=== PATIENT | male | born 1965 | race Caucasian/White ===

== ENCOUNTER 2018-07-27 09:39 | Inpatient (IN) | payer OTHER ==
[2018-07-27 10:40] VITALS: BMI 22.2
--- NOTE | 2018-07-27 12:48 | HP ---
CIWA Score Nausea/Vomitin-No Nausea/No Vomiting Muscle Tremors: 4-Moderate,w/Arms Extend Anxiety: 4-Mod. Anxious/Guarded Agitation: 4-Moderately Restless Paroxysmal Sweats: 3 Orientation: 0-Oriented Tacttile Disturbances: 0-None Auditory Disturbances: 0-None Visual Disturbances: 0-None Headache: 1-Very Mild CIWA-Ar Total Score: 16 - Admission Criteria OASAS Guidelines: Admission for Medically Managed Detox: Requires at least one of the followin. CIWA greater than 12 2. Seizures within the past 24 hours 3. Delirium tremens within the past 24 hours 4. Hallucinations within the past 24 hours 5. Acute intervention needed for co occurring medical disorder 6. Acute intervention needed for co occurring psychiatric disorder 7. Severe withdrawal that cannot be handled at a lower level of care (continued vomiting, continued diarrhea, abnormal vital signs) requiring intravenous medication and/or fluids 8. Admission ROS [facility] - [facility] Chief Complaint: I recently relapsed and need to start anew. I was clean/sober close to 12years. Allergies/Adverse Reactions: Allergies Allergy/AdvReac Type Severity Reaction Status Date / Time shellfish derived Allergy Severe Hives Verified 07/27/18 11:48 No Known Drug Allergies Allergy Verified 07/27/18 11:48 History of Present Illness: pt is a 53yr old male with a long sobriety (12years) who recently relapsed with a dependence of alcohol. Pt is on a MMTP program last dosed yesterday with 80mg pending verification. Exam Limitations: No Limitations - Ebola screening Have you traveled outside of the country in the last 21 days: No Have you had contact with anyone from an Ebola affected area: No Have you been sick,other than usual withdrawal symptoms: No - Review of Systems Constitutional: Chills, Diaphoresis, Loss of Appetite, Night Sweats, Changes in sleep EENT: reports: Tearing, Nose Congestion Respiratory: reports: No Symptoms reported Cardiac: reports: No Symptoms Reported GI: reports: Poor Appetite, Poor Fluid Intake : reports: No Symptoms Reported Musculoskeletal: reports: Back Pain Integumentary: reports: Flushing, Sweating, Other (open chronic ulcer to left inner ankle) Neuro: reports: Headache, Tingling, Tremors Endocrine: reports: Excessive Sweating, Flushing, Intolerance to Cold, Intolerance to Heat Hematology: reports: No Symptoms Reported Psychiatric: reports: Judgement Intact, Mood/Affect Appropiate, Orientated x3, Agitated, Anxious Other Systems: Reviewed and Negative Patient History - Patient Medical History Hx Anemia: No Hx Asthma: No Hx Chronic Obstructive Pulmonary Disease (COPD): No Hx Cancer: No Hx Cardiac Disorders: No Hx Congestive Heart Failure: No Hx Hypertension: No Hx Hypercholesterolemia: No Hx Pacemaker: No HX Cerebrovascular Accident: No Hx Seizures: No Hx Dementia: No Hx Diabetes: No Hx Gastrointestinal Disorders: No Hx Liver Disease: No Hx Genitourinary Disorders: No Hx Sexually Transmitted Disorders: No Hx Renal Disease (ESRD): No Hx Thyroid Disease: No Hx Human Immunodeficiency Virus (HIV): Yes (since 1982) Hx Hepatitis C: Yes Hx Depression: Yes Hx Suicide Attempt: Yes (hanged self with a rope at age 24) Hx Schizophrenia: No - Patient Surgical History Past Surgical History: No Hx Neurologic Surgery: No Hx Cataract Extraction: No Hx Cardiac Surgery: No Hx Lung Surgery: No Hx Breast Surgery: No Hx Breast Biopsy: No Hx Abdominal Surgery: No Hx Appendectomy: No Hx Cholecystectomy: No Hx Genitourinary Surgery: No Hx Section: No Hx Orthopedic Surgery: No Anesthesia Reaction: No - PPD History Previous Implant?: Yes Documented Results: Negative w/proof Implanted On Prior [facility] Admission?: Yes Date: 02/20/13 Results: 0 mm PPD to be Administered?: Yes - Reproductive History Patient is a Female of Child Bearing Age (11 -55 yrs old): No - Smoking Cessation Smoking history: Current every day smoker Have you smoked in the past 12 months: Yes Aproximately how many cigarettes per day: 10 Hx Chewing Tobacco Use: No Initiated information on smoking cessation: Yes 'Breaking Loose' booklet given: 07/27/18 - Substance & Tx. History Hx Alcohol Use: Yes Hx Substance Use: Yes Substance Use Type: Alcohol, Heroin Hx Substance Use Treatment: Yes (last detox 2012 [facility]) - Substances Abused Heroin Route: Injection Frequency: Daily Amount used: 4-5 bags Age of first use: 10 Date of Last Use: 07/27/18 Alcohol-beer Route: Oral Frequency: Daily Amount used: 2-6 pks. Age of first use: 48 Date of Last Use: 07/26/18 Family Disease History - Family Disease History Family History: Denies Admission Physical Exam BHS - Vital Signs Vital Signs: Vital Signs - 24 hr 07/27/18 10:37 Temperature 98.0 F Pulse Rate 59 L Respiratory 18 Rate Blood Pressure 130/89 - Physical General Appearance: Yes: Appropriately Dressed, Mild Distress, Thin, Tremorous, Irritable, Sweating, Anxious HEENTM: Yes: Hearing grossly Normal, Normal Voice, Nasal Congestion, Rhinorrhea Respiratory: Yes: Lungs Clear, Normal Breath Sounds, No Respiratory Distress Neck: Yes: No masses,lesions,Nodules Breast: Yes: Within Normal Limits Cardiology: Yes: Regular Rhythm, Regular Rate, S1, S2 Abdominal: Yes: Normal Bowel Sounds, Non Tender, Soft Genitourinary: Yes: Within Normal Limits Back: Yes: Normal Inspection Musculoskeletal: Yes: full range of Motion Extremities: Yes: Normal Capillary Refill, Non-Tender, Tremors Neurological: Yes: Fully Oriented, Alert, Normal Response Integumentary: Yes: Normal Color, Track Staples Lymphatic: Yes: Within Normal Limits - Diagnostic (1) Alcohol dependence with uncomplicated withdrawal Current Visit: Yes Status: Chronic (2) Nicotine dependence Current Visit: Yes Status: Chronic Qualifiers: Nicotine product type: cigarettes Substance use status: uncomplicated Qualified Code(s): F17.210 - Nicotine dependence, cigarettes, uncomplicated (3) Bipolar disorder Current Visit: No Status: Active (4) Hepatitis C carrier Current Visit: No Status: Active (5) Human immunodeficiency virus infection Current Visit: Yes Status: Chronic (6) Weight decreased Current Visit: Yes Status: Chronic (7) Chronic ulcer of ankle Current Visit: Yes Status: Acute Qualifiers: Laterality: left Non-pressure ulcer stage: limited to breakdown of skin Qualified Code(s): L97.321 - Non-pressure chronic ulcer of left ankle limited to breakdown of skin Cleared for Admission [facility] - Detox or Rehab [facility] Level of Care: Medically Managed Detox Regimen/Protocol: Librium [facility] Breath Alcohol Content Breath Alcohol Content: 0 Urine Drug Screen - Results Drug Screen Negative: No Urine Drug Screen Results: DELL-Cocaine, OPI-Opiates, OXY-Oxycodone, FEN-Fentanyl
[2018-07-27] MEDS ORDERED: MENTHOL/PHENOL 1 EACH UD MM PRN (12:54)
[2018-07-27] MEDS ORDERED: chlordiazePOXIDE HCL 25 MG CAPSULE PO PRN (12:54)
[2018-07-27] MEDS ORDERED: hydrOXYzine PAMOATE 50 MG CAPSULE (FP) PO PRN (12:54)
[2018-07-27] MEDS ORDERED: MAGNESIUM CITRATE 300 ML BOTTLE PO PRN (12:54)
[2018-07-27] MEDS ORDERED: NICOTINE POLACRILEX 4 MG GUM BC PRN (12:54)
[2018-07-27] MEDS ORDERED: MAGNESIUM HYDROX 2400MG/30ML ORAL SUSPENSION 30 ML CUP PO PRN (12:54)
[2018-07-27] MEDS ORDERED: LOPERAMIDE HCL 2 MG CAPSULE PO PRN (12:54)
[2018-07-27] MEDS ORDERED: IBUPROFEN 400 MG TABLET (FP) PO PRN (12:54)
[2018-07-27] MEDS ORDERED: P-EPHED 60MG/TRIPROLIDI 2.5MG TABLET PO PRN (12:54)
[2018-07-27] MEDS ORDERED: guaiFENesin/D-METHORPHAN HB 10 ML UNIT-DOSE CUPS PO PRN (12:54)
[2018-07-27] MEDS ORDERED: chlordiazePOXIDE HCL 25 MG CAPSULE PO ONE (14:00)
[2018-07-27] MEDS: chlordiazePOXIDE HCL 25 MG CAPSULE PO SCH ×2 (17:18→22:27)
[2018-07-27] MEDS ORDERED: MELATONIN 5 MG TABLETS PO PRN (22:00)
[2018-07-27] MEDS: THIAMINE HCL 100 MG TABLET (FP) PO SCH (22:26)
[2018-07-27] MEDS: SILVER SULFADIAZINE 1% TOP CREAM 50 GM JAR TP SCH (22:28)
[2018-07-27 23:20] LABS: URINE APPEARANCE TURBID; URINE BILIRUBIN NEGATIVE (<2.0 mg/dL); URINE COLOR AMBER; URINE GLUCOSE (UA) NEGATIVE (NEGATIVE); URINE KETONE TRACE (NEGATIVE); URINE LEUK ESTERASE NEGATIVE (NEGATIVE); URINE NITRITE NEGATIVE (NEGATIVE); URINE PROTEIN 1+ (NEGATIVE)
[2018-07-27 23:32] LABS: EPI CELLS RARE /HPF (FEW); URINE BACTERIA RARE /hpf (NONE SEEN); URINE HYALINE CAST 1 /lpf; URINE MUCUS MANY
[2018-07-28] MEDS: chlordiazePOXIDE HCL 25 MG CAPSULE PO SCH ×4 (05:39→22:28)
[2018-07-28] MEDS: DOLUTEGRAVIR SODIUM 50 MG TABLET (NON-FORMULARY) PO SCH (05:39)
[2018-07-28] MEDS: EMTRICITABINE/TENOFOV ALAFENAM (DESCOVY) TABLET PO SCH (05:39)
[2018-07-28] MEDS: SILVER SULFADIAZINE 1% TOP CREAM 50 GM JAR TP SCH ×2 (10:32→22:29)
[2018-07-28] MEDS: PRENATAL VITAMINS W/ FOLIC ACID TABLET (FP) PO SCH (10:32)
[2018-07-28] MEDS: NICOTINE 21 MG/24 HOURS TOPICAL PATCH TD SCH (10:32)
[2018-07-28 10:49] LABS: HEMOGLOBIN 10.9 GM/dL (11.7-16.9); MCH 30.1 pg (25.7-33.7); MCHC 32.9 g/dl (32.0-35.9); MEAN CELL VOLUME 91.3 fl (80-96); MEAN PLT VOLUME 9.1 fl (7.5-11.1); PLATELET COUNT 180 K/MM3 (134-434); RBC 3.62 M/mm3 (4.00-5.60); RDW 12.9 % (11.9-15.9); WHITE BLOOD COUNT 3.9 K/mm3 (4.0-10.0)
[2018-07-28 11:12] LABS: ALBUMIN 3.7 g/dl (3.4-5.0); ALK PHOS 82 U/L (45-117); ANION GAP 6 MMOL/L (8-16); BILIRUBIN,TOTAL 0.3 mg/dL (0.2-1); BLOOD UREA NITROGEN 17 mg/dL (7-18); CALCIUM 8.2 mg/dL (8.5-10.1); CHLORIDE 105 mmol/L (98-107); CO2 29 mmol/L (21-32); CREATININE 1.4 mg/dL (0.55-1.3); GLUCOSE,RANDOM 98 mg/dL (74-106); POTASSIUM 4.2 mmol/L (3.5-5.1); SGOT/AST 21 U/L (15-37); SGPT/ALT 25 U/L (13-61); SODIUM 140 mmol/L (136-145); TOT PROT 8.3 g/dl (6.4-8.2)
[2018-07-28] MEDS ORDERED: METHADONE HCL 40 MG DISPERSABLE TABLET PO ONE (11:15)
--- NOTE | 2018-07-28 12:02 | PN ---
S CIWA - CIWA Score Nausea/Vomitin-No Nausea/No Vomiting Muscle Tremors: 4-Moderate,w/Arms Extend Anxiety: 4-Mod. Anxious/Guarded Agitation: 2 Paroxysmal Sweats: 1-Minimal Palms Moist Orientation: 0-Oriented Tacttile Disturbances: 0-None Auditory Disturbances: 0-None Visual Disturbances: 0-None Headache: 0-None Present CIWA-Ar Total Score: 11 [facility] Progress Note (SOAP) Subjective: ANXIETY, SWEATS,INTERMITTENT SLEEP. Objective: 07/28/18 12:01 Vital Signs 07/28/18 07/28/18 06:28 09:43 Temperature 96.9 F L 97.2 F L Pulse Rate 51 L 67 Respiratory 18 18 Rate Blood Pressure 145/82 119/86 Laboratory Tests 07/27/18 07/28/18 07/28/18 23:00 05:30 05:30 WBC 3.9 L RBC 3.62 L Hgb 10.9 L Hct 33.0 L MCV 91.3 MCH 30.1 MCHC 32.9 RDW 12.9 Plt Count 180 D MPV 9.1 Sodium 140 Potassium 4.2 Chloride 105 Carbon Dioxide 29 Anion Gap 6 L BUN 17 Creatinine 1.4 H Creat Clearance w eGFR 52.62 Random Glucose 98 Calcium 8.2 L Total Bilirubin 0.3 AST 21 ALT 25 Alkaline Phosphatase 82 Total Protein 8.3 H Albumin 3.7 Urine Color Radha Urine Appearance Turbid Urine pH 5.0 Ur Specific [place] 1.027 Urine Protein 1+ H Urine Glucose (UA) Negative Urine Ketones Trace H Urine Blood Negative Urine Nitrite Negative Urine Bilirubin Negative Urine Urobilinogen 2.0 Ur Leukocyte Esterase Negative Urine WBC (Auto) 1 Urine RBC (Auto) <1 Ur Epithelial Cells Rare Urine Bacteria Rare Hyaline Casts 1 Urine Mucus Many BORDERLINE LOW H/H PT HAS A HX OF BORDERLINE H/H IN PREVIOUS ADMISSIONS Assessment: 07/28/18 12:01 WITHDRAWAL SX BORDERLINE ANEMIA Plan: CONTINUE DETOX FEOSOL 325 MG PO DAILY
--- NOTE | 2018-07-28 12:02 | CONSULT ---
[facility] Psychiatric Consult - Data Date of interview: 07/28/18 Admission source: [facility] Identifying data: Readmission to [facility] for this 53 y/o male seeking detoxification treatment on for cocaine, opioid and alcohol dependence. Patient is single, a father of one, domiciled, unemployed and supported via [employer] benefits. Substance Abuse History: Confirmed by the patient in my interview. Detail in this segment of current [facility] report : Smoking history: Current every day smoker. Have you smoked in the past 12 months: Yes. Aproximately how many cigarettes per day: 10. Hx Chewing Tobacco Use: No. Initiated information on smoking cessation: Yes. 'Breaking Loose' booklet given: 07/27/18. - Substance & Tx. History. Hx Alcohol Use: Yes. Hx Substance Use: Yes. Substance Use Type: Alcohol, Heroin. Hx Substance Use Treatment: Yes (last detox 2013 [facility]). - Substances Abused. Heroin. Route: Injection. Frequency: Daily. Amount used: 4-5 bags. Age of first use: 10. Date of Last Use: 07/27/18. Alcohol- beer. Route: Oral. Frequency: Daily. Amount used: 2-6 pks. Age of first use : 48. Date of Last Use: 07/26/18 Medical History: Hypertension and HIV infection since 1982 (on ART medications). Psychiatric History: Patient admits to a history of multiple psychiatric hospitalizations ([facility] + [facility]). Last hospitalized in 2011 (self-report). Diagnosed with MDD. Mr Blanco indicates that he used to see a psychiatrist at the [facility] in the [place]. Dropped out of psychiatric aftercare four years ago (has not taken psychotropic medications for same period of time). Names of medications ( prescribed in the past) : not recalled by the patient. Admits to four suicide attempts via various means (hanging, jumping onto traffic path, overdosing with pills). Most recent suicide attempt occurred in 2017 (overdose). Patient is currently on methadone maintenance (80 mg/day) at the [facility]. Physical/Sexual Abuse/Trauma History: Not discussed. Patient declines. Additional Comment: Urine Drug Screen Results: DELL-Cocaine, OPI-Opiates, OXY- Oxycodone, FEN-Fentanyl. Noted. Mental Status Exam - Mental Status Exam Alert and Oriented to: Time, Place, Person Cognitive Function: Good Patient Appearance: Well Groomed Mood: Nervous, Withdrawn, Anxious Affect: Mood Congruent Patient Behavior: Fatigued, Appropriate, Cooperative Speech Pattern: Clear, Appropriate Voice Loudness: Normal Thought Process: Intact, Goal Oriented Thought Disorder: Not Present Hallucinations: Denies Suicidal Ideation: Denies Homicidal Ideation: Denies Insight/Judgement: Poor Sleep: Well Appetite: Good Muscle strength/Tone: Normal Gait/Station: Normal Psychiatric Findings - Problem List ([place] 1, 2,3) (1) Opioid dependence on agonist therapy Current Visit: Yes Status: Acute (2) Alcohol dependence with uncomplicated withdrawal Current Visit: Yes Status: Acute (3) Nicotine dependence Current Visit: Yes Status: Chronic Qualifiers: Nicotine product type: cigarettes Substance use status: uncomplicated Qualified Code(s): F17.210 - Nicotine dependence, cigarettes, uncomplicated (4) Substance induced mood disorder Current Visit: Yes Status: Acute (5) Non-compliant patient Current Visit: Yes Status: Chronic - Initial Treatment Plan Initial Treatment Plan: Psychoeducation. Sleep hygiene. Detoxification. Patient is encouraged to re-enlist in OPD follow-up (recreate a therapeutic alliance with a therapist/psychiatrist + engage in psychotherapy + discuss need for psychotropic medications with OPD providers + commit to relapse prevention protocols). In the meantime, AA/NA meetings. Group/supportive therapy sessions. Observation.
[2018-07-28] MEDS: FERROUS SO4 325 MG TABLET (FP) PO SCH (13:16)
[2018-07-28] MEDS: THIAMINE HCL 100 MG TABLET (FP) PO SCH (22:28)
[2018-07-29] MEDS: METHADONE HCL 40 MG DISPERSABLE TABLET PO SCH (05:29)
[2018-07-29] MEDS: chlordiazePOXIDE HCL 25 MG CAPSULE PO SCH ×2 (05:29→10:13)
[2018-07-29] MEDS: DOLUTEGRAVIR SODIUM 50 MG TABLET (NON-FORMULARY) PO SCH (05:29)
[2018-07-29] MEDS: EMTRICITABINE/TENOFOV ALAFENAM (DESCOVY) TABLET PO SCH (05:30)
[2018-07-29] MEDS: FERROUS SO4 325 MG TABLET (FP) PO SCH (10:13)
[2018-07-29] MEDS: PRENATAL VITAMINS W/ FOLIC ACID TABLET (FP) PO SCH (10:13)
[2018-07-29] MEDS: NICOTINE 21 MG/24 HOURS TOPICAL PATCH TD SCH (10:14)
[2018-07-29] MEDS: SILVER SULFADIAZINE 1% TOP CREAM 50 GM JAR TP SCH ×2 (10:14→22:06)
--- NOTE | 2018-07-29 15:04 | PN ---
[facility] CIWA - CIWA Score Nausea/Vomitin-No Nausea/No Vomiting Muscle Tremors: 2 Anxiety: 3 Agitation: 2 Paroxysmal Sweats: 2 Orientation: 0-Oriented Tacttile Disturbances: 0-None Auditory Disturbances: 0-None Visual Disturbances: 0-None Headache: 0-None Present CIWA-Ar Total Score: 9 [facility] Progress Note (SOAP) Subjective: Anxious, interrupted sleep Objective: 07/29/18 15:00 Last Vital Signs Temp Pulse Resp BP Pulse Ox 97.3 F L 58 L 18 119/75 07/29/18 13:21 07/29/18 13:21 07/29/18 13:21 07/29/18 13:21 Laboratory Tests 07/27/18 07/28/18 07/28/18 23:00 05:30 05:30 WBC 3.9 L RBC 3.62 L Hgb 10.9 L Hct 33.0 L MCV 91.3 MCH 30.1 MCHC 32.9 RDW 12.9 Plt Count 180 D MPV 9.1 Sodium 140 Potassium 4.2 Chloride 105 Carbon Dioxide 29 Anion Gap 6 L BUN 17 Creatinine 1.4 H Creat Clearance w eGFR 52.62 Random Glucose 98 Calcium 8.2 L Total Bilirubin 0.3 AST 21 ALT 25 Alkaline Phosphatase 82 Total Protein 8.3 H Albumin 3.7 Urine Color Radha Urine Appearance Turbid Urine pH 5.0 Ur Specific [place] 1.027 Urine Protein 1+ H Urine Glucose (UA) Negative Urine Ketones Trace H Urine Blood Negative Urine Nitrite Negative Urine Bilirubin Negative Urine Urobilinogen 2.0 Ur Leukocyte Esterase Negative Urine WBC (Auto) 1 Urine RBC (Auto) <1 Ur Epithelial Cells Rare Urine Bacteria Rare Hyaline Casts 1 Urine Mucus Many RPR Titer 07/28/18 05:30 WBC RBC Hgb Hct MCV MCH MCHC RDW Plt Count MPV Sodium Potassium Chloride Carbon Dioxide Anion Gap BUN Creatinine Creat Clearance w eGFR Random Glucose Calcium Total Bilirubin AST ALT Alkaline Phosphatase Total Protein Albumin Urine Color Urine Appearance Urine pH Ur Specific [place] Urine Protein Urine Glucose (UA) Urine Ketones Urine Blood Urine Nitrite Urine Bilirubin Urine Urobilinogen Ur Leukocyte Esterase Urine WBC (Auto) Urine RBC (Auto) Ur Epithelial Cells Urine Bacteria Hyaline Casts Urine Mucus RPR Titer Nonreactive Labs reviewed: serum creatinine 1.4, h/h 10.9/33, abnormal UA Assessment: 07/29/18 15:02 Withdrawal symptoms Noted with NICHOLE, anemia and abnormal UA Plan: Continue detox NICHOLE: encouraged PO water intake, repeat BMP Anemia: has h/o anemia; continue ferrous sulfate Abnormal UA: repeat UA
[2018-07-29] MEDS: chlordiazePOXIDE 5 MG CAPSULE PO SCH ×2 (17:10→22:05)
[2018-07-29] MEDS: THIAMINE HCL 100 MG TABLET (FP) PO SCH (22:06)
[2018-07-30] MEDS: MAG HYDROX/AL HYDROX/SIMETH 30 ML UNIT-DOSE CUP PO PRN (00:20)
[2018-07-30] MEDS: ACETAMINOPHEN 325 MG TABLET (FP) PO PRN (04:21)
[2018-07-30] MEDS: chlordiazePOXIDE 5 MG CAPSULE PO SCH ×2 (05:33→10:39)
[2018-07-30] MEDS: DOLUTEGRAVIR SODIUM 50 MG TABLET (NON-FORMULARY) PO SCH (05:33)
[2018-07-30] MEDS: EMTRICITABINE/TENOFOV ALAFENAM (DESCOVY) TABLET PO SCH (05:33)
[2018-07-30] MEDS: METHADONE HCL 40 MG DISPERSABLE TABLET PO SCH (05:33)
[2018-07-30 10:33] LABS: ANION GAP 5 MMOL/L (8-16); BLOOD UREA NITROGEN 20 mg/dL (7-18); CALCIUM 8.8 mg/dL (8.5-10.1); CHLORIDE 103 mmol/L (98-107); CO2 30 mmol/L (21-32); CREATININE 1.1 mg/dL (0.55-1.3); GLUCOSE,RANDOM 119 mg/dL (74-106); POTASSIUM 4.2 mmol/L (3.5-5.1); SODIUM 138 mmol/L (136-145)
[2018-07-30] MEDS: NICOTINE 21 MG/24 HOURS TOPICAL PATCH TD SCH (10:37)
[2018-07-30] MEDS: FERROUS SO4 325 MG TABLET (FP) PO SCH (10:37)
[2018-07-30] MEDS: PRENATAL VITAMINS W/ FOLIC ACID TABLET (FP) PO SCH (10:37)
[2018-07-30] MEDS: SILVER SULFADIAZINE 1% TOP CREAM 50 GM JAR TP SCH ×2 (10:38→22:21)
--- NOTE | 2018-07-30 11:15 | PN ---
S Progress Note (SOAP) Subjective: feeling better no tremor no gi distress less sweat left foot chronic ulcer x 2 years dressing change after showered daily scant drainage serosanquino color no offensive odor Objective: 07/30/18 11:14 Vital Signs Temperature 98.6 F 07/30/18 09:23 Pulse Rate 66 07/30/18 09:23 Respiratory Rate 18 07/30/18 09:23 Blood Pressure 115/71 07/30/18 09:23 O2 Sat by Pulse Oximetry (%) Laboratory Last Values WBC 3.9 K/mm3 (4.0-10.0) L 07/28/18 05:30 RBC 3.62 M/mm3 (4.00-5.60) L 07/28/18 05:30 Hgb 10.9 GM/dL (11.7-16.9) L 07/28/18 05:30 Hct 33.0 % (35.4-49) L 07/28/18 05:30 MCV 91.3 fl (80-96) 07/28/18 05:30 MCH 30.1 pg (25.7-33.7) 07/28/18 05:30 MCHC 32.9 g/dl (32.0-35.9) 07/28/18 05:30 RDW 12.9 % (11.9-15.9) 07/28/18 05:30 Plt Count 180 K/MM3 (134-434) D 07/28/18 05:30 MPV 9.1 fl (7.5-11.1) 07/28/18 05:30 Sodium 138 mmol/L (136-145) 07/30/18 06:30 Potassium 4.2 mmol/L (3.5-5.1) 07/30/18 06:30 Chloride 103 mmol/L (98-107) 07/30/18 06:30 Carbon Dioxide 30 mmol/L (21-32) 07/30/18 06:30 Anion Gap 5 MMOL/L (8-16) L 07/30/18 06:30 BUN 20 mg/dL (7-18) H 07/30/18 06:30 Creatinine 1.1 mg/dL (0.55-1.3) 07/30/18 06:30 Creat Clearance w eGFR > 60 (>60) 07/30/18 06:30 Random Glucose 119 mg/dL (74-106) H 07/30/18 06:30 Calcium 8.8 mg/dL (8.5-10.1) 07/30/18 06:30 Total Bilirubin 0.3 mg/dL (0.2-1) 07/28/18 05:30 AST 21 U/L (15-37) 07/28/18 05:30 ALT 25 U/L (13-61) 07/28/18 05:30 Alkaline Phosphatase 82 U/L (45-117) 07/28/18 05:30 Total Protein 8.3 g/dl (6.4-8.2) H 07/28/18 05:30 Albumin 3.7 g/dl (3.4-5.0) 07/28/18 05:30 Urine Color Radha 07/27/18 23:00 Urine Appearance Turbid 07/27/18 23:00 Urine pH 5.0 (5.0-8.0) 07/27/18 23:00 Ur Specific [place] 1.027 (1.010-1.035) 07/27/18 23:00 Urine Protein 1+ (NEGATIVE) H 07/27/18 23:00 Urine Glucose (UA) Negative (NEGATIVE) 07/27/18 23:00 Urine Ketones Trace (NEGATIVE) H 07/27/18 23:00 Urine Blood Negative (NEGATIVE) 07/27/18 23:00 Urine Nitrite Negative (NEGATIVE) 07/27/18 23:00 Urine Bilirubin Negative (<2.0 mg/dL) 07/27/18 23:00 Urine Urobilinogen 2.0 mg/dL (0.2-1.0) 07/27/18 23:00 Ur Leukocyte Esterase Negative (NEGATIVE) 07/27/18 23:00 Urine WBC (Auto) 1 /hpf (3-5) 07/27/18 23:00 Urine RBC (Auto) <1 /hpf (0-3) 07/27/18 23:00 Ur Epithelial Cells Rare /HPF (FEW) 07/27/18 23:00 Urine Bacteria Rare /hpf (NONE SEEN) 07/27/18 23:00 Hyaline Casts 1 /lpf 07/27/18 23:00 Urine Mucus Many 07/27/18 23:00 RPR Titer Nonreactive (NONREACTIVE) 07/28/18 05:30 lab noted Assessment: 07/30/18 11:15 mild withdrawal sx Plan: medically supervised detox
[2018-07-30] MEDS: chlordiazePOXIDE HCL 10 MG CAPSULE PO SCH ×2 (17:23→22:21)
[2018-07-30] MEDS: THIAMINE HCL 100 MG TABLET (FP) PO SCH (22:21)
[2018-07-31] MEDS: ACETAMINOPHEN 325 MG TABLET (FP) PO PRN (00:37)
[2018-07-31] MEDS: MAG HYDROX/AL HYDROX/SIMETH 30 ML UNIT-DOSE CUP PO PRN (03:29)
[2018-07-31] MEDS: METHADONE HCL 40 MG DISPERSABLE TABLET PO SCH (05:16)
[2018-07-31] MEDS: chlordiazePOXIDE HCL 10 MG CAPSULE PO SCH ×2 (05:17→10:04)
[2018-07-31] MEDS: DOLUTEGRAVIR SODIUM 50 MG TABLET (NON-FORMULARY) PO SCH (05:17)
[2018-07-31] MEDS: EMTRICITABINE/TENOFOV ALAFENAM (DESCOVY) TABLET PO SCH (05:17)
[2018-07-31] MEDS: SILVER SULFADIAZINE 1% TOP CREAM 50 GM JAR TP SCH (10:00)
[2018-07-31] MEDS: FERROUS SO4 325 MG TABLET (FP) PO SCH (10:00)
[2018-07-31] MEDS: PRENATAL VITAMINS W/ FOLIC ACID TABLET (FP) PO SCH (10:00)
[2018-07-31] MEDS: NICOTINE 21 MG/24 HOURS TOPICAL PATCH TD SCH (10:01)
--- NOTE | 2018-07-31 10:26 | DS ---
[facility] Detox Discharge Summary Admission Date: 07/27/18 Discharge Date: 07/31/18 - History Present History: Alcohol Dependence, Cocaine Dependence, MMTP - Physical Exam Results Vital Signs: Vital Signs Temperature 97 F L 07/31/18 06:16 Pulse Rate 57 L 07/31/18 06:16 Respiratory Rate 16 07/31/18 06:16 Blood Pressure 143/83 07/31/18 06:16 O2 Sat by Pulse Oximetry (%) Pertinent Admission Physical Exam Findings: Pt was admitted for alcohol withdrawal detox, continued on methadone 80mg/day. Has an L leg ulcer that is healing. Pt completed detox protocol successfully. Was discharged to [facility]. Pt has HIV- and has medications with him which he will use at [facility] - Treatment Hospital Course: Detox Protocol Followed, Detoxed Safely, Responded well, Discharged Condition Good, Rehab Referral Accepted Patient has Accepted a Rehab Referral to: [facility] - Medication Discharge Medications: Ambulatory Orders Dolutegravir Sodium [Tivicay] 50 mg PO DAILY 07/27/18 Emtricitabine/Tenofov Alafenam [Descovy 200-25 mg Tablet (Nf)] 1 each PO DAILY 07/27/18 - Diagnosis (1) Alcohol dependence with uncomplicated withdrawal Current Visit: Yes Status: Acute (2) Chronic ulcer of ankle Current Visit: Yes Status: Acute Qualifiers: Laterality: left Non-pressure ulcer stage: limited to breakdown of skin Qualified Code(s): L97.321 - Non-pressure chronic ulcer of left ankle limited to breakdown of skin (3) Human immunodeficiency virus infection Current Visit: Yes Status: Chronic (4) Nicotine dependence Current Visit: Yes Status: Chronic Qualifiers: Nicotine product type: cigarettes Substance use status: uncomplicated Qualified Code(s): F17.210 - Nicotine dependence, cigarettes, uncomplicated (5) Opioid dependence on agonist therapy Current Visit: Yes Status: Chronic
--- NOTE | 2018-07-31 10:32 | PN ---
S Progress Note Note: Nursing staff witnessed pt spilling morning coffee on his leg- pt denies any injury related to this spill- says coffee was not hot PE- shows no injury to where he spilt coffee. Pt has a chronic leg ulcer which is bandaged and is healing per pt
[2018-07-31 10:50] VITALS: BP 117/71; PULSE 60; TEMP 98.2
[2018-07-31 14:44] LABS: URINE APPEARANCE SLCLOUDY; URINE BILIRUBIN NEGATIVE (<2.0 mg/dL); URINE COLOR YELLOW; URINE GLUCOSE (UA) NEGATIVE (NEGATIVE); URINE KETONE NEGATIVE (NEGATIVE); URINE LEUK ESTERASE NEGATIVE (NEGATIVE); URINE NITRITE NEGATIVE (NEGATIVE); URINE PROTEIN NEGATIVE (NEGATIVE); URINE UROBILINOGEN NEGATIVE mg/dL (0.2-1.0)
== END 2018-07-31 12:58 | disposition home or self-care (01) | DRG 773 ==
LOC: YASAS 09:39 → Y3N 13:15
PROC: HZ2ZZZZ Detoxification Services for Substance Abuse Treatment (ICD-10-PCS; principal; 2018-07-27)
DX: F10.230 Alcohol dependence with withdrawal, uncomplicated (principal); F11.20 Opioid dependence, uncomplicated; F17.210 Nicotine dependence, cigarettes, uncomplicated; F31.9 Bipolar disorder, unspecified; F19.24 Other psychoactive substance dependence with psychoactive substance-induced mood disorder; Z21 Asymptomatic human immunodeficiency virus [HIV] infection status; D64.9 Anemia, unspecified; B18.2 Chronic viral hepatitis C; N17.9 Acute kidney failure, unspecified; L97.321 Non-pressure chronic ulcer of left ankle limited to breakdown of skin; R82.90 Unspecified abnormal findings in urine; Z91.5 Personal history of self-harm; Z91.19 Patient's noncompliance with other medical treatment and regimen
CPT/HCPCS: 36415; 80048; 80053; 81003; 81015; 85027; 86593

== ENCOUNTER 2018-11-19 18:14 | Inpatient (IN) | payer OTHER ==
[2018-11-19 20:17] VITALS: BMI 23.0
--- NOTE | 2018-11-20 02:33 | HP ---
CIWA Score Nausea/Vomitin (VOMITING X 3) Muscle Tremors: 4-Moderate,w/Arms Extend Anxiety: 4-Mod. Anxious/Guarded Agitation: 4-Moderately Restless Paroxysmal Sweats: 3 Orientation: 0-Oriented Tacttile Disturbances: 0-None Auditory Disturbances: 0-None Visual Disturbances: 0-None Headache: 0-None Present CIWA-Ar Total Score: 18 - Admission Criteria OASAS Guidelines: Admission for Medically Managed Detox: Requires at least one of the followin. CIWA greater than 12 2. Seizures within the past 24 hours 3. Delirium tremens within the past 24 hours 4. Hallucinations within the past 24 hours 5. Acute intervention needed for co occurring medical disorder 6. Acute intervention needed for co occurring psychiatric disorder 7. Severe withdrawal that cannot be handled at a lower level of care (continued vomiting, continued diarrhea, abnormal vital signs) requiring intravenous medication and/or fluids 8. Admission ROS [facility] Chief Complaint: ALCOHOL WITHDRAWAL SYMPTOMS Allergies/Adverse Reactions: Allergies Allergy/AdvReac Type Severity Reaction Status Date / Time shellfish derived Allergy Severe Hives Verified 07/27/18 11:48 No Known Drug Allergies Allergy Verified 07/27/18 11:48 History of Present Illness: 53 Years old male with 11 years of alcohol dependence is seeking admission to detox. Patient has been in previous detox and reports 10 years of sobriety. He has medical history of HIV +, Hep. C, Hep. B, depression, anemia and anxiety. He reports suicide attempt in 1992 and denies suicidal ideation at this time He is on Methadone 80mg tablet oral daily at [facility] at [place], [place]. Dose is yet to be confirmed by the nurse Exam Limitations: No Limitations - Ebola screening Have you traveled outside of the country in the last 21 days: No (N) Have you had contact with anyone from an Ebola affected area: No Have you been sick,other than usual withdrawal symptoms: No Do you have a fever: No - Review of Systems Constitutional: Chills, Loss of Appetite, Night Sweats, Changes in sleep EENT: reports: Sinus Pressure Respiratory: reports: No Symptoms reported Cardiac: reports: No Symptoms Reported GI: reports: Nausea, Poor Appetite, Poor Fluid Intake, Abdominal cramping : reports: No Symptoms Reported Musculoskeletal: reports: Back Pain Integumentary: reports: Dryness, Flushing Neuro: reports: Headache, Tremors Endocrine: reports: No Symptoms Reported Hematology: reports: No Symptoms Reported Psychiatric: reports: Anxious, Depressed Other Systems: Reviewed and Negative Patient History - Patient Medical History Hx Anemia: No Hx Asthma: No Hx Chronic Obstructive Pulmonary Disease (COPD): No Hx Cancer: No Hx Cardiac Disorders: No Hx Congestive Heart Failure: No Hx Hypertension: Yes Hx Hypercholesterolemia: No Hx Pacemaker: No HX Cerebrovascular Accident: No Hx Seizures: No Hx Dementia: No Hx Diabetes: No Hx Gastrointestinal Disorders: No Hx Liver Disease: No Hx Genitourinary Disorders: No Hx Sexually Transmitted Disorders: No Hx Renal Disease (ESRD): No Hx Thyroid Disease: No Hx Human Immunodeficiency Virus (HIV): Yes (since 1982) Hx Hepatitis C: Yes (Not on medication) Hx Depression: Yes (Not on mjedication) Hx Suicide Attempt: Yes (hanged self with a rope at age 24) Hx Schizophrenia: No Other Medical History: Anxiety - Not on medication - Patient Surgical History Past Surgical History: No - PPD History Previous Implant?: Yes Documented Results: Negative w/proof Date: 07/29/18 Results: 0 mm PPD to be Administered?: No - Reproductive History Patient is a Female of Child Bearing Age (11 -55 yrs old): No (male) - Smoking Cessation Smoking history: Current every day smoker Have you smoked in the past 12 months: Yes Aproximately how many cigarettes per day: 10 Hx Chewing Tobacco Use: No Initiated information on smoking cessation: Yes 'Breaking Loose' booklet given: 11/20/18 - Substance & Tx. History Hx Alcohol Use: Yes Hx Substance Use: Yes Substance Use Type: Alcohol, Cocaine, Heroin, Opiates Hx Substance Use Treatment: Yes ([facility]) - Substances Abused Alcohol Route: Oral Frequency: Daily Amount used: [place]- 2 pints Age of first use: 40 Date of Last Use: 11/19/18 Family Disease History - Family Disease History Family History: Denies Admission Physical Exam S - Vital Signs Vital Signs: Vital Signs - 24 hr 11/19/18 20:15 Temperature 98.6 F Pulse Rate 60 Respiratory 18 Rate Blood Pressure 121/70 - Physical General Appearance: Yes: Moderate Distress, Alcohol on Breath, Tremorous, Sweating, Anxious HEENTM: Yes: Normal ENT Inspection, JOSE ROBERTO Respiratory: Yes: Lungs Clear, Normal Breath Sounds, No Respiratory Distress Neck: Yes: Supple Breast: Yes: Breast Exam Deferred Cardiology: Yes: Regular Rhythm, Regular Rate Abdominal: Yes: Normal Bowel Sounds, Soft Genitourinary: Yes: Within Normal Limits Back: Yes: Normal Inspection Musculoskeletal: Yes: Within Normal Limits Extremities: Yes: Tremors Neurological: Yes: carbon brusher assembler II-XII NML intact, Alert Integumentary: Yes: Normal Color Lymphatic: Yes: Within Normal Limits - Diagnostic (1) Alcohol dependence with uncomplicated withdrawal Current Visit: Yes Status: Chronic (2) Anemia Current Visit: Yes Status: Chronic Qualifiers: Anemia type: iron deficiency (3) Hepatitis C carrier Current Visit: Yes Status: Chronic (4) Human immunodeficiency virus infection Current Visit: Yes Status: Chronic (5) Nicotine dependence Current Visit: Yes Status: Chronic Qualifiers: Nicotine product type: cigarettes Substance use status: uncomplicated Qualified Code(s): F17.210 - Nicotine dependence, cigarettes, uncomplicated (6) Hep B w/o coma Current Visit: Yes Status: Chronic (7) Anxiety Current Visit: Yes Status: Chronic (8) Depression Current Visit: Yes Status: Chronic Qualifiers: Depression Type: unspecified Qualified Code(s): F32.9 - Major depressive disorder, single episode, unspecified Cleared for Admission [facility] - Detox or Rehab [facility] Level of Care: Medically Managed Detox Regimen/Protocol: Librium [facility] Breath Alcohol Content Breath Alcohol Content: 0 Urine Drug Screen - Results Drug Screen Negative: No Urine Drug Screen Results: DELL-Cocaine, OPI-Opiates, MTD-Methadone, FEN-Fentanyl Inpatient Rehab Admission - Rehab Decision to Admit Inpatient rehab admission?: No
[2018-11-20] MEDS ORDERED: chlordiazePOXIDE HCL 25 MG CAPSULE PO PRN (02:58)
[2018-11-20] MEDS ORDERED: MAG HYDROX/AL HYDROX/SIMETH 30 ML UNIT-DOSE CUP PO PRN (02:58)
[2018-11-20] MEDS ORDERED: hydrOXYzine PAMOATE 25 MG CAPSULE (FP) PO PRN (02:58)
[2018-11-20] MEDS ORDERED: MELATONIN 5 MG TABLETS PO PRN (02:58)
[2018-11-20] MEDS ORDERED: ACETAMINOPHEN 325 MG TABLET (FP) PO PRN ×2 (02:58)
[2018-11-20] MEDS ORDERED: METHOCARBAMOL 500 MG TABLET PO PRN (02:58)
[2018-11-20] MEDS ORDERED: MAGNESIUM CITRATE 300 ML BOTTLE PO PRN (02:58)
[2018-11-20] MEDS ORDERED: MAGNESIUM HYDROX 2400MG/30ML ORAL SUSPENSION 30 ML CUP PO PRN (02:58)
[2018-11-20] MEDS ORDERED: IBUPROFEN 400 MG TABLET (FP) PO PRN (02:58)
[2018-11-20] MEDS ORDERED: MENTHOL/PHENOL 1 EACH UD MM PRN (02:58)
[2018-11-20] MEDS: chlordiazePOXIDE HCL 25 MG CAPSULE PO SCH ×4 (05:08→22:12)
[2018-11-20] MEDS ORDERED: METHADONE HCL 40 MG DISPERSABLE TABLET PO ONE (10:00)
[2018-11-20] MEDS: PRENATAL VITAMINS W/ FOLIC ACID TABLET (FP) PO SCH (10:06)
[2018-11-20] MEDS: NICOTINE 14 MG/24 HOURS TOPICAL PATCH TD SCH (10:07)
[2018-11-20] MEDS: NICOTINE POLACRILEX 2 MG GUM BUC PRN (10:09)
--- NOTE | 2018-11-20 14:48 | PN ---
S CIWA - CIWA Score Nausea/Vomitin-Mild Nausea/No Vomiting Muscle Tremors: 3 Anxiety: 3 Agitation: 3 Paroxysmal Sweats: 1-Minimal Palms Moist Orientation: 1-Uncertain about Date Tacttile Disturbances: 0-None Auditory Disturbances: 0-None Visual Disturbances: 0-None Headache: 0-None Present CIWA-Ar Total Score: 12 BHS Progress Note (SOAP) Subjective: left inner ankle ulcerative would no exudates x 2-3 years hyperpigmentation noted mild swell around edge patient pain but sore when ambulating Objective: 11/20/18 14:48 Vital Signs Temperature 98.5 F 11/20/18 13:20 Pulse Rate 59 L 11/20/18 13:20 Respiratory Rate 18 11/20/18 13:20 Blood Pressure 123/66 11/20/18 13:20 O2 Sat by Pulse Oximetry (%) lab pending Assessment: 11/20/18 14:48 withdrawal sx Plan: continue detox
[2018-11-20] MEDS: BISMUTH SUBSALICYLATE 524 MG/30 ML UD PO PRN (15:42)
[2018-11-20] MEDS: THIAMINE HCL 100 MG TABLET (FP) PO SCH (22:12)
[2018-11-21] MEDS: METHADONE HCL 40 MG DISPERSABLE TABLET PO SCH (05:09)
[2018-11-21] MEDS: chlordiazePOXIDE HCL 25 MG CAPSULE PO SCH ×4 (05:09→22:56)
[2018-11-21] MEDS: PRENATAL VITAMINS W/ FOLIC ACID TABLET (FP) PO SCH (10:01)
[2018-11-21] MEDS: NICOTINE 14 MG/24 HOURS TOPICAL PATCH TD SCH (10:02)
[2018-11-21] MEDS: NICOTINE POLACRILEX 2 MG GUM BUC PRN (10:02)
[2018-11-21 12:41] LABS: HEMATOCRIT 35.4 % (35.4-49); HEMOGLOBIN 11.7 GM/dL (11.7-16.9); MCH 29.9 pg (25.7-33.7); MEAN CELL VOLUME 90.6 fl (80-96); MEAN PLT VOLUME 9.3 fl (7.5-11.1); PLATELET COUNT 137 K/MM3 (134-434); RBC 3.91 M/mm3 (4.00-5.60); RDW 13.8 % (11.9-15.9); WHITE BLOOD COUNT 2.8 K/mm3 (4.0-10.0)
[2018-11-21 13:15] LABS: ALBUMIN 3.6 g/dl (3.4-5.0); ALK PHOS 68 U/L (45-117); ANION GAP 5 MMOL/L (8-16); BILIRUBIN,TOTAL 0.4 mg/dL (0.2-1); BLOOD UREA NITROGEN 19 mg/dL (7-18); CALCIUM 8.5 mg/dL (8.5-10.1); CHLORIDE 108 mmol/L (98-107); CO2 26 mmol/L (21-32); GLUCOSE,RANDOM 87 mg/dL (74-106); POTASSIUM 4.1 mmol/L (3.5-5.1); SGOT/AST 23 U/L (15-37); SGPT/ALT 27 U/L (13-61); SODIUM 139 mmol/L (136-145); TOT PROT 8.2 g/dl (6.4-8.2)
--- NOTE | 2018-11-21 15:26 | PN ---
[facility] CIWA - CIWA Score Nausea/Vomitin-No Nausea/No Vomiting Muscle Tremors: 1-None Visible, but [place] Anxiety: 2 Agitation: 1-Slight > Activity Paroxysmal Sweats: 1-Minimal Palms Moist Orientation: 1-Uncertain about Date Tacttile Disturbances: 0-None Auditory Disturbances: 0-None Visual Disturbances: 0-None Headache: 1-Very Mild CIWA-Ar Total Score: 7 S Progress Note (SOAP) Subjective: left ankle dressing change daily scan light yellow secretion noted temp 97.6 observed patient changing dressing with good hand washing Objective: 11/21/18 15:27 Vital Signs Temperature 97.3 F L 11/21/18 13:48 Pulse Rate 52 L 11/21/18 13:48 Respiratory Rate 18 11/21/18 13:48 Blood Pressure 119/73 11/21/18 13:48 O2 Sat by Pulse Oximetry (%) Laboratory Last Values WBC 2.8 K/mm3 (4.0-10.0) L 11/21/18 07:30 RBC 3.91 M/mm3 (4.00-5.60) L 11/21/18 07:30 Hgb 11.7 GM/dL (11.7-16.9) 11/21/18 07:30 Hct 35.4 % (35.4-49) 11/21/18 07:30 MCV 90.6 fl (80-96) 11/21/18 07:30 MCH 29.9 pg (25.7-33.7) 11/21/18 07:30 MCHC 33.0 g/dl (32.0-35.9) 11/21/18 07:30 RDW 13.8 % (11.9-15.9) 11/21/18 07:30 Plt Count 137 K/MM3 (134-434) D 11/21/18 07:30 MPV 9.3 fl (7.5-11.1) 11/21/18 07:30 Sodium 139 mmol/L (136-145) 11/21/18 07:30 Potassium 4.1 mmol/L (3.5-5.1) 11/21/18 07:30 Chloride 108 mmol/L (98-107) H 11/21/18 07:30 Carbon Dioxide 26 mmol/L (21-32) 11/21/18 07:30 Anion Gap 5 MMOL/L (8-16) L 11/21/18 07:30 BUN 19 mg/dL (7-18) H 11/21/18 07:30 Creatinine 1.0 mg/dL (0.55-1.3) 11/21/18 07:30 Creat Clearance w eGFR 77.58 (>60) 11/21/18 07:30 Random Glucose 87 mg/dL (74-106) 11/21/18 07:30 Calcium 8.5 mg/dL (8.5-10.1) 11/21/18 07:30 Total Bilirubin 0.4 mg/dL (0.2-1) 11/21/18 07:30 AST 23 U/L (15-37) 11/21/18 07:30 ALT 27 U/L (13-61) 11/21/18 07:30 Alkaline Phosphatase 68 U/L (45-117) 11/21/18 07:30 Total Protein 8.2 g/dl (6.4-8.2) 11/21/18 07:30 Albumin 3.6 g/dl (3.4-5.0) 11/21/18 07:30 repeat cbc lab noted 11/21/18 15:32 Assessment: 11/21/18 15:32 withdrawal sx Plan: continue detox
[2018-11-21] MEDS: THIAMINE HCL 100 MG TABLET (FP) PO SCH (22:56)
[2018-11-22] MEDS ORDERED: chlordiazePOXIDE HCL 10 MG CAPSULE PO PRN (05:00)
[2018-11-22] MEDS: METHADONE HCL 40 MG DISPERSABLE TABLET PO SCH (05:21)
[2018-11-22] MEDS: chlordiazePOXIDE HCL 10 MG CAPSULE PO SCH ×4 (05:21→22:52)
[2018-11-22] MEDS: NICOTINE 14 MG/24 HOURS TOPICAL PATCH TD SCH (10:14)
[2018-11-22] MEDS: PRENATAL VITAMINS W/ FOLIC ACID TABLET (FP) PO SCH (10:14)
[2018-11-22] MEDS: NICOTINE POLACRILEX 2 MG GUM BUC PRN (10:16)
--- NOTE | 2018-11-22 11:32 | PN ---
S CIWA - CIWA Score Nausea/Vomitin-No Nausea/No Vomiting Muscle Tremors: 1-None Visible, but [place] Anxiety: 1-Mildly Anxious Agitation: 1-Slight > Activity Paroxysmal Sweats: No Perspiration Orientation: 0-Oriented Tacttile Disturbances: 0-None Auditory Disturbances: 0-None Visual Disturbances: 0-None Headache: 0-None Present CIWA-Ar Total Score: 3 BHS Progress Note (SOAP) Subjective: feeling better wants to return to infectious disease specialist for follow up Objective: 11/22/18 11:37 Vital Signs Temperature 97.7 F 11/22/18 09:09 Pulse Rate 90 11/22/18 09:09 Respiratory Rate 18 11/22/18 09:09 Blood Pressure 112/80 11/22/18 09:09 O2 Sat by Pulse Oximetry (%) Laboratory Last Values WBC 2.8 K/mm3 (4.0-10.0) L 11/21/18 07:30 RBC 3.91 M/mm3 (4.00-5.60) L 11/21/18 07:30 Hgb 11.7 GM/dL (11.7-16.9) 11/21/18 07:30 Hct 35.4 % (35.4-49) 11/21/18 07:30 MCV 90.6 fl (80-96) 11/21/18 07:30 MCH 29.9 pg (25.7-33.7) 11/21/18 07:30 MCHC 33.0 g/dl (32.0-35.9) 11/21/18 07:30 RDW 13.8 % (11.9-15.9) 11/21/18 07:30 Plt Count 137 K/MM3 (134-434) D 11/21/18 07:30 MPV 9.3 fl (7.5-11.1) 11/21/18 07:30 Sodium 139 mmol/L (136-145) 11/21/18 07:30 Potassium 4.1 mmol/L (3.5-5.1) 11/21/18 07:30 Chloride 108 mmol/L (98-107) H 11/21/18 07:30 Carbon Dioxide 26 mmol/L (21-32) 11/21/18 07:30 Anion Gap 5 MMOL/L (8-16) L 11/21/18 07:30 BUN 19 mg/dL (7-18) H 11/21/18 07:30 Creatinine 1.0 mg/dL (0.55-1.3) 11/21/18 07:30 Creat Clearance w eGFR 77.58 (>60) 11/21/18 07:30 Random Glucose 87 mg/dL (74-106) 11/21/18 07:30 Calcium 8.5 mg/dL (8.5-10.1) 11/21/18 07:30 Total Bilirubin 0.4 mg/dL (0.2-1) 11/21/18 07:30 AST 23 U/L (15-37) 11/21/18 07:30 ALT 27 U/L (13-61) 11/21/18 07:30 Alkaline Phosphatase 68 U/L (45-117) 11/21/18 07:30 Total Protein 8.2 g/dl (6.4-8.2) 11/21/18 07:30 Albumin 3.6 g/dl (3.4-5.0) 11/21/18 07:30 RPR Titer Nonreactive (NONREACTIVE) 11/21/18 07:30 lab noted Assessment: 11/22/18 11:37 mild withdrawal sx Plan: continue detox
[2018-11-22 11:57] LABS: BASO % 0.7 % (0-2.0); EOS % 3.4 % (0-4.5); HEMATOCRIT 35.5 % (35.4-49); HEMOGLOBIN 11.3 GM/dL (11.7-16.9); LYMPH % 42.1 % (8-40); MCH 28.5 pg (25.7-33.7); MCHC 31.9 g/dl (32.0-35.9); MEAN CELL VOLUME 89.5 fl (80-96); MEAN PLT VOLUME 9.7 fl (7.5-11.1); MONO % 15.1 % (3.8-10.2); NEUT % 38.7 % (42.8-82.8); PLATELET COUNT 130 K/MM3 (134-434); RBC 3.97 M/mm3 (4.00-5.60); RDW 13.6 % (11.9-15.9); WHITE BLOOD COUNT 2.8 K/mm3 (4.0-10.0)
[2018-11-22] MEDS: BISMUTH SUBSALICYLATE 524 MG/30 ML UD PO PRN (20:42)
[2018-11-22] MEDS: THIAMINE HCL 100 MG TABLET (FP) PO SCH (22:50)
[2018-11-23] MEDS: BISMUTH SUBSALICYLATE 524 MG/30 ML UD PO PRN ×2 (02:26→04:30)
[2018-11-23] MEDS: METHADONE HCL 40 MG DISPERSABLE TABLET PO SCH (05:27)
[2018-11-23] MEDS: chlordiazePOXIDE HCL 10 MG CAPSULE PO SCH ×2 (05:27→17:52)
[2018-11-23] MEDS: NICOTINE 14 MG/24 HOURS TOPICAL PATCH TD SCH (10:23)
[2018-11-23] MEDS: PRENATAL VITAMINS W/ FOLIC ACID TABLET (FP) PO SCH (10:23)
[2018-11-23] MEDS: NICOTINE POLACRILEX 2 MG GUM BUC PRN (10:24)
[2018-11-23] MEDS: CEPHALEXIN MONOHYDRATE 500 MG CAPSULE (UD) PO SCH ×3 (12:06→23:11)
[2018-11-23] MEDS: SILVER SULFADIAZINE 1% TOP CREAM 50 GM JAR TP SCH ×2 (12:57→22:16)
--- NOTE | 2018-11-23 17:24 | PN ---
S Progress Note (SOAP) Subjective: Anxious. Objective: PATIENT A & O X 3, OBSERVED AMBULATING ON UNIT. IN NO ACUTE DISTRESS. PATIENT REPORTS THAT HE HAD NOT TAKEN HIS PRESCRIBED MEDICATION FOR TREATMENT OF HIV FOR SEVERAL DAYS PRIOR TO ADMISSION TO DETOX UNIT. 11/23/18 17:19 Vital Signs Temperature 97.6 F 11/23/18 13:00 Pulse Rate 65 11/23/18 13:00 Respiratory Rate 20 11/23/18 13:00 Blood Pressure 119/69 11/23/18 13:00 O2 Sat by Pulse Oximetry (%) Laboratory Tests 11/21/18 11/21/18 11/21/18 07:30 07:30 07:30 WBC 2.8 L RBC 3.91 L Hgb 11.7 Hct 35.4 MCV 90.6 MCH 29.9 MCHC 33.0 RDW 13.8 Plt Count 137 D MPV 9.3 Absolute Neuts (auto) Neutrophils % Lymphocytes % Monocytes % Eosinophils % Basophils % Nucleated RBC % Sodium 139 Potassium 4.1 Chloride 108 H Carbon Dioxide 26 Anion Gap 5 L BUN 19 H Creatinine 1.0 Creat Clearance w eGFR 77.58 Random Glucose 87 Calcium 8.5 Total Bilirubin 0.4 AST 23 ALT 27 Alkaline Phosphatase 68 Total Protein 8.2 Albumin 3.6 RPR Titer Nonreactive 11/22/18 09:50 WBC 2.8 L RBC 3.97 L Hgb 11.3 L Hct 35.5 MCV 89.5 MCH 28.5 MCHC 31.9 L RDW 13.6 Plt Count 130 L MPV 9.7 Absolute Neuts (auto) 1.1 L Neutrophils % 38.7 L Lymphocytes % 42.1 H Monocytes % 15.1 H Eosinophils % 3.4 Basophils % 0.7 Nucleated RBC % 0 Sodium Potassium Chloride Carbon Dioxide Anion Gap BUN Creatinine Creat Clearance w eGFR Random Glucose Calcium Total Bilirubin AST ALT Alkaline Phosphatase Total Protein Albumin RPR Titer LABS NOTED. ULCER NOTED ON LOWER PART OF LEFT LEG (MEDIAL ASPECT). ULCER IS APPROX. 1 INCH IN DIAMETER. NO DISCHARGE NOTED AT WOUND SITE. SWELLING AND ERYTHEMA NOTED IN LOWER PORTION OF LEFT LEG AND IN LEFT FOOT. PATIENT REPORTS THAT HE HAS HAD THIS WOUND FOR SEVERAL MONTHS AND THAT HE BELIEVES THAT IT STARTED OUT A "BUG BITE" OF SOME KIND. PATIENT REPORTS THAT HE HAS HAD WOUND TREATED IN PAST. 11/23/18 17:20 11/23/18 17:24 Assessment: 11/23/18 17:19 WITHDRAWAL SYMPTOMS. ULCER OF LEFT LEG. CELLULITIS OF LEFT LOWER LEG. 11/23/18 17:19 Plan: CONTINUE DETOX. KEFLEX, 500 MG PO QID FOR CELLULITIS OF LEFT LOWER LEG AND FOOT. ULCER ON LEFT LOWER LEG TO BE CLEANED BID WITH NORMAL SALINE AND THEN APPLY SILVADENE CREAM AND COVER WITH GAUZE. PATIENT ADVISED TO FOLLOW-UP WITH DOUBLE END TENONER SETTER WHEN POSSIBLE AFTER DISCHARGE FROM DETOX UNIT FOR FURTHER EVALUATION OF ULCER ON LEFT LEG. PATIENT VERBALIZED UNDERSTANDING OF RECOMMENDATION. PATIENT SCHEDULED FOR D/C TOMORROW. PATIENT LIKELY TO GO TO [facility] FOR AFTERCARE. FOLLOW-UP PRESCRIPTIONS FOR KELFLEX AND FOR SILVADENE CREAM (AND RELATED WOUND CARE SUPPLIES) FOR FOLLOW-UP CARE OF WOUND ON LEFT LOWER LEG AND CELLULITIS OF LEFT LOWER LEG AND FOOT SENT TO [facility] ([place], [place]) FOR PATIENT TO RAILROAD TRACK REPAIR SUPERVISOR FOR FOLLOW-UP AFTERCARE. PATIENT ADVISED TO RAILROAD TRACK REPAIR SUPERVISOR MEDICATIONS PRIOR TO LEAVING BUILDING AND TO COMPLETE FULL COURSE OF KEFLEX AFTER DISCHARGE FROM DETOX. PATIENT VERBALIZED UNDERSTANDING OF ALL RECOMMENDATIONS.
[2018-11-23] MEDS: THIAMINE HCL 100 MG TABLET (FP) PO SCH (22:15)
[2018-11-24] MEDS: BISMUTH SUBSALICYLATE 524 MG/30 ML UD PO PRN (03:08)
[2018-11-24] MEDS: METHADONE HCL 40 MG DISPERSABLE TABLET PO SCH (05:32)
[2018-11-24] MEDS: chlordiazePOXIDE HCL 10 MG CAPSULE PO SCH (05:32)
[2018-11-24] MEDS: CEPHALEXIN MONOHYDRATE 500 MG CAPSULE (UD) PO SCH (05:32)
[2018-11-24 06:07] VITALS: BP 144/94; PULSE 74; TEMP 96.7
--- NOTE | 2018-11-24 14:49 | DS ---
[facility] Detox Discharge Summary Admission Date: 11/20/18 Discharge Date: 11/24/18 - History Additional Comments: Pt A & O X3, d/c due to completed detox. In stable condition and verbalized no complaints. Gait steady, no acute distress noted. Vital Signs Temperature 96.7 F L 11/24/18 06:07 Pulse Rate 74 11/24/18 06:07 Respiratory Rate 18 11/24/18 06:07 Blood Pressure 144/94 11/24/18 06:07 O2 Sat by Pulse Oximetry (%) Pt states he will be going to [facility] for rehab. He verbalized knowing that his precription antibiotics has been sent to [place] pharmacy and that he will pick it up prior to leaving for home?[facility]. Pt also verbalized that he will f/u with PCP regarding his HIV status. Pt was stable. - Physical Exam Results Vital Signs: Vital Signs Temperature 96.7 F L 11/24/18 06:07 Pulse Rate 74 11/24/18 06:07 Respiratory Rate 18 11/24/18 06:07 Blood Pressure 144/94 11/24/18 06:07 O2 Sat by Pulse Oximetry (%) - Treatment Hospital Course: Detox Protocol Followed, Detoxed Safely, Responded well, Discharged Condition Good, Rehab Referral Accepted Patient has Accepted a Rehab Referral to: [facility] - Medication Discharge Medications: Ambulatory Orders Dolutegravir Sodium [Tivicay] 50 mg PO DAILY 07/27/18 Emtricitabine/Tenofov Alafenam [Descovy 200-25 mg Tablet (Nf)] 1 each PO DAILY 07/27/18 Cephalexin [Keflex] 500 mg PO QID 7 Days #28 capsule 11/23/18 Gauze Bandage [Bandage Roll] 1 each TP BID #10 bandage 11/23/18 Gauze Bandage [Gauze Pads] 1 each TP BID #1 box 11/23/18 Silver Sulfadiazine [Silvadene] 20 gm TP BID #1 cream..g. 11/23/18 - AMA Did Patient Leave Against Medical Advice: No
== END 2018-11-24 08:55 | disposition home or self-care (01) | DRG 775 ==
LOC: YASAS 18:14 → Y3N 11-20 01:07
PROVIDERS: ADMIT Surgery; ATTEND Surgery
PROC: HZ2ZZZZ Detoxification Services for Substance Abuse Treatment (ICD-10-PCS; principal; 2018-11-20)
DX: F10.230 Alcohol dependence with withdrawal, uncomplicated (principal); F17.210 Nicotine dependence, cigarettes, uncomplicated; F41.8 Other specified anxiety disorders; F32.9 Major depressive disorder, single episode, unspecified; Z21 Asymptomatic human immunodeficiency virus [HIV] infection status; D50.9 Iron deficiency anemia, unspecified; B19.10 Unspecified viral hepatitis B without hepatic coma; B19.20 Unspecified viral hepatitis C without hepatic coma; I10 Essential (primary) hypertension; L03.116 Cellulitis of left lower limb; L97.821 Non-pressure chronic ulcer of other part of left lower leg limited to breakdown of skin
CPT/HCPCS: 36415; 80053; 85025; 85027; 86593

== ENCOUNTER 2019-10-09 10:04 | Inpatient (IN) | payer OTHER ==
--- NOTE | 2019-10-09 10:14 | BHS.RME ---
Substance Use & Tx History - Substance Use History Alcohol Substance amount: 1 pack beers per day and 1 pint of [place] Frequency of use: Daily Substance route: Oral Date of Last Use: 10/09/19 Opiates (Heroin) Substance amount: 3 bags Frequency of use: Daily Substance route: Injection (ex: intravenous or skin popping) Date of Last Use: 10/08/19 - Last Treatment Date of last treatment: 11/20/18-11/24/2018 Treatment type: Substance Use Disorder (NGOC) Where was last treatment: Detox Physical/Psych/Mental Status - Behavior General Behavior: Increased activity (restlessness, agitation) Eye Contact: Normal - Cooperativeness Cooperativeness: Cooperative - Thinking Thought Processes: Tight, Logical, Goal Directed Thought content: Future oriented - Physical Health Problems Is patient presently having any pain?: No Does patient presently have any injuries (include location): No Does patient currently have a fever: No Is patient : No COWS - Scale Goose Flesh Skin: 0=Smooth Skin CIWA Nausea/Vomitin Muscle Tremors: 2 Anxiety: 2 Agitation: 3 Paroxysmal Sweats: 1-Minimal Palms Moist Orientation: 0-Oriented Tacttile Disturbances: 0-None Auditory Disturbances: 0-None Visual Disturbances: 0-None Headache: 2-Mild CIWA-Ar Total Score: 12
--- NOTE | 2019-10-09 10:56 | HP ---
COWS - Scale Sweatin= Chills/Flushing Restless Observation: 1= Difficult to Sit Still Pupil Size: 1= Pupils >than Normal Bone or Joint Aches: 1= Mild Discomfort Goose Flesh Skin: 0=Smooth Skin CIWA Score Nausea/Vomitin Muscle Tremors: 2 Anxiety: 2 Agitation: 3 Paroxysmal Sweats: 1-Minimal Palms Moist Orientation: 0-Oriented Tacttile Disturbances: 0-None Auditory Disturbances: 0-None Visual Disturbances: 0-None Headache: 2-Mild CIWA-Ar Total Score: 12 - Admission Criteria OASAS Guidelines: Admission for Medically Managed Detox: Requires at least one of the followin. CIWA greater than 12 2. Seizures within the past 24 hours 3. Delirium tremens within the past 24 hours 4. Hallucinations within the past 24 hours 5. Acute intervention needed for co occurring medical disorder 6. Acute intervention needed for co occurring psychiatric disorder 7. Severe withdrawal that cannot be handled at a lower level of care (continued vomiting, continued diarrhea, abnormal vital signs) requiring intravenous medication and/or fluids 8. Admitting History and Physical - Admission Chief Complaint: I. " I want to stop drinking." History of Present Illness: 54 year old male with history ofHIV, HCV, HepB, Depression, Anemia and Anxiety disorder He is seeking admission for detox from alcohol. He is drinking 1 pint of vodka daily last drank this morning 7AM. History Source: Patient Limitations to Obtaining History: No Limitations - Past Medical History Cardiovascular: Yes: HTN Infectious Disease: Yes: HIV - Past Surgical History Past Surgical History: Yes: None - Smoking History Smoking history: Current every day smoker Have you smoked in the past 12 months: Yes Aproximately how many cigarettes per day: 10 - Alcohol/Substance Use Hx Alcohol Use: Yes Admission ROS [facility] Allergies/Adverse Reactions: Allergies Allergy/AdvReac Type Severity Reaction Status Date / Time shellfish derived Allergy Severe Hives Verified 11/20/18 04:03 No Known Drug Allergies Allergy Verified 11/20/18 04:03 Exam Limitations: No Limitations - Ebola screening Have you traveled outside of the country in the last 21 days: No Have you had contact with anyone from an Ebola affected area: No Have you been sick,other than usual withdrawal symptoms: No Do you have a fever: No Patient History - Patient Medical History Hx Anemia: No Hx Asthma: No Hx Chronic Obstructive Pulmonary Disease (COPD): No Hx Cancer: No Hx Cardiac Disorders: No Hx Congestive Heart Failure: No Hx Hypertension: Yes Hx Hypercholesterolemia: No Hx Pacemaker: No HX Cerebrovascular Accident: No Hx Seizures: No Hx Dementia: No Hx Diabetes: No Hx Gastrointestinal Disorders: No Hx Liver Disease: No Hx Genitourinary Disorders: No Hx Sexually Transmitted Disorders: No Hx Renal Disease (ESRD): No Hx Thyroid Disease: No Hx Human Immunodeficiency Virus (HIV): Yes (since 1982) Hx Hepatitis C: Yes (Not on medication) Hx Depression: Yes (Not on mjedication) Hx Suicide Attempt: Yes (hanged self with a rope at age 24) Hx Schizophrenia: No - Patient Surgical History Past Surgical History: No Hx Neurologic Surgery: No Hx Cataract Extraction: No Hx Cardiac Surgery: No Hx Lung Surgery: No Hx Breast Surgery: No Hx Breast Biopsy: No Hx Abdominal Surgery: No Hx Appendectomy: No Hx Cholecystectomy: No Hx Genitourinary Surgery: No Hx Section: No Hx Orthopedic Surgery: No Anesthesia Reaction: No - PPD History Date: 11/19/18 Results: 0 mm PPD to be Administered?: No - Smoking Cessation Smoking history: Current every day smoker Have you smoked in the past 12 months: Yes Aproximately how many cigarettes per day: 10 Hx Chewing Tobacco Use: No Initiated information on smoking cessation: Yes 'Breaking Loose' booklet given: 10/09/19 - Substances abused Alcohol Substance route: Oral Frequency: Daily Amount used: 1 pint vodka Age of first use: 15 Date of last use: 10/09/19 Admission Physical Exam [facility] - Physical General Appearance: Yes: No Apparent Distress, Nourished, Appropriately Dressed HEENTM: Yes: EOMI, Hearing grossly Normal, Normal ENT Inspection, Normocephalic , Normal Voice, JOSE ROBERTO, Pharynx Normal, Tm's normal Respiratory: Yes: Chest Non-Tender, Lungs Clear, Normal Breath Sounds, No Respiratory Distress, No Accessory Muscle Use Neck: Yes: No masses,lesions,Nodules, Supple, Trachea in good position Breast: Yes: Within Normal Limits Cardiology: Yes: Regular Rhythm, Regular Rate, S1, S2 Abdominal: Yes: Normal Bowel Sounds, Non Tender, Flat, Soft Genitourinary: Yes: Within Normal Limits Back: Yes: Normal Inspection Musculoskeletal: Yes: full range of Motion, Gait Steady, Pelvis Stable Extremities: Yes: Normal Capillary Refill, Normal Inspection, Normal Range of Motion, Non-Tender, Other (ulcer left leg) Neurological: Yes: leather scrubber II-XII NML intact, Fully Oriented, Alert, Motor Strength 5/5, Normal Mood/Affect, Normal Response Integumentary: Yes: Normal Color, Warm Lymphatic: Yes: Within Normal Limits - Diagnostic (1) Cellulitis of left lower leg Current Visit: Yes Status: Acute (2) Chronic ulcer of ankle Current Visit: Yes Status: Acute Qualifiers: Laterality: left Non-pressure ulcer stage: limited to breakdown of skin Qualified Code(s): L97.321 - Non-pressure chronic ulcer of left ankle limited to breakdown of skin (3) Alcohol dependence with uncomplicated withdrawal Current Visit: Yes Status: Chronic (4) Anemia Current Visit: Yes Status: Chronic Qualifiers: Anemia type: iron deficiency (5) Anxiety Current Visit: Yes Status: Chronic (6) Bipolar disorder Current Visit: Yes Status: Chronic (7) Depression Current Visit: Yes Status: Chronic Qualifiers: Depression Type: unspecified Qualified Code(s): F32.9 - Major depressive disorder, single episode, unspecified (8) Hep B w/o coma Current Visit: Yes Status: Chronic (9) Hepatitis C carrier Current Visit: Yes Status: Chronic (10) Human immunodeficiency virus infection Current Visit: Yes Status: Chronic (11) Nicotine dependence Current Visit: Yes Status: Chronic Qualifiers: Nicotine product type: cigarettes Substance use status: uncomplicated Qualified Code(s): F17.210 - Nicotine dependence, cigarettes, uncomplicated (12) Non-compliant patient Current Visit: Yes Status: Chronic (13) Opioid dependence on agonist therapy Current Visit: Yes Status: Chronic Screened but not Admitted - Documentation of Visit Screened but not Admitted: No Urine Drug Screen - Control Is test valid?: Yes Inpatient Rehab Admission - Rehab Decision to Admit Inpatient rehab admission?: No
[2019-10-09] MEDS ORDERED: METHOCARBAMOL 500 MG TABLET PO PRN (11:37)
[2019-10-09] MEDS ORDERED: BISMUTH SUBSALICYLATE 262 MG/15 ML BTL PO PRN (11:37)
[2019-10-09] MEDS ORDERED: LORazepam 1 MG TABLET PO PRN (11:37)
[2019-10-09] MEDS ORDERED: ACETAMINOPHEN 325 MG TABLET (FP) PO PRN ×2 (11:37)
[2019-10-09] MEDS ORDERED: MAGNESIUM HYDROX 2400MG/30ML ORAL SUSPENSION 30 ML CUP PO PRN (11:37)
[2019-10-09] MEDS ORDERED: MENTHOL/PHENOL 1 EACH UD MM PRN (11:37)
[2019-10-09] MEDS ORDERED: MAG HYDROX/AL HYDROX/SIMETH 30 ML UNIT-DOSE CUP PO PRN (11:37)
[2019-10-09] MEDS ORDERED: MELATONIN 5 MG TABLETS PO PRN (11:37)
[2019-10-09] MEDS ORDERED: MAGNESIUM CITRATE 300 ML BOTTLE PO PRN (11:37)
[2019-10-09] MEDS ORDERED: IBUPROFEN 400 MG TABLET (FP) PO PRN (11:37)
[2019-10-09] MEDS ORDERED: hydrOXYzine PAMOATE 25 MG CAPSULE (FP) PO PRN (11:37)
[2019-10-09 12:01] VITALS: BMI 21.9
[2019-10-09] MEDS: SULFAMETHOXAZOLE/TRIMETHOPRIM 800MG/160MG D.S. TABLET PO SCH ×2 (13:49→22:08)
[2019-10-09] MEDS: LORazepam 2 MG TABLET PO SCH ×3 (13:49→22:08)
[2019-10-09] MEDS: NICOTINE 14 MG/24 HOURS TOPICAL PATCH TD SCH (13:50)
--- NOTE | 2019-10-09 13:51 | PN ---
[facility] Progress Note Note: 54 years old male reports traumatized left index finger "few days ago" left index finger limited range of motion swelling pain and poor capillary refill left index finger x ray ordered
[2019-10-09] MEDS: SILVER SULFADIAZINE 1% TOP CREAM 50 GM JAR TP SCH ×2 (15:41→22:08)
[2019-10-09] MEDS: EMTRICITABINE/TENOFOV ALAFENAM (DESCOVY) TABLET PO SCH (15:42)
[2019-10-09] MEDS: DOLUTEGRAVIR SODIUM 50 MG TABLET (NON-FORMULARY) PO SCH (15:43)
[2019-10-09 16:05] LABS: HEMOGLOBIN 10.5 GM/dL (11.7-16.9); MCH 27.5 pg (25.7-33.7); MCHC 33.9 g/dl (32.0-35.9); MEAN CELL VOLUME 81.1 fl (80-96); MEAN PLT VOLUME 8.8 fl (7.5-11.1); PLATELET COUNT 158 K/MM3 (134-434); RBC 3.82 M/mm3 (4.00-5.60); RDW 14.7 % (11.9-15.9); WHITE BLOOD COUNT 6.6 K/mm3 (4.0-10.0)
[2019-10-09 16:08] LABS: ALBUMIN 3.2 g/dl (3.4-5.0); BILIRUBIN,TOTAL 0.4 mg/dL (0.2-1); BLOOD UREA NITROGEN 39.1 mg/dL (7-18); CALCIUM 8.5 mg/dL (8.5-10.1); CREATININE 1.8 mg/dL (0.55-1.3); POTASSIUM 4.3 mmol/L (3.5-5.1)
[2019-10-09] MEDS ORDERED: THIAMINE HCL 100 MG TABLET (FP) PO SCH (22:00)
[2019-10-10] MEDS ORDERED: METHADONE HCL 10 MG TABLET ONE (04:57)
[2019-10-10] MEDS ORDERED: METHADONE HCL 40 MG DISPERSABLE TABLET ONE (04:57)
[2019-10-10] MEDS: LORazepam 2 MG TABLET PO SCH ×3 (05:10→18:00)
[2019-10-10] MEDS ORDERED: METHADONE HCL 10 MG TABLET PO SCH (06:00)
[2019-10-10] MEDS ORDERED: METHADONE 120 MG, METHADONE 20 MG PO SCH (06:00)
--- NOTE | 2019-10-10 07:22 | PN ---
[facility] Progress Note Note: seen for fever over night. PATIENT REPORTS COUGH X5 DAYS. DENIES HOMELESSNESS, LONGTERM, SICK CONTACTYS, N/V/D, SOB, C.P. Vital Signs - 24 hr 10/09/19 10/09/19 10/09/19 11:53 13:23 17:18 Temperature 100.4 F H 98.6 F 102.4 F H Pulse Rate 91 H 91 H 91 H Respiratory 18 18 18 Rate Blood Pressure 144/77 127/71 137/77 10/09/19 10/10/19 20:17 06:24 Temperature 97.9 F 99.4 F Pulse Rate 84 85 Respiratory 18 18 Rate Blood Pressure 104/64 130/79 Laboratory Tests 10/09/19 10/09/19 12:00 12:00 WBC 6.6 RBC 3.82 L Hgb 10.5 L Hct 31.0 L MCV 81.1 MCH 27.5 MCHC 33.9 RDW 14.7 Plt Count 158 D MPV 8.8 Sodium 132 L Potassium 4.3 Chloride 97 L Carbon Dioxide 29 Anion Gap 6 L BUN 39.1 H Creatinine 1.8 H Est GFR (CKD-EPI)AfAm 47.70 Est GFR (CKD-EPI)NonAf 41.16 Random Glucose 86 Calcium 8.5 Total Bilirubin 0.4 AST 22 ALT 17 Alkaline Phosphatase 104 Total Protein 9.0 H Albumin 3.2 L CLIENT SEEN LYING IN BED NAD, A/O X3. C/O CHILLS AND FEVER HEENT- NCAT PERRLA CV- RRR LUNGS- DECREASED BREATH SOUNDS, + WET COUGH NOTED/ 02 SAT96 RA SKIN- WARM/ MOIST. LLE NOT WITH VASCULAR CHANGES WITH HYPOPIGMENTATION AND ULCER ABOVE THE INNER ANKLE. CYANOTIC LIKE TISSUE NOTED. NO DRAINAGE, ODUR OR S/ SX OF INFECTION. GOOD PEDAL PULSE NOTED. A-54 Y.O. MALE WITH HX/O HIV HCV, LLE ULCER, HepB, Depression, Anemia and Anxiety disorder ON MMTP/ATIVAN TAPER,ADMITTED FOR ALCOHOL DETOX NOW WITH FEVER AND PRODUCTIVE COUGH . P- TYLENOL TRANSFER TO [facility] FOR CXR CONTINUE TO MONITOR CLINICALLY
[2019-10-10 08:04] VITALS: BP 112/67; PULSE 75; TEMP 100.7
[2019-10-10] MEDS ORDERED: PRENATAL VITAMINS W/ FOLIC ACID TABLET (FP) PO SCH (10:00)
--- NOTE | 2019-10-10 10:31 | PN ---
[facility] Progress Note Note: 54 years old male admitted on 10/09/19 for alcohol withdrawal sx management treating with ativan detox regiment ER chest x ray due to HIV with low grade fever, coughing, disorientation received ativan 2 mg and methadone 140mg today prior to ER x ray
[2019-10-10] MEDS: SULFAMETHOXAZOLE/TRIMETHOPRIM 800MG/160MG D.S. TABLET PO SCH (11:07)
[2019-10-10] MEDS: NICOTINE 14 MG/24 HOURS TOPICAL PATCH TD SCH (11:07)
[2019-10-10] MEDS: EMTRICITABINE/TENOFOV ALAFENAM (DESCOVY) TABLET PO SCH (11:07)
[2019-10-10] MEDS: DOLUTEGRAVIR SODIUM 50 MG TABLET (NON-FORMULARY) PO SCH (11:08)
[2019-10-10] MEDS: SILVER SULFADIAZINE 1% TOP CREAM 50 GM JAR TP SCH (11:08)
--- NOTE | 2019-10-10 15:29 | CONSULT ---
[facility] Psychiatric Consult - Data Date of interview: 10/10/19 Admission source: [facility] Identifying data: Ham Sawyer has attempted to speak to patient several times but he remains at [facility] ER receiving treatment. As per staff he was transferred to [facility] to obtain a chest X-ray. Please re order psychiatric consultation if requested by patient.
[2019-10-11] MEDS ORDERED: LORazepam 1 MG TABLET PO SCH (05:00)
--- NOTE | 2019-10-11 08:02 | CONSULT ---
Consult Detox [facility] Reason for Current Admission/Consult: for alcoholand substance abused evaluation Referred by:: shelby Vázquez - History History of Present Illness: this 54 years old male with alcohol dependence,horacio abused,mmtp,hiv,hepatitis c was admitted at [facility] from 10/09/2019 to 10/10/2019,patient was transferred to [facility] er for evaluation of fever,coughing,r/o sepsis, was admitted patient also found to be drowsy with alter metal status patient has multiple admissions in detox,last [facility] 11/20/18 to 11/24/18 no seizure denied psychiatric problem patient was seen at bedside has been placed on ativan regimen detox and on iv antibiotics unable to give history at this presence time history from SIMON MORRISSEY record patient drink daily 1 pint of vodka stated at age of 10 years last drink 2019 on methadone 140 mgs/day,verified by SIMON Martinez last medicated 10/09/2019 - History Source History Provided By: Medical Record Limitations to Obtaining History: Other (alter mental status) - Alcohol/Substance Use Hx Alcohol Use: Yes - Past Medical History Cardio/Vascular: Yes: HTN Infectious Disease: Yes: HIV - Past Surgical History Past Surgical History: Yes: None CIWA Score - CIWA Score Nausea/Vomitin Muscle Tremors: 2 Anxiety: 2 Agitation: 3 Paroxysmal Sweats: 1-Minimal Palms Moist Orientation: 0-Oriented Tacttile Disturbances: 0-None Auditory Disturbances: 0-None Visual Disturbances: 0-None Headache: 2-Mild CIWA-Ar Total Score: 12 COWS - Scale Sweatin= Chills/Flushing Restless Observation: 1= Difficult to Sit Still Pupil Size: 1= Pupils >than Normal Bone or Joint Aches: 1= Mild Discomfort Goose Flesh Skin: 0=Smooth Skin Assessment Plan - Diagnosis (1) Hepatitis C Status: Acute (2) Alcohol dependence with uncomplicated withdrawal Status: Chronic (3) Human immunodeficiency virus infection Status: Chronic (4) Weight decreased Status: Chronic (5) Opioid dependence on agonist therapy Status: Chronic (6) Altered mental status Status: Acute (7) Febrile Status: Acute - Plan Plan: patient has been place on ativan regimen,should continue that with alter mental status should reduce methadone to 70 mgs/day with close monitoring on mental status and vital signs thanks you for your consultation
[2019-10-11] MEDS ORDERED: METHADONE HCL 10 MG TABLET PO ONE (08:36)
[2019-10-12] MEDS ORDERED: LORazepam 0.5 MG TABLET PO PRN
[2019-10-12] MEDS ORDERED: LORazepam 0.5 MG TABLET PO SCH (05:00)
[2019-10-12] MEDS ORDERED: METHADONE HCL 10 MG TABLET PO SCH (06:00)
[2019-10-13] MEDS ORDERED: LORazepam 0.5 MG TABLET PO ONE (05:00)
== END 2019-10-10 20:02 | disposition short-term general hospital (02) | DRG 773 ==
LOC: YASAS 10:04 → Y3N 12:24
PROVIDERS: ADMIT Allergy & Immunology; ATTEND Allergy & Immunology
PROC: HZ2ZZZZ Detoxification Services for Substance Abuse Treatment (ICD-10-PCS; principal; 2019-10-09)
DX: F10.230 Alcohol dependence with withdrawal, uncomplicated (principal); F11.20 Opioid dependence, uncomplicated; F17.210 Nicotine dependence, cigarettes, uncomplicated; F31.9 Bipolar disorder, unspecified; F41.9 Anxiety disorder, unspecified; Z21 Asymptomatic human immunodeficiency virus [HIV] infection status; D50.9 Iron deficiency anemia, unspecified; I10 Essential (primary) hypertension; B18.2 Chronic viral hepatitis C; B19.10 Unspecified viral hepatitis B without hepatic coma; L03.116 Cellulitis of left lower limb; L97.321 Non-pressure chronic ulcer of left ankle limited to breakdown of skin; R63.4 Abnormal weight loss; Z68.21 Body mass index [BMI] 21.0-21.9, adult; R50.9 Fever, unspecified; R41.82 Altered mental status, unspecified; Z91.013 Allergy to seafood
CPT/HCPCS: 36415; 73140-TC-LT-FY; 80053; 85027; 86593

== ENCOUNTER 2019-10-10 08:53 | Inpatient (IN) | payer OTHER ==
--- NOTE | 2019-10-10 09:08 | PDOC ---
History of Present Illness - General Chief Complaint: Respiratory Stated Complaint: COUGHING Time Seen by Provider: 10/10/19 09:05 History Source: Patient Exam Limitations: No Limitations Past History - Travel Traveled outside of the country in the last 30 days: No Close contact w/someone who was outside of country & ill: No - Past Medical History Allergies/Adverse Reactions: Allergies Allergy/AdvReac Type Severity Reaction Status Date / Time shellfish derived Allergy Severe Hives Verified 10/09/19 11:51 No Known Drug Allergies Allergy Verified 10/09/19 11:51 Home Medications: Ambulatory Orders Dolutegravir Sodium [Tivicay] 50 mg PO DAILY 07/27/18 Emtricitabine/Tenofov Alafenam [Descovy 200-25 mg Tablet (Nf)] 1 each PO DAILY 07/27/18 Silver Sulfadiazine [Silvadene] 20 gm TP BID #1 cream..g. 11/23/18 Anemia: No Asthma: No Cancer: No Cardiac Disorders: No CVA: No COPD: No CHF: No Dementia: No Diabetes: No GI Disorders: No Disorders: No HTN: No Hypercholesterolemia: No Kidney Stones: No Liver Disease: No Seizures: No Thyroid Disease: No - Surgical History Abdominal Surgery: No Appendectomy: No Cardiac Surgery: No Cholecystectomy: No Lung Surgery: No Neurologic Surgery: No Orthopedic Surgery: No - Reproductive History Testicular Surgery: No - Psycho Social/Smoking Cessation Hx Smoking History: Current every day smoker Have you smoked in the past 12 months: Yes Number of Cigarettes Smoked Daily: 10 Information on smoking cessation initiated: No 'Breaking Loose' booklet given: 10/09/19 Hx Alcohol Use: Yes Drug/Substance Use Hx: Yes Substance Use Type: Alcohol, Cocaine, Heroin, Opiates Hx Substance Use Treatment: Yes Review of Systems - Review of Systems Able to Perform ROS?: No (Somnolent) Is the patient limited [place] Island[place] proficient: No *Physical Exam - Vital Signs Last Vital Signs Temp Pulse Resp BP Pulse Ox 99.1 F 80 15 98/57 L 99 10/10/19 08:54 10/10/19 08:54 10/10/19 08:54 10/10/19 08:54 10/10/19 08:57 - Physical Exam 10/10/19 09:06 GENERAL: Well developed, well nourished. Somnolent. HEENT: Normocephalic, atraumatic. (+) pinpoint pupils. EOMI. No conjunctival pallor. Sclera are non-icteric. Moist mucous membranes. CARDIOVASCULAR: Regular rate and rhythm. No murmurs, rubs, or gallops. Distal pulses are 2+ and symmetric. PULMONARY: Lungs clear to auscultation bilaterally. No wheezing, rales or rhonchi. SKIN: Warm and dry. Normal capillary refill. No rashes. No jaundice. NEUROLOGICAL: Solmnolent, unable to assess. ED Treatment Course - LABORATORY CBC & Chemistry Diagram: 10/10/19 09:25 10/10/19 09:25 Medical Decision Making - Medical Decision Making 10/10/19 09:21 The patient is a 54-year-old male past medical history HIV, hep C, alcohol dependence currently in detox, heroin use presents to the ER today for fever and cough. He is unsure why is he is here. He is very somnolent in the exam room and cannot answer questions. He states they gave him Ativan this morning. A/P: Hypoxia Vital signs from triage show an O2 sat of 92, this is confirmed within the [facility] room. Patient is somnolent. Need to keep orienting him and waking him up to answer questions. Overdose? Lungs sound relatively clear, patient reportedly here for fever with cough. We will transfer patient to the main ED for work-up and observation. Case discussed with Dr. Winkler and Neli Discharge - Discharge Information Problems reviewed: Yes Clinical Impression/Diagnosis: Acute respiratory failure Qualifiers: Respiratory failure complication: hypoxia Qualified Code(s): J96.01 - Acute respiratory failure with hypoxia Opioid overdose Qualifiers: Encounter type: initial encounter Injury intent: undetermined intent Qualified Code(s): T40.2X4A - Poisoning by other opioids, undetermined, initial encounter Condition: Improved - Follow up/Referral - Patient Discharge Instructions - Post Discharge Activity
[2019-10-10] MEDS ORDERED: SODIUM CHLORIDE IV ONE (09:46)
--- NOTE | 2019-10-10 09:50 | PDOC ---
History of Present Illness - General Chief Complaint: Respiratory Stated Complaint: COUGHING Time Seen by Provider: 10/10/19 09:05 History Source: Patient Exam Limitations: No Limitations - History of Present Illness Initial Comments: 10/10/19 09:52 54yM w PMHx HIV (non compliant), HepB HepC, Bipolar, Depression, substance abuse (heroin, alcohol) presenting from [facility] w non productive cough x6d, lethargy, fever (101). Was given ativan this morning. Denies chest pain, SOB, nausea/vomiting, ABD pain, urinary/bowel mvmt changes. Admitted to [facility] detox yesterday for alcohol and heroin use. Has chronic L ankle ulcer Past History - Past Medical History Allergies/Adverse Reactions: Allergies Allergy/AdvReac Type Severity Reaction Status Date / Time shellfish derived Allergy Severe Hives Verified 10/09/19 11:51 No Known Drug Allergies Allergy Verified 10/09/19 11:51 Home Medications: Ambulatory Orders Dolutegravir Sodium [Tivicay] 50 mg PO DAILY 07/27/18 Emtricitabine/Tenofov Alafenam [Descovy 200-25 mg Tablet (Nf)] 1 each PO DAILY 07/27/18 Silver Sulfadiazine [Silvadene] 20 gm TP BID #1 cream..g. 11/23/18 Anemia: No Asthma: No Cancer: No Cardiac Disorders: No CVA: No COPD: No CHF: No Dementia: No Diabetes: No GI Disorders: No Disorders: No HTN: No Hypercholesterolemia: No Kidney Stones: No Liver Disease: No Seizures: No Thyroid Disease: No - Surgical History Abdominal Surgery: No Appendectomy: No Cardiac Surgery: No Cholecystectomy: No Lung Surgery: No Neurologic Surgery: No Orthopedic Surgery: No - Reproductive History Testicular Surgery: No - Psycho Social/Smoking Cessation Hx Smoking History: Current every day smoker Have you smoked in the past 12 months: Yes Number of Cigarettes Smoked Daily: 10 Information on smoking cessation initiated: No 'Breaking Loose' booklet given: 10/09/19 Hx Alcohol Use: Yes Drug/Substance Use Hx: Yes Substance Use Type: Alcohol, Cocaine, Heroin, Opiates Hx Substance Use Treatment: Yes Review of Systems - Review of Systems Is the patient limited [place] proficient: No Constitutional: No: Chills, Fever HEENTM: No: Eye Pain, Nose Pain Respiratory: Yes: Cough. No: Shortness of Breath Cardiac (ROS): No: Chest Pain, Palpitations ABD/GI: No: Abdominal Distended, Constipated, Diarrhea, Nausea, Vomiting : No: Burning, Dysuria Musculoskeletal: No: Back Pain, Joint Pain Integumentary: No: Bruising, Flushing Neurological: No: Headache, Numbness Psychiatric: No: Anxiety, Depression Endocrine: No: Intolerance to Cold, Intolerance to Heat Hematologic/Lymphatic: No: Anemia, Blood Clots *Physical Exam - Vital Signs Last Vital Signs Temp Pulse Resp BP Pulse Ox 99.1 F 80 15 98/57 L 92 L 10/10/19 08:54 10/10/19 08:54 10/10/19 08:54 10/10/19 08:54 10/10/19 08:54 - Physical Exam General Appearance: Yes: Nourished, Appropriately Dressed. No: Apparent Distress HEENT: positive: EOMI, JOSE ROBERTO (constricted 2mm klarissa), Normal Voice, Hearing Grossly Normal. negative: Scleral Icterus (R), Scleral Icterus (L) Respiratory/Chest: positive: Lungs Clear, Normal Breath Sounds. negative: Chest Tender, Respiratory Distress, Crackles, Rales, Rhonchi, Stridor, Wheezing Cardiovascular: positive: Regular Rhythm, Regular Rate, S1, S2. negative: Edema , Murmur Gastrointestinal/Abdominal: positive: Normal Bowel Sounds, Flat, Soft. negative : Tender, Organomegaly Extremity: positive: Delayed Capillary Refill, Other (5cm non purulent ulcer L medial ankle) Integumentary: positive: Normal Color, Dry Neurologic: positive: supervisor communications and signals II-XII NML intact, Fully Oriented, Alert, Normal Response, Respond to painful stimul, Responsive. negative: Normal Mood/Affect ( sleepy), Facial Droop, Numbness, Sensory Deficit, Confused, Disoriented ED Treatment Course - LABORATORY CBC & Chemistry Diagram: 10/10/19 09:25 10/10/19 09:25 Medical Decision Making - Medical Decision Making 10/10/19 09:49 EKG NSR, HR 71, QTc 462, no ST changes CXR - no acute pathology Hgb 11.2 (baseline), neg trop O2 54, CO2 >49, 7.34, pH lactic 0.9 --- 54yM w PMHx HIV (non compliant), HepB HepC, Bipolar, Depression, substance abuse (heroin, alcohol) presenting from [facility] w non productive cough x6d, lethargy, fever. Opioid overdose (pinpoint pupils) and URI. Low concern for ACS (neg trop, no ST changes) vs PNA (clear lungs). VBG shows mild respiratory acidosis BP 98/57, hypoxic to 88% on admission. Repeat 116/76 after fluids Given 30mL/kg NS, vanc, zosyn. Placed on 3L NC Admitted m/s Dr Willingham for opioid overdose, acute respiratory failure requiring supplemental O2 - pending UA, drug screen Discharge - Discharge Information Problems reviewed: Yes Clinical Impression/Diagnosis: Acute respiratory failure Qualifiers: Respiratory failure complication: hypoxia Qualified Code(s): J96.01 - Acute respiratory failure with hypoxia Opioid overdose Qualifiers: Encounter type: initial encounter Injury intent: undetermined intent Qualified Code(s): T40.2X4A - Poisoning by other opioids, undetermined, initial encounter Condition: Improved - Follow up/Referral - Patient Discharge Instructions - Post Discharge Activity
[2019-10-10] MEDS ORDERED: PIPERACILLIN/TAZOB 4.5 GM 4.5 GM in DEXTROSE 5%-WATER 100 ML IVPB ONE (09:55)
[2019-10-10] MEDS ORDERED: VANCOMYCIN 1 GM in D5W (PRE-DOCKED) 1,000 MG/250 ML IVPB ONE (09:55)
--- NOTE | 2019-10-10 10:40 | PDOC ---
Attending Attestation - Resident Resident Name: AmyFabian - ED Attending Attestation I have performed the following: I have examined & evaluated the patient, The case was reviewed & discussed with the resident, I agree w/resident's findings & plan, Exceptions are as noted - HPI HPI: 10/10/19 10:38 54yoM from [facility], hx of HIV (well controlled) HCV, active IVDU w/ heroin, active etoh abuse presents for evaluation of fever. Found to have hypoxia and hypotension. pt is very somnolent, ? medication effect from rehab facility. C/o cough, otherwise no complaints. - Physicial Exam PE: 10/10/19 10:39 NAD rrr, no m/r/g ctabl, no w/r/r soft ntnd + shallow based ulcer l medial maleolus area clean and non-purulent moving all 4 A&O x 3 - Medical Decision Making 10/10/19 10:39 54yoM transfer for [facility] for evaluation of cough, fever, hypoxia. Concern for pna/bronchitis. - labs - cxr - ivf - abx prn - reeval and dispo per results.
[2019-10-10] MEDS ORDERED: VANCOMYCIN 1 GRAM (PRE-DOCKED) 1,000 MG/250 ML BAG IVPB ONE (10:48)
[2019-10-10] MEDS ORDERED: PIPERACILLIN/TAZOB 4.5 GM 4.5 GM/100 ML BAG IVPB ONE (10:48)
[2019-10-10 11:04] LABS: BASO % 0.8 % (0-2.0); EOS % 0.1 % (0-4.5); HEMATOCRIT 33.8 % (35.4-49); HEMOGLOBIN 11.2 GM/dL (11.7-16.9); LYMPH % 11.5 % (8-40); MCH 27.4 pg (25.7-33.7); MONO % 27.9 % (3.8-10.2); NEUT % 59.7 % (42.8-82.8); PLATELET COUNT 146 K/MM3 (134-434); RBC 4.07 M/mm3 (4.00-5.60); RDW 14.5 % (11.9-15.9); WHITE BLOOD COUNT 6.5 K/mm3 (4.0-10.0)
[2019-10-10 11:32] LABS: ALK PHOS 103 U/L (45-117); ANION GAP 4 MMOL/L (8-16); BILIRUBIN,TOTAL 0.3 mg/dL (0.2-1); BLOOD UREA NITROGEN 31.8 mg/dL (7-18); CALCIUM 8.6 mg/dL (8.5-10.1); CHLORIDE 100 mmol/L (98-107); CO2 30 mmol/L (21-32); CREATININE 1.3 mg/dL (0.55-1.3); GLUCOSE,RANDOM 96 mg/dL (74-106); POTASSIUM 4.3 mmol/L (3.5-5.1); SGOT/AST 36 U/L (15-37); SGPT/ALT 18 U/L (13-61); SODIUM 134 mmol/L (136-145); TOT PROT 8.8 g/dl (6.4-8.2)
[2019-10-10 11:41] LABS: VENOUS PC02 54.4 mmHg (38-52); VENOUS PH 7.34 (7.31-7.41); VENOUS PO2 < 49 mmHg (28-48)
[2019-10-10 11:52] LABS: INR 1.28 (0.83-1.09); PROTHROMBIN TIME (PATIENT) 15.1 SEC (9.7-13.0)
[2019-10-10 11:54] LABS: ACTIVATED PTT 30.8 SECONDS (25.2-36.5)
[2019-10-10 13:58] LABS: ANISOCYTOSIS 0; MACROCYTOSIS 0; PLATELET ESTIMATE DECREASED
[2019-10-10] MEDS ORDERED: HEPARIN NA (PORCINE) 5,000 UNITS/ML 1ML VIAL SQ SCH (14:15)
[2019-10-10 14:53] LABS: HYALINE CASTS 3 /lpf (0-8); PH,URINE 5.5 (5.0-8.0); URINE APPEARANCE CLEAR; URINE BILIRUBIN NEGATIVE (NEGATIVE); URINE COLOR YELLOW; URINE GLUCOSE (UA) NEGATIVE (NEGATIVE); URINE KETONE NEGATIVE (NEGATIVE); URINE LEUK ESTERASE NEGATIVE (NEGATIVE); URINE NITRITE NEGATIVE (NEGATIVE); URINE PROTEIN 1+ (NEGATIVE); URINE RBC 6 /hpf (0-4); URINE UROBILINOGEN 0.2 mg/dL (0.2-1.0); URINE WBC 1 /hpf (0-5)
[2019-10-10] MEDS ORDERED: LORazepam 1 MG TABLET PO PRN (14:54)
--- NOTE | 2019-10-10 14:54 | HP ---
CHIEF COMPLAINT: fever, cough PCP:none HISTORY OF PRESENT ILLNESS: Patient is a 54 year old male with past medical history of HIV (on HAART), HBV/ HCV, Bipolar disorder, was brought in from [facility] due fever with Tmax 102.4 and nonproductive cough for 6 days. Patient is somnolent, arousable to voice, admitted to [facility] yesterday and started on Ativan protocol for EtOH detox. It was reported that patient received Ativan this morning and was lethargic, but was brought in to the ED for fevers. Patient unsure why he's brought to [facility] but denies any fevers, chills, headache, dizziness, chest pain, sOB, abdominal pain, diarrhea, urinary symptoms. At the ED, patient was found to be hypoxic to the high 80s and was subsequently placed on nasal cannula. Sepsis protocol initiated and patient was given IV VAnc /zosyn. At time of interview, patient still somnolent but arousable, saturating in the 90s at room air. ER course was notable for: (1)CXR - no acute pathology (2) (3) Recent Travel: denies PAST MEDICAL HISTORY: HIV (on HAART) HBV/HCV Bipolar disorder PAST SURGICAL HISTORY: none Social History: Smokin/2 ppd x >30years Alcohol:6 beers per day x >10 years Drugs: injects cocaine/heroin Allergies shellfish derived Allergy (Severe, Verified 10/09/19 11:51) Hives No Known Drug Allergies Allergy (Verified 10/09/19 11:51) HOME MEDICATIONS: Home Medications Medication Instructions Recorded Dolutegravir Sodium [Tivicay] 50 mg PO DAILY 07/27/18 Emtricitabine/Tenofov Alafenam 1 each PO DAILY 07/27/18 [Descovy 200-25 mg Tablet (Nf)] Silver Sulfadiazine [Silvadene] 20 gm TP BID #1 cream..g. 11/23/18 REVIEW OF SYSTEMS CONSTITUTIONAL: Absent: fever, chills, diaphoresis, generalized weakness, malaise, loss of appetite, weight change HEENT: Absent: rhinorrhea, nasal congestion, throat pain, throat swelling, difficulty swallowing, mouth swelling, ear pain, eye pain, visual changes CARDIOVASCULAR: Absent: chest pain, syncope, palpitations, irregular heart rate, lightheadedness , peripheral edema RESPIRATORY: Absent: cough, shortness of breath, dyspnea with exertion, orthopnea, wheezing, stridor, hemoptysis GASTROINTESTINAL: Absent: abdominal pain, abdominal distension, nausea, vomiting, diarrhea, constipation, melena, hematochezia GENITOURINARY: Absent: dysuria, frequency, urgency, hesitancy, hematuria, flank pain, genital pain MUSCULOSKELETAL: Absent: myalgia, arthralgia, joint swelling, back pain, neck pain SKIN: Absent: rash, itching, pallor HEMATOLOGIC/IMMUNOLOGIC: Absent: easy bleeding, easy bruising, lymphadenopathy, frequent infections ENDOCRINE: Absent: unexplained weight gain, unexplained weight loss, heat intolerance, cold intolerance NEUROLOGIC: Absent: headache, focal weakness or paresthesias, dizziness, unsteady gait, seizure, mental status changes, bladder or bowel incontinence PSYCHIATRIC: Absent: anxiety, depression, suicidal or homicidal ideation, hallucinations. PHYSICAL EXAMINATION Vital Signs - 24 hr 10/10/19 10/10/19 10/10/19 08:54 10:00 12:00 Temperature 99.1 F 98.5 F 98.9 F Pulse Rate 80 Pulse Rate [ 80 82 Apical] Respiratory 15 18 18 Rate Blood Pressure 98/57 L Blood Pressure 118/68 120/70 [Left Arm] O2 Sat by Pulse 92 L 99 99 Oximetry (%) 10/10/19 14:00 Temperature 98.5 F Pulse Rate Pulse Rate [ 80 Apical] Respiratory 20 Rate Blood Pressure Blood Pressure 135/84 [Left Arm] O2 Sat by Pulse 99 Oximetry (%) GENERAL: Awake, somnolent, arousable to voice, fully oriented, in no acute distress. HEAD: Normal with no signs of trauma. NECK: Normal range of motion, supple. LUNGS: Breath sounds equal, clear to auscultation bilaterally. HEART: Regular rate and rhythm, normal S1 and S2 without murmur, rub or gallop. ABDOMEN: Soft, nontender, not distended, normoactive bowel sounds. UPPER EXTREMITIES: +track velasquez b/l hands LOWER EXTREMITIES: 2+ pulses, warm, well-perfused. +LLE wound with tenderness, no erythema or warmth NEUROLOGICAL: Cranial nerves II-XII intact. Normal speech. PSYCHIATRIC: Cooperative. Good eye contact. Appropriate mood and affect. SKIN: Warm, dry, normal turgor. Laboratory Results - last 24 hr 10/10/19 10/10/1910/10/20 09:25 09:25 10:50 WBC 6.5 RBC 4.07 Hgb 11.2 L Hct 33.8 L MCV 83.0 MCH 27.4 MCHC 33.0 RDW 14.5 Plt Count 146 MPV 9.0 Absolute Neuts (auto) 3.9 Neutrophils % 59.7 D Neutrophils % (Manual) 56.4 Band Neutrophils % 12.9 Lymphocytes % 11.5 D Lymphocytes % (Manual) 13.9 Monocytes % 27.9 H D Monocytes % (Manual) 17 H Eosinophils % 0.1 D Eosinophils % (Manual) 0.0 Basophils % 0.8 Basophils % (Manual) 0.0 Myelocytes % (Man) 0 Promyelocytes % (Man) 0 Blast Cells % (Manual) 0 Nucleated RBC % 0 Metamyelocytes 0 Hypochromia 0 Platelet Estimate Decreased Polychromasia 0 Poikilocytosis 0 Anisocytosis 0 Microcytosis 0 Macrocytosis 0 PT with INR INR PTT (Actin FS) VBG pH POC VBG pCO2 POC VBG pO2 VBG HCO3 VBG O2 Sat (Radha) VBG Base Excess Sodium 134 L Potassium 4.3 Chloride 100 Carbon Dioxide 30 Anion Gap 4 L BUN 31.8 H Creatinine 1.3 Est GFR (CKD-EPI)AfAm 70.69 Est GFR (CKD-EPI)NonAf 60.99 Random Glucose 96 Lactic Acid 0.9 Calcium 8.6 Total Bilirubin 0.3 AST 36 ALT 18 Alkaline Phosphatase 103 Troponin I < 0.02 Total Protein 8.8 H Albumin 3.0 L 10/10/19 10/10/19 10:50 10:50 WBC RBC Hgb Hct MCV MCH MCHC RDW Plt Count MPV Absolute Neuts (auto) Neutrophils % Neutrophils % (Manual) Band Neutrophils % Lymphocytes % Lymphocytes % (Manual) Monocytes % Monocytes % (Manual) Eosinophils % Eosinophils % (Manual) Basophils % Basophils % (Manual) Myelocytes % (Man) Promyelocytes % (Man) Blast Cells % (Manual) Nucleated RBC % Metamyelocytes Hypochromia Platelet Estimate Polychromasia Poikilocytosis Anisocytosis Microcytosis Macrocytosis PT with INR 15.10 H INR 1.28 H PTT (Actin FS) 30.8 VBG pH 7.34 POC VBG pCO2 54.4 H POC VBG pO2 < 49 H VBG HCO3 28.7 VBG O2 Sat (Radha) 51.2 L VBG Base Excess 2.6 H Sodium Potassium Chloride Carbon Dioxide Anion Gap BUN Creatinine Est GFR (CKD-EPI)AfAm Est GFR (CKD-EPI)NonAf Random Glucose Lactic Acid Calcium Total Bilirubin AST ALT Alkaline Phosphatase Troponin I Total Protein Albumin ASSESSMENT/PLAN: Patient is a 54 year old male with past medical history of HIV (on HAART), HBV/ HCV, Bipolar disorder, was brought in from [facility] due fever with Tmax 102.4 and nonproductive cough for 6 days. #Fever -LLE wound vs possibly bacteremia from IVDU -CXR with no evidence of acute pathology -will repeat blood culture -UA -urine toxicology -echo -IVF boluses and IV Vanc/Zosyn given at the ED -will continue Vancomycin and Zosyn -ID (DR. Mondragon) consulted. -IVF #Acute metabolic encephalopathy likely 2/2 etoh intoxication -mental status improving -head CT -will continue ATivan protocol initiated at [facility] -urine toxicology #HIV -Continue HAART #NICHOLE -likely pre-renal -UA pending -FeNA -renal us #FEN -IV NS @100cc/hr -Routine bmp monitoring -Regular diet #Prophylaxis -Heparin 5000u sq tid #Disposition -full code -admit to med surg Visit type - Emergency Visit Emergency Visit: Yes ED Registration Date: 10/10/19 Care time: The patient presented to the Emergency Department on the above date and was hospitalized for further evaluation of their emergent condition. - New Patient This patient is new to me today: Yes Date on this admission: 10/10/19 - Critical Care Critical Care patient: No ATTENDING PHYSICIAN STATEMENT I saw and evaluated the patient. I reviewed the resident's note and discussed the case with the resident. I agree with the resident's findings and plan as documented. SUBJECTIVE: OBJECTIVE: ASSESSMENT AND PLAN:
[2019-10-10] MEDS ORDERED: LORazepam 2 MG TABLET PO SCH (17:00)
[2019-10-10] MEDS ORDERED: ACETAMINOPHEN 325 MG TABLET (FP) PO PRN (17:51)
[2019-10-10] MEDS ORDERED: PIPERACILLIN/TAZOBACTAM 4.5 GM VIAL IVPB ONE (18:26)
[2019-10-10] MEDS ORDERED: DEXTROSE 5%-WATER 100 ML IVPB ONE (18:26)
[2019-10-10] MEDS: ACETAMINOPHEN 325 MG TABLET (FP) PO PRN (18:31)
[2019-10-10] MEDS: PIPERACILLIN/TAZOB 4.5 GM 4.5 GM in DEXTROSE 5%-WATER 100 ML IVPB SCH (18:32)
[2019-10-10] MEDS: SODIUM CHLORIDE 1,000 ML IV SCH (18:33)
--- NOTE | 2019-10-10 19:38 | PN ---
Teaching Attending Note Name of Resident: Brittaney Marie ATTENDING PHYSICIAN STATEMENT I saw and evaluated the patient. I reviewed the resident's note and discussed the case with the resident. I agree with the resident's findings and plan as documented. SUBJECTIVE: Complains of cough and fever. Yellow sputum. No hemoptysis. No CP/ palpitations. No abdominal pain/nausea/vomiting. OBJECTIVE: Febrile. Hemodynamically Stable. Last Vital Signs Temp Pulse Resp BP Pulse Ox 102.9 F H 85 20 150/97 99 10/10/19 17:17 10/10/19 17:17 10/10/19 17:17 10/10/19 17:17 10/10/19 14:00 HEENT - Atraumatic, Normocephalic. Heart - S1, S2, RRR Lungs - Clear to auscultation Abdomen - soft, non-tender. Bowel Sound normal. Extremities - No edema, no calf tenderness. Neuro - AAO x 3. Tone/Power normal. Laboratory Results - last 24 hr 10/10/19 10/10/19 10/10/19 09:25 09:25 10:50 WBC 6.5 RBC 4.07 Hgb 11.2 L Hct 33.8 L MCV 83.0 MCH 27.4 MCHC 33.0 RDW 14.5 Plt Count 146 MPV 9.0 Absolute Neuts (auto) 3.9 Neutrophils % 59.7 D Neutrophils % (Manual) 56.4 Band Neutrophils % 12.9 Lymphocytes % 11.5 D Lymphocytes % (Manual) 13.9 Monocytes % 27.9 H D Monocytes % (Manual) 17 H Eosinophils % 0.1 D Eosinophils % (Manual) 0.0 Basophils % 0.8 Basophils % (Manual) 0.0 Myelocytes % (Man) 0 Promyelocytes % (Man) 0 Blast Cells % (Manual) 0 Nucleated RBC % 0 Metamyelocytes 0 Hypochromia 0 Platelet Estimate Decreased Polychromasia 0 Poikilocytosis 0 Anisocytosis 0 Microcytosis 0 Macrocytosis 0 PT with INR INR PTT (Actin FS) VBG pH POC VBG pCO2 POC VBG pO2 VBG HCO3 VBG O2 Sat (Radha) VBG Base Excess Sodium 134 L Potassium 4.3 Chloride 100 Carbon Dioxide 30 Anion Gap 4 L BUN 31.8 H Creatinine 1.3 Est GFR (CKD-EPI)AfAm 70.69 Est GFR (CKD-EPI)NonAf 60.99 Random Glucose 96 Lactic Acid 0.9 Calcium 8.6 Total Bilirubin 0.3 AST 36 ALT 18 Alkaline Phosphatase 103 Troponin I < 0.02 Total Protein 8.8 H Albumin 3.0 L Urine Color Urine Appearance Urine pH Ur Specific Bosworth Urine Protein Urine Glucose (UA) Urine Ketones Urine Blood Urine Nitrite Urine Bilirubin Urine Urobilinogen Ur Leukocyte Esterase Urine WBC (Auto) Urine RBC (Auto) Urine Casts (Auto) U Epithel Cells (Auto) Urine Bacteria (Auto) 10/10/19 10/10/19 10/10/19 10:50 10:50 13:30 WBC RBC Hgb Hct MCV MCH MCHC RDW Plt Count MPV Absolute Neuts (auto) Neutrophils % Neutrophils % (Manual) Band Neutrophils % Lymphocytes % Lymphocytes % (Manual) Monocytes % Monocytes % (Manual) Eosinophils % Eosinophils % (Manual) Basophils % Basophils % (Manual) Myelocytes % (Man) Promyelocytes % (Man) Blast Cells % (Manual) Nucleated RBC % Metamyelocytes Hypochromia Platelet Estimate Polychromasia Poikilocytosis Anisocytosis Microcytosis Macrocytosis PT with INR 15.10 H INR 1.28 H PTT (Actin FS) 30.8 VBG pH 7.34 POC VBG pCO2 54.4 H POC VBG pO2 < 49 H VBG HCO3 28.7 VBG O2 Sat (Radha) 51.2 L VBG Base Excess 2.6 H Sodium Potassium Chloride Carbon Dioxide Anion Gap BUN Creatinine Est GFR (CKD-EPI)AfAm Est GFR (CKD-EPI)NonAf Random Glucose Lactic Acid Calcium Total Bilirubin AST ALT Alkaline Phosphatase Troponin I Total Protein Albumin Urine Color Yellow Urine Appearance Clear Urine pH 5.5 Ur Specific Bosworth 1.018 Urine Protein 1+ H Urine Glucose (UA) Negative Urine Ketones Negative Urine Blood Trace Urine Nitrite Negative Urine Bilirubin Negative Urine Urobilinogen 0.2 Ur Leukocyte Esterase Negative Urine WBC (Auto) 1 Urine RBC (Auto) 6 Urine Casts (Auto) 3 U Epithel Cells (Auto) 1.0 Urine Bacteria (Auto) 1.0 Home Medications Medication Instructions Recorded Dolutegravir Sodium [Tivicay] 50 mg PO DAILY 07/27/18 Emtricitabine/Tenofov Alafenam 1 each PO DAILY 07/27/18 [Descovy 200-25 mg Tablet (Nf)] Silver Sulfadiazine [Silvadene] 20 gm TP BID #1 cream..g. 11/23/18 ASSESSMENT AND PLAN: 54 year old male histor of HIV (on HAART), IVDU (injects cocaine), Alcohol excess, HBV/HCV (s/p treatment), Bipolar Disorder, transferred from [facility] ( where he was undergoing alcohol detox with Ativan) due to fever and non- productive cough. 1. Acute Hypoxic Respiratory Failure, Fever, etiology unclear ?sec to Ativan for alcohol withdrawal. CXR - no acute cardiopulmonary findings CTA Chest to exclude Pneumonia/PE Septic Screen ordered. Active IV drug user. Blood/urine Cx pending. Flu swab requested. IV Zosyn/Vanco empirically ID consulted. 2. Acute Toxic Encephalopathy sec to ? alcohol withdrawal vs Ativan given for Alcohol Withdrawal CT Head - no acute findings. Mild to moderate ventricular dilatation and volume loss. Mental status improving, now AAO x 3. 3. Polysubstance Abuse (IV injection of cocaine Alcohol) Addiction Medicine consult. 4. HIV - on HAART ID consulted. DVT Px - will give one dose Lovenox now pending CTA chest to exclude PE.
[2019-10-10] MEDS ORDERED: ENOXAPARIN NA (PORCINE) 40 MG/0.4 ML DISP.SYRIN SQ ONE (19:47)
[2019-10-10 19:49] VITALS: BMI 21.3
[2019-10-10 20:12] LABS: PHENCYCLIDINE,URINE NEGATIVE ng/ml (CUTOFF=25); URINE AMPHETAMINES NEGATIVE ng/ml (CUTOFF=500); URINE BARBITURATES NEGATIVE ng/ml (CUTOFF=200); URINE BENZODIAZEPINES NEGATIVE ng/ml (CUTOFF=200)
[2019-10-10 20:18] LABS: COCAINE, UR POSITIVE ng/ml (CUTOFF=300); METHADONE, UR POSITIVE ng/ml (CUTOFF=300); OPIATES, URI POSITIVE ng/ml (CUTOFF=300)
[2019-10-10 20:54] LABS: MAGNESIUM 2.2 mg/dL (1.8-2.4); PHOSPHOROUS 3.6 mg/dL (2.5-4.9)
[2019-10-10] MEDS ORDERED: ENOXAPARIN NA (PORCINE) 80 MG/0.8 ML DISP.SYRIN SQ ONE (23:00)
[2019-10-10] MEDS: LORazepam 1 MG TABLET PO SCH (23:05)
[2019-10-11] MEDS ORDERED: DEXTROSE 5%-WATER 100 ML IVPB ONE ×2 (01:14→10:33)
[2019-10-11] MEDS ORDERED: PIPERACILLIN/TAZOBACTAM 4.5 GM VIAL IVPB ONE ×2 (01:14→10:33)
[2019-10-11] MEDS: PIPERACILLIN/TAZOB 4.5 GM 4.5 GM in DEXTROSE 5%-WATER 100 ML IVPB SCH ×3 (02:14→11:45)
[2019-10-11] MEDS: LORazepam 1 MG TABLET PO SCH (05:01)
[2019-10-11] MEDS: ACETAMINOPHEN 325 MG TABLET (FP) PO PRN ×2 (05:10→18:10)
[2019-10-11] MEDS: SILVER SULFADIAZINE 1% TOP CREAM 50 GM JAR TP SCH ×2 (07:57→13:17)
[2019-10-11] MEDS ORDERED: VANCOMYCIN HCL 1,250 MG in DEXTROSE 5%-WATER - 250 ML IVPB ONE (08:43)
--- NOTE | 2019-10-11 08:52 | CONSULT ---
Consult Detox [facility] Reason for Current Admission/Consult: for alcohol and substance abused Referred by:: Errol Willingham - History History of Present Illness: this 54 years old male with alcohol dependence and substance abused,mmtp 140 mgs /day hiv,hepatitis c,weight loss,admitted at [facility] from 10/09/2019 to 10/10/2019, patient was transferred to [facility] ER on 10/10/2019 for febrile,coughing patient has multiple admissions in detox,last [facility] 11/20/18 to 11/24/18 patient seen at beside alert,but keep falling to sleep when asking for information the record by Dr Becker and Nurse Jaylin Martinez patient is drinking daily 1 pint of vodka,stated at age of 10,last drink 2019 - History Source History Provided By: Medical Record Limitations to Obtaining History: Other (alter mental status) - Alcohol/Substance Use Hx Alcohol Use: Yes - Past Medical History Cardio/Vascular: Yes: HTN Hepatobiliary: Yes: Hepatitis C Infectious Disease: Yes: HIV - Past Surgical History Past Surgical History: Yes: None - Significant Medical Findings: Vital Signs Temperature 98.4 F 10/11/19 02:00 Pulse Rate 77 10/11/19 02:00 Respiratory Rate 18 10/11/19 02:00 Blood Pressure 134/77 10/11/19 02:00 O2 Sat by Pulse Oximetry (%) 90 L 10/10/19 21:00 Assessment Plan - Plan Plan: patient has been on ativan regimen,will continue ativan regimen has alter mental status,will reduce methadone to 70 mgs/day,with close monitoring of vital signs and respiration,work up for febrile thanks you for your consultation - Medication Detox Regimen/Protocol: Ativan
[2019-10-11] MEDS ORDERED: METHADONE HCL 10 MG TABLET PO ONE (09:06)
[2019-10-11] MEDS ORDERED: METHADONE 40 MG, METHADONE 30 MG PO ONE (09:30)
[2019-10-11] MEDS ORDERED: VANCOMYCIN 1 GRAM (PRE-DOCKED) 1,000 MG/250 ML BAG IVPB ONE (10:00)
[2019-10-11] MEDS ORDERED: ENOXAPARIN NA (PORCINE) 40 MG/0.4 ML DISP.SYRIN SQ SCH (10:00)
[2019-10-11] MEDS ORDERED: VANCOMYCIN 1 GM in D5W (PRE-DOCKED) 1,000 MG/250 ML IVPB SCH (10:00)
[2019-10-11] MEDS ORDERED: METHADONE HCL 10 MG TABLET ONE (10:31)
[2019-10-11] MEDS ORDERED: METHADONE HCL 40 MG DISPERSABLE TABLET ONE (10:31)
[2019-10-11] MEDS ORDERED: PT OWN MED DRAWER 7, Y5N ONE ×3 (10:32→20:19)
[2019-10-11] MEDS: MULTIVITAMINS (DAILY MVI) TABLET (FP) PO SCH (10:40)
[2019-10-11] MEDS: FOLIC ACID 1 MG TABLET (FP) PO SCH (10:42)
[2019-10-11] MEDS: THIAMINE HCL 100 MG TABLET (FP) PO SCH (10:42)
[2019-10-11] MEDS: VANCOMYCIN 1,250 MG in DEXTROSE 5%-WATER - 250 ML IVPB SCH ×2 (11:25→21:16)
--- NOTE | 2019-10-11 11:28 | PN ---
Progress Note (short form) - Note Progress Note: ID consult dictated imp/reccd 54 yo man with HIV - on tivicay and descovy, followed at [facility], history of polysubstance use including injection heroine use hepC- reports he was treated in the past admitted from detox with fever of 102 2/ sent to ED yesterday am cultures done and started on vancomycin and zosyn he is somewhat sedated from his ativan and methadone but awakens to answer questions requesting pain meds for chronic LLE leg ulcer fever- gram positive bacteremia- r/o endocarditis vancomycin/zosyn for now, taper antibiotics in am vancomycin trough in am echo ekg repeat blood cultures in am ?pneumonia on chest ct - would repeat cxray after hydration repeat blood cultures in am swollen left index finger- denies trauma, xray no fracture, doesnot look embolic , would follow closely, may need hand surgery if finger does not improve with antibiotics HIV- continue tivicay and descovy, check cd4 count reports tcell in the 400s, folowed by Farrah history of hep C
[2019-10-11] MEDS: DOLUTEGRAVIR SODIUM 50 MG TABLET (NON-FORMULARY) PO SCH (13:16)
[2019-10-11] MEDS: EMTRICITABINE/TENOFOV ALAFENAM (DESCOVY) TABLET PO SCH (13:16)
[2019-10-11] MEDS: SODIUM CHLORIDE 1,000 ML IV SCH (13:19)
--- NOTE | 2019-10-11 15:00 | PN ---
Teaching Attending Note Name of Resident: Rich Jimenes ATTENDING PHYSICIAN STATEMENT I saw and evaluated the patient. I reviewed the resident's note and discussed the case with the resident. I agree with the resident's findings and plan as documented. SUBJECTIVE: Complains of ongoing cough, yellow sputum. No hemoptysis. No CP/ palpitations. No abdominal pain/nausea/vomiting. OBJECTIVE: Febrile tmax 102.9. Hemodynamically Stable. Mild tremor of outstretched extremities. Last Vital Signs Temp Pulse Resp BP Pulse Ox 98.4 F 80 16 136/80 90 L 10/11/19 10:59 10/11/19 10:59 10/11/19 10:59 10/11/19 10:59 10/10/19 21:00 Heart - S1, S2, RRR Lungs - Clear to auscultation Abdomen - soft, non-tender. Bowel Sound normal. Extremities - No edema, no calf tenderness. Mild swelling/tenderness L index finger. No evidence of cellulitis currently. Venous stasis skin changes LEs. Neuro - AAO x 3. Tone/Power normal. Laboratory Results - last 24 hr 10/10/19 10/10/19 10/10/19 10:50 18:30 18:30 Phosphorus 3.6 Magnesium 2.2 Urine Osmolality 572 Ur Random Creatinine Ur Random Sodium 103 Opiates Screen Positive A* Methadone Screen Positive A* Barbiturate Screen Negative Phencyclidine Screen Negative Ur Amphetamines Screen Negative MDMA (Ecstasy) Screen Negative Benzodiazepines Screen Negative Cocaine Screen Positive A* U Marijuana (THC) Screen Negative Influenza A (Rapid) Influenza B (Rapid) 10/10/19 10/10/19 18:30 21:30 Phosphorus Magnesium Urine Osmolality Ur Random Creatinine 81.0 Ur Random Sodium Opiates Screen Methadone Screen Barbiturate Screen Phencyclidine Screen Ur Amphetamines Screen MDMA (Ecstasy) Screen Benzodiazepines Screen Cocaine Screen U Marijuana (THC) Screen Influenza A (Rapid) Negative Influenza B (Rapid) Negative Current Medications Generic Name Dose Route Start Last Admin Trade Name Freq PRN Reason Stop Dose Admin Acetaminophen 650 mg 10/10/19 17:28 10/11/19 05:10 Tylenol - PO 650 mg Q6H PRN Administration Fever Folic Acid 1 mg 10/11/19 10:00 10/11/19 10:42 Folic Acid - PO 1 mg DAILY ELIGIO Administration Sodium Chloride 1,000 mls @ 100 mls/hr 10/10/19 18:00 10/11/19 13:19 Normal Saline - IV 100 mls/hr ASDIR ELIGIO Administration Vancomycin HCl 1,250 mg/ 250 mls @ 166.667 mls/hr 10/11/19 10:00 10/11/19 11: 25 Dextrose IVPB 166.667 mls/hr BID ELIGIO Administration Protocol Piperacillin Sod/Tazobactam 50 mls @ 100 mls/hr 10/11/19 18:00 Sod 3.375 gm/ Dextrose IVPB Q8H-IV ELIGIO Protocol Lorazepam 0.5 mg 10/13/19 05:00 Ativan - PO 10/13/19 23:01 Q6H ELIGIO Lorazepam 0.5 mg 10/13/19 00:00 Ativan - PO 10/14/19 00:00 Q4H PRN Symptoms of Withdrawal Lorazepam 0.5 mg 10/14/19 05:00 Ativan - PO 10/14/19 05:01 ONCE ONE Lorazepam 1 mg 10/12/19 05:00 Ativan - PO 10/12/19 23:01 0500,1100,1700,2300 ELIGIO Lorazepam 1 mg 10/10/19 14:54 Ativan - PO 10/12/19 23:59 Q4H PRN Symptoms of Withdrawal Methadone HCl 70 mg 10/12/19 06:00 Dolophine - PO DAILY@0600 [facility] Multivitamins/Minerals/Vitamin C 1 tab 10/11/19 10:00 10/11/19 10:40 Tab-A-Vit - PO 1 tab DAILY ELIGIO Administration Silver Sulfadiazine 1 applic 10/10/19 22:00 10/11/19 13:17 Silvadene - TP 1 applic BID ELIGIO Administration Thiamine HCl 100 mg 10/11/19 10:00 10/11/19 10:42 Vitamin B1 - PO 100 mg DAILY ELIGIO Administration Home Medications Medication Instructions Recorded Dolutegravir Sodium [Tivicay] 50 mg PO DAILY 07/27/18 Emtricitabine/Tenofov Alafenam 1 each PO DAILY 07/27/18 [Descovy 200-25 mg Tablet (Nf)] Silver Sulfadiazine [Silvadene] 20 gm TP BID #1 cream..g. 11/23/18 Methadone [Dolophine -] 140 mg PO DAILY 10/11/19 ASSESSMENT AND PLAN: 54 year old male histor of HIV (on HAART), IVDU (injects cocaine), Alcohol excess, HBV/HCV (s/p treatment), Bipolar Disorder, transferred from [facility] ( where he was undergoing alcohol detox with Ativan) due to fever and non- productive cough. 1. Acute Hypoxic Respiratory Failure, etiology unclear ?sec to Ativan for alcohol withdrawal - now SpO2 90% on RA CXR - no acute cardiopulmonary findings CTA Chest - emphysematous changes, no PE, bibasal atelectasis Will monitor. 2. Fever secondary to Bacteremia in IV drug user Blood Cx - gram pos cocci in clusters Echo to exclude Endocarditis. Flu negative. IV Zosyn/Vanco empirically ID following. 3. Acute Toxic Encephalopathy sec to ? alcohol withdrawal vs Ativan given for Alcohol Withdrawal CT Head - no acute findings. Mild to moderate ventricular dilatation and volume loss. Mental status improving, now AAO x 3. 3. Polysubstance Abuse (IV injection of cocaine, Alcohol) Addiction Medicine consulted - to continue Ativan detox protocol 4. HIV - resumed on HAART ID following. DVT Px - Lovenox SQ.
--- NOTE | 2019-10-11 15:01 | ECHO ---
Name: ALYSHA CHANG Exam:Adult Echocardiogram Study Date: 10/11/2019 02:03 PM Age: 54 yrs Reason For Study: Fever, IVDU Height: 71 in Weight: 156 lb BSA: 1.9 m2 MMode/2D Measurements & Calculations IVSd: 0.93 cm Ao root diam: 3.6 cm LVIDd: 4.2 cm LA dimension: 3.3 cm LVIDs: 3.1 cm ACS: 2.1 cm LVPWd: 0.86 cm EDV(Teich): 79.7 ml LVOT diam: 1.9 cm ESV(Teich): 37.3 ml RV S Gio: 14.8 cm/sec Doppler Measurements & Calculations MV E max gio: 77.0 cm/sec Ao V2 max: 144.5 cm/sec MV A max gio: 75.5 cm/sec Ao max P.3 mmHg MV E/A: 1.0 Ao V2 mean: 93.5 cm/sec MV dec time: 0.22 sec Ao mean P.1 mmHg Ao V2 VTI: 27.7 cm ANNIE(I,D): 2.6 cm2 ANNIE(V,D): 2.4 cm2 LV V1 max P.0 mmHg MR max gio: 414.9 cm/sec LV V1 mean P.5 mmHg MR max P.5 mmHg LV V1 max: 122.9 cm/sec LV V1 mean: 86.6 cm/sec LV V1 VTI: 25.3 cm SV(LVOT): 71.0 ml TR max gio: 227.7 cm/sec TR max P.8 mmHg PA V2 max: 63.2 cm/sec Med Peak E' Gio: 8.7 cm/sec PA max P.6 mmHg Med E/e': 8.9 Lat Peak E' Gio: 13.7 cm/sec Lat E/e': 5.6 Left Ventricle Left ventricular systolic function is normal. Ejection Fraction = 55-60%. The transmitral spectral Do ppler flow pattern is suggestive of impaired LV relaxation. Right Ventricle The right ventricle is normal in size and function. Atria Normal left and right atrial size and function. Mitral Valve The mitral valve is normal in structure and function. There is no mitral valve stenosis. There is tra ce to mild mitral regurgitation. Tricuspid Valve The tricuspid valve is normal in structure and function. There is Trace to mild tricuspid regurgitati on. Aortic Valve The aortic valve opens well. No hemodynamically significant valvular aortic stenosis. No aortic regur gitation is present. Pulmonic Valve The pulmonic valve is not well visualized. There is no pulmonic valvular stenosis. Great Vessels The aortic root is normal size. Pericardium/Pleura Small pericardial effusion (<1cm). There are no echocardiographic indications of cardiac tamponade. Interpretation Summary There is no evidence of a mass or vegetation. This does not rule out endocarditis. Left ventricular s ystolic function is normal. Ejection Fraction = 55-60%. The transmitral spectral Doppler flow pattern is suggestive of impaired LV relaxation. The right ventricle is normal in size and function. There is trace to mild mitral regurgitation. There is Trace to mild tricuspid regurgitation. The pulmonic valve is not well visualized. Small pericardial effusion (<1cm) There are no echocardiographic indications of cardiac tamponade. MD Savage *Sarah 10/11/2019 03:00 PM
--- NOTE | 2019-10-11 15:03 | EKG ---
Test Reason : Blood Pressure : / mmHG Vent. Rate : 079 BPM Atrial Rate : 079 BPM P-R Int : 128 ms QRS Dur : 102 ms QT Int : 382 ms P-R-T Axes : 051 -22 049 degrees QTc Int : 438 ms NORMAL SINUS RHYTHM INCOMPLETE RIGHT BUNDLE BRANCH BLOCK WHEN COMPARED WITH ECG OF 10-OCT-2019 11:39, NO SIGNIFICANT CHANGE WAS FOUND Confirmed by MONA MALCOLM MD ([id number]) on 10/11/2019 3:02:38 PM Referred By: Confirmed By:MONA MALCOLM MD
--- NOTE | 2019-10-11 15:18 | PN ---
Physical Exam: SUBJECTIVE: Patient seen and examined OBJECTIVE: Vital Signs Period Temp Pulse Resp BP Sys/Dawson Pulse Ox Last 24 Hr 98.4 F-102.9 F 77-85 16-20 114-150/65-97 90-99 GENERAL: The patient is awake, alert, and fully oriented, in no acute distress. HEAD: Normal with no signs of trauma. EYES: PERRL, extraocular movements intact, sclera anicteric, conjunctiva clear. No ptosis. ENT: Ears normal, nares patent, oropharynx clear without exudates, moist mucous membranes. NECK: Trachea midline, full range of motion, supple. LUNGS: Breath sounds equal, clear to auscultation bilaterally, no wheezes, no crackles, no accessory muscle use. HEART: Regular rate and rhythm, S1, S2 without murmur, rub or gallop. ABDOMEN: Soft, nontender, nondistended, normoactive bowel sounds, no guarding, no rebound, no hepatosplenomegaly, no masses. EXTREMITIES: 2+ pulses, warm, well-perfused, no edema. NEUROLOGICAL: Cranial nerves II through XII grossly intact. Normal speech, gait not observed. PSYCH: Normal mood, normal affect. SKIN: Warm, dry, normal turgor, no rashes or lesions noted Laboratory Results - last 24 hr 10/10/19 10/10/19 10/10/19 10:50 18:30 18:30 Phosphorus 3.6 Magnesium 2.2 Urine Osmolality 572 Ur Random Creatinine Ur Random Sodium 103 Opiates Screen Positive A* Methadone Screen Positive A* Barbiturate Screen Negative Phencyclidine Screen Negative Ur Amphetamines Screen Negative MDMA (Ecstasy) Screen Negative Benzodiazepines Screen Negative Cocaine Screen Positive A* U Marijuana (THC) Screen Negative Influenza A (Rapid) Influenza B (Rapid) 10/10/19 10/10/19 18:30 21:30 Phosphorus Magnesium Urine Osmolality Ur Random Creatinine 81.0 Ur Random Sodium Opiates Screen Methadone Screen Barbiturate Screen Phencyclidine Screen Ur Amphetamines Screen MDMA (Ecstasy) Screen Benzodiazepines Screen Cocaine Screen U Marijuana (THC) Screen Influenza A (Rapid) Negative Influenza B (Rapid) Negative CBC,CMP WBC 6.5 K/mm3 (4.0-10.0) 10/10/19 09:25 RBC 4.07 M/mm3 (4.00-5.60) 10/10/19 09:25 Hgb 11.2 GM/dL (11.7-16.9) L 10/10/19 09:25 Hct 33.8 % (35.4-49) L 10/10/19 09:25 MCV 83.0 fl (80-96) 10/10/19 09:25 MCH 27.4 pg (25.7-33.7) 10/10/19 09:25 MCHC 33.0 g/dl (32.0-35.9) 10/10/19 09:25 RDW 14.5 % (11.9-15.9) 10/10/19 09:25 Plt Count 146 K/MM3 (134-434) 10/10/19 09:25 MPV 9.0 fl (7.5-11.1) 10/10/19 09:25 Absolute Neuts (auto) 3.9 K/mm3 (1.5-8.0) 10/10/19 09:25 Neutrophils % 59.7 % (42.8-82.8) D 10/10/19 09:25 Neutrophils % (Manual) 56.4 % (42.8-82.8) 10/10/19 09:25 Band Neutrophils % 12.9 % 10/10/19 09:25 Lymphocytes % 11.5 % (8-40) D 10/10/19 09:25 Lymphocytes % (Manual) 13.9 % (8-40) 10/10/19 09:25 Monocytes % 27.9 % (3.8-10.2) H D 10/10/19 09:25 Monocytes % (Manual) 17 % (3.8-10.2) H 10/10/19 09:25 Eosinophils % 0.1 % (0-4.5) D 10/10/19 09:25 Eosinophils % (Manual) 0.0 % (0-4.5) 10/10/19 09:25 Basophils % 0.8 % (0-2.0) 10/10/19 09:25 Basophils % (Manual) 0.0 % (0-2.0) 10/10/19 09:25 Myelocytes % (Man) 0 % (0-2) 10/10/19 09:25 Promyelocytes % (Man) 0 % (0-2) 10/10/19 09:25 Blast Cells % (Manual) 0 % (0-0) 10/10/19 09:25 Nucleated RBC % 0 % (0-0) 10/10/19 09:25 Metamyelocytes 0 % (0-2) 10/10/19 09:25 Hypochromia 0 10/10/19 09:25 Platelet Estimate Decreased 10/10/19 09:25 Polychromasia 0 10/10/19 09:25 Poikilocytosis 0 10/10/19 09:25 Anisocytosis 0 10/10/19 09:25 Microcytosis 0 10/10/19 09:25 Macrocytosis 0 10/10/19 09:25 Sodium 134 mmol/L (136-145) L 10/10/19 09:25 Potassium 4.3 mmol/L (3.5-5.1) 10/10/19 09:25 Chloride 100 mmol/L (98-107) 10/10/19 09:25 Carbon Dioxide 30 mmol/L (21-32) 10/10/19 09:25 Anion Gap 4 MMOL/L (8-16) L 10/10/19 09:25 BUN 31.8 mg/dL (7-18) H 10/10/19 09:25 Creatinine 1.3 mg/dL (0.55-1.3) 10/10/19 09:25 Est GFR (CKD-EPI)AfAm 70.69 10/10/19 09:25 Est GFR (CKD-EPI)NonAf 60.99 10/10/19 09:25 Random Glucose 96 mg/dL (74-106) 10/10/19 09:25 Lactic Acid 0.9 mmol/L (0.4-2.0) 10/10/19 10:50 Calcium 8.6 mg/dL (8.5-10.1) 10/10/19 09:25 Phosphorus 3.6 mg/dL (2.5-4.9) 10/10/19 10:50 Magnesium 2.2 mg/dL (1.8-2.4) 10/10/19 10:50 Total Bilirubin 0.3 mg/dL (0.2-1) 10/10/19 09:25 AST 36 U/L (15-37) 10/10/19 09:25 ALT 18 U/L (13-61) 10/10/19 09:25 Alkaline Phosphatase 103 U/L (45-117) 10/10/19 09:25 Troponin I < 0.02 ng/ml (0.00-0.05) 10/10/19 09:25 Total Protein 8.8 g/dl (6.4-8.2) H 10/10/19 09:25 Albumin 3.0 g/dl (3.4-5.0) L 10/10/19 09:25 Active Medications Generic Name Dose Route Start Last Admin Trade Name Freq PRN Reason Stop Dose Admin Acetaminophen 650 mg 10/10/19 17:28 10/11/19 05:10 Tylenol - PO 650 mg Q6H PRN Administration Fever Folic Acid 1 mg 10/11/19 10:00 10/11/19 10:42 Folic Acid - PO 1 mg DAILY ELIGIO Administration Sodium Chloride 1,000 mls @ 100 mls/hr 10/10/19 18:00 10/11/19 13:19 Normal Saline - IV 100 mls/hr ASDIR ELIGIO Administration Vancomycin HCl 1,250 mg/ 250 mls @ 166.667 mls/hr 10/11/19 10:00 10/11/19 11: 25 Dextrose IVPB 166.667 mls/hr BID ELIGIO Administration Protocol Piperacillin Sod/Tazobactam 50 mls @ 100 mls/hr 10/11/19 18:00 Sod 3.375 gm/ Dextrose IVPB Q8H-IV ELIGIO Protocol Lorazepam 0.5 mg 10/13/19 05:00 Ativan - PO 10/13/19 23:01 Q6H ELIGIO Lorazepam 0.5 mg 10/13/19 00:00 Ativan - PO 10/14/19 00:00 Q4H PRN Symptoms of Withdrawal Lorazepam 0.5 mg 10/14/19 05:00 Ativan - PO 10/14/19 05:01 ONCE ONE Lorazepam 1 mg 10/12/19 05:00 Ativan - PO 10/12/19 23:01 0500,1100,1700,2300 ELIGIO Lorazepam 1 mg 10/10/19 14:54 Ativan - PO 10/12/19 23:59 Q4H PRN Symptoms of Withdrawal Methadone HCl 70 mg 10/12/19 06:00 Dolophine - PO DAILY@0600 ELIGIO Multivitamins/Minerals/Vitamin C 1 tab 10/11/19 10:00 10/11/19 10:40 Tab-A-Vit - PO 1 tab DAILY ELIGIO Administration Silver Sulfadiazine 1 applic 10/10/19 22:00 10/11/19 13:17 Silvadene - TP 1 applic BID ELIGIO Administration Thiamine HCl 100 mg 10/11/19 10:00 10/11/19 10:42 Vitamin B1 - PO 100 mg DAILY ELIGIO Administration ASSESSMENT/PLAN: 54 y/o M, pmh of HIV (on HAART), HBV/HCV, Bipolar disorder, sent from [facility] due fever with Tmax 102.4 and nonproductive cough x6 days is admitted for Acute hypoxic resp failure #Acute Hypoxic resp failure likely 2/2 to gram positive bacteremia IV drug user Will need to r/o Endocarditis- ECHO pending Vanc and zosyn continue Will need to f/u Vanc trough to taper dose R/p BCx in the am #Left index finger swelling likely 2/2 to cellulitis cont abx monitor Chronic LLE leg ulcer monitor #HIV cont Tivicay + Descovy F/u CD4 count Last Tcells reported to be 400 ID following- Dr. Jeong #Polysubstance Abuse IVDU- cocaine + Alcohol Addiction Medicine consult- Dr. Joel- recom reducing Methadone to 70 Pt on ativan protocol monitor for fever and respiratory symptoms thiamine, folate #DVTppx SCDs for now FEN monitor lytes regular diet IVF NS at 100 Dispo: cont ativan, methadone, vanc/zosyn, f/u ECHO, consider DVT prpx with lovenox Visit type - Emergency Visit Emergency Visit: Yes ED Registration Date: 10/10/19 Care time: The patient presented to the Emergency Department on the above date and was hospitalized for further evaluation of their emergent condition. - New Patient This patient is new to me today: Yes Date on this admission: 10/16/19 - Critical Care Critical Care patient: No - Discharge Referral Referred to [facility] Med P.C.: No ATTENDING PHYSICIAN STATEMENT I saw and evaluated the patient. I reviewed the resident's note and discussed the case with the resident. I agree with the resident's findings and plan as documented. SUBJECTIVE: OBJECTIVE: ASSESSMENT AND PLAN:
[2019-10-11] MEDS ORDERED: DEXTROSE 5%-WATER - 50 ML IVPB ONE (16:14)
[2019-10-11] MEDS ORDERED: PIPERACILLIN/TAZOBACTAM 3.375 GM VIAL IVPB ONE (16:14)
[2019-10-11] MEDS: ASPIRIN COATED 81 MG TABLET.EC PO SCH (16:38)
[2019-10-11] MEDS: ATORVASTATIN CA 20 MG TABLET (FP) PO SCH (16:39)
[2019-10-11] MEDS: PIPERACILLIN/TAZOB 3.375 GM 3.375 GM in DEXTROSE 5%-WATER - 50 ML IVPB SCH (18:10)
[2019-10-12] MEDS ORDERED: DEXTROSE 5%-WATER - 50 ML IVPB ONE ×2 (00:39→10:21)
[2019-10-12] MEDS ORDERED: PIPERACILLIN/TAZOBACTAM 3.375 GM VIAL IVPB ONE ×3 (00:39→17:03)
[2019-10-12] MEDS: SODIUM CHLORIDE 1,000 ML IV SCH ×2 (01:21→22:46)
[2019-10-12] MEDS: PIPERACILLIN/TAZOB 3.375 GM 3.375 GM in DEXTROSE 5%-WATER - 50 ML IVPB SCH ×3 (01:30→18:00)
[2019-10-12] MEDS: ACETAMINOPHEN 325 MG TABLET (FP) PO PRN ×3 (01:31→22:15)
[2019-10-12] MEDS: SILVER SULFADIAZINE 1% TOP CREAM 50 GM JAR TP SCH ×3 (02:32→22:28)
[2019-10-12] MEDS: LORazepam 1 MG TABLET PO SCH ×5 (05:08→22:15)
[2019-10-12] MEDS ORDERED: METHADONE HCL 40 MG DISPERSABLE TABLET ONE (05:37)
[2019-10-12] MEDS ORDERED: METHADONE HCL 10 MG TABLET ONE (05:37)
[2019-10-12] MEDS ORDERED: METHADONE HCL 40 MG DISPERSABLE TABLET PO SCH (06:00)
--- NOTE | 2019-10-12 06:40 | CONS ---
INFECTIOUS DISEASE CONSULTATION DATE OF CONSULTATION: DATE OF DICTATION: 10/11/2019 REQUESTED BY: The hospitalist service. HISTORY: This is a 54-year-old man. He has a past medical history of HIV and substance use. He is an injection heroin user. He also drinks alcohol, and he presented to [facility] on the for alcohol detoxification. While there, he was noted to have a fever of 102, and he was transferred to the emergency room. I am asked to see him today. He had fever again last night of 102. I am asked to see him again for positive blood cultures. He is somewhat sedated from his Ativan and methadone, but he awakens to answers questions. He is on vancomycin and Zosyn at this time. PAST MEDICAL HISTORY: Notable for HIV from 1982. He is followed at [facility]. He is on Tivicay and Descovy. He reports his T cells are over 400. He has a history of polysubstance abuse including injection heroin use. He drinks beer and vodka, and he uses cocaine and smokes cigarettes. He has a history of hepatitis C that he reports was treated in the past. He has bipolar disorder. He reports he has a chronic ulcer on his leg and is requesting pain medications. ALLERGIES: He is allergic to SHELLFISH. MEDICATIONS: As an outpatient include multivitamins, Lipitor, aspirin, Descovy, Tivicay, and methadone. SOCIAL HISTORY: He lives in the [place] with his sister. REVIEW OF SYSTEMS: Not obtainable at this time. He reports he gets his needles from a van that drops them off, so I think he is part of a needle exchange. It is unclear if he shares needles. PHYSICAL EXAMINATION: Vital Signs: His maximum temperature was 102.4 yesterday, his current temperature is 98.4, pulse of 80, blood pressure 136/80, respiratory rate 16. HEENT: He is normocephalic. His eyes are anicteric. He has no conjunctival hemorrhages. Neck: Supple. Lungs: Clear to auscultation. Heart: Regular rate and rhythm. He has no other evidence of endocarditis on exam. Abdomen: Soft, nontender. Extremities: Notable for a swollen, left index finger. It is diffusely swollen. He has no open skin lesions except for the chronic ulcer that is about 3 x 5 cm on his left lower leg. He has plantar calluses on both his feet. DIAGNOSTIC DATA: His white count is 6.5, hemoglobin is 11.2, platelets are 146. BUN 31, creatinine 1.3. Urinalysis is negative. His toxicology screen is notable for opiates, methadone, and cocaine. Influenza screen is negative, and blood cultures 4/4 bottles are growing gram-positive cocci in clusters. He had a head CT done on admission that showed atrophy, [id number] volume loss, and ventricular dilatation. He had a chest CTA notable for no definite evidence of PE, and there were some increased opacities felt to be more consistent with atelectasis. Cannot rule out a superimposed infiltrate. In summary, this is a 54-year-old man with HIV with now fever and gram-positive bacteremia in the setting of substance use, rule out endocarditis. Vancomycin and Zosyn for now. Taper antibiotics as needed. Vancomycin trough in AM. He needs an echocardiogram and EKG and repeat blood cultures. Question of pneumonia on chest CT. Would repeat chest x-ray after hydration and would continue Zosyn for now. He has a swollen left index finger. He denies trauma. X-rays of that fracture do not look embolic. Would follow closely. May need hand surgery if the finger does not improve with antibiotics. Regarding his HIV, continue Arian Moreno. Check his T cells. He is followed by at the [facility]. History of hepatitis C patient reports treated in the past. Further recommendations to follow. PELON HOWELL M.D. [id number]
[2019-10-12] MEDS: METHADONE 40 MG, METHADONE 30 MG PO SCH (08:37)
[2019-10-12 09:15] LABS: HEMATOCRIT 29.2 % (35.4-49); HEMOGLOBIN 9.9 GM/dL (11.7-16.9); MCH 27.5 pg (25.7-33.7); MCHC 33.9 g/dl (32.0-35.9); MEAN CELL VOLUME 81.2 fl (80-96); MEAN PLT VOLUME 7.8 fl (7.5-11.1); PLATELET COUNT 159 K/MM3 (134-434); RBC 3.59 M/mm3 (4.00-5.60); RDW 14.2 % (11.9-15.9); WHITE BLOOD COUNT 4.9 K/mm3 (4.0-10.0)
[2019-10-12] MEDS: PIPERACILLIN/TAZOB 4.5 GM 4.5 GM in DEXTROSE 5%-WATER 100 ML IVPB SCH (09:40)
[2019-10-12 09:50] LABS: ALBUMIN 2.7 g/dl (3.4-5.0); BILIRUBIN,TOTAL 0.5 mg/dL (0.2-1); BLOOD UREA NITROGEN 12.9 mg/dL (7-18); CALCIUM 8.5 mg/dL (8.5-10.1); CREATININE 1.1 mg/dL (0.55-1.3); MAGNESIUM 1.9 mg/dL (1.8-2.4); POTASSIUM 3.8 mmol/L (3.5-5.1); TOT PROT 8.3 g/dl (6.4-8.2)
[2019-10-12] MEDS: MULTIVITAMINS (DAILY MVI) TABLET (FP) PO SCH (10:30)
[2019-10-12] MEDS: THIAMINE HCL 100 MG TABLET (FP) PO SCH (10:30)
[2019-10-12] MEDS: FOLIC ACID 1 MG TABLET (FP) PO SCH (10:30)
[2019-10-12] MEDS: ASPIRIN COATED 81 MG TABLET.EC PO SCH (10:30)
[2019-10-12] MEDS: ENOXAPARIN NA (PORCINE) 40 MG/0.4 ML DISP.SYRIN SQ SCH (10:31)
[2019-10-12] MEDS: DOLUTEGRAVIR SODIUM 50 MG TABLET (NON-FORMULARY) PO SCH (10:31)
[2019-10-12] MEDS: EMTRICITABINE/TENOFOV ALAFENAM (DESCOVY) TABLET PO SCH (10:32)
[2019-10-12] MEDS: VANCOMYCIN 1,250 MG in DEXTROSE 5%-WATER - 250 ML IVPB SCH ×2 (11:24→22:29)
--- NOTE | 2019-10-12 11:59 | CON.CARD ---
Consult Consult Specialty:: Cardiology Referred by:: Medicine Reason for Consultation:: bacteremia - History of Present Illness Chief Complaint: short of breath History of Present Illness: 54M h/o HIV on HAART, HBV/HCV, bipolar disorder, IVDU presents from [facility] with fever, cough x 6 days. History mostly obtained from chart as patient is somnolent during exam, he was admitted to [facility] day prior to admission and started on ativan for EtOH detox, sent here for fevers. Denies chest pain, palps, dizziness, dyspnea. - Past Medical History Cardio/Vascular: Yes: HTN Hepatobiliary: Yes: Hepatitis C Infectious Disease: Yes: HIV - Past Surgical History Past Surgical History: Yes: None - Alcohol/Substance Use Hx Alcohol Use: Yes - Smoking History Smoking history: Current every day smoker Have you smoked in the past 12 months: Yes Aproximately how many cigarettes per day: 10 Home Medications - Allergies Allergies/Adverse Reactions: Allergies Allergy/AdvReac Type Severity Reaction Status Date / Time shellfish derived Allergy Severe Hives Verified 10/09/19 11:51 No Known Drug Allergies Allergy Verified 10/09/19 11:51 - Home Medications Home Medications: Ambulatory Orders Dolutegravir Sodium [Tivicay] 50 mg PO DAILY 07/27/18 Emtricitabine/Tenofov Alafenam [Descovy 200-25 mg Tablet (Nf)] 1 each PO DAILY 07/27/18 Silver Sulfadiazine [Silvadene] 20 gm TP BID #1 cream..g. 11/23/18 Aspirin [Aspirin EC] 1 tab PO DAILY 10/11/19 Atorvastatin Ca [Lipitor] 1 tab PO DAILY 10/11/19 Methadone [Dolophine -] 140 mg PO DAILY 10/11/19 Multivitamin [One-Daily Multi-Vitamin] 1 tab PO DAILY 10/11/19 Family Medical History Family History: Unremarkable Review of Systems - Review of Systems Constitutional: reports: No Symptoms Eyes: reports: No Symptoms HENT: reports: No Symptoms Neck: reports: No Symptoms Cardiovascular: reports: No Symptoms Respiratory: reports: No Symptoms Gastrointestinal: reports: No Symptoms Genitourinary: reports: No Symptoms Musculoskeletal: reports: No Symptoms Integumentary: reports: No Symptoms Neurological: reports: No Symptoms Endocrine: reports: No Symptoms Hematology/Lymphatic: reports: No Symptoms Psychiatric: reports: No Symptoms Vital Signs: Vital Signs Temperature 100.3 F H 02/15/20 10:00 Pulse Rate 83 10/12/19 10:00 Respiratory Rate 18 10/12/19 10:00 Blood Pressure 136/84 10/12/19 10:00 O2 Sat by Pulse Oximetry (%) 95 10/11/19 09:00 Constitutional: Yes: Well Nourished, No Distress, Calm Eyes: Yes: Conjunctiva Clear, EOM Intact HENT: Yes: Atraumatic, Normocephalic Neck: Yes: Supple, Trachea Midline Respiratory: Yes: Regular, CTA Bilaterally Gastrointestinal: Yes: Normal Bowel Sounds, Soft Cardiovascular: Yes: Regular Rate and Rhythm JVD: No Musculoskeletal: No: Back Pain Extremities: No: Cold Edema: No Integumentary: No: Jaundice Neurological: Yes: Alert, Oriented, Lethargy Psychiatric: No: Agitated - Other Data Labs, Other Data: CBC, BMP 10/12/19 08:47 10/12/19 08:47 INR, PTT INR 1.28 (0.83-1.09) H 10/10/19 10:50 Assessment/Plan EKG: sinus, IRBBB, no ischemic changes echo 09/2019 no mass/vegetation, nl LV/RV function, tr to mild TR, tr to mild TR , sm pericardial effusion, no echo indications of tamponade chest CT: no PE, klarissa lowr lobe opacity cannot exclude infiltrate, emphysema, several small LLL cystic foci with mild awll thickening, splenomegaly Bacteremia, fever - in setting of IVDU, ID following - repeat cultures pending - TTE no mass or veg, no significant valvular pathology - ?PNA with infiltrate on chest CT - no need for urgent MALVIN - stable from cardiac perspective, no significant valvular pathology. consider MALVIN if cultures do not clear on abx alt mental status, acute metabolic encephalopathy - likely 2/2 ativan, methadone - manage per detox HIV - on HAART, manage per ID
--- NOTE | 2019-10-12 15:36 | PN ---
Progress Note (short form) - Note Progress Note: SUBJECTIVE: Feels better. No CP/palpitations. No abdominal pain/nausea/ vomiting. OBJECTIVE: Ongoing fever. Tmax 102.5. Hemodynamically Stable. Ongoing mild tremor of outstretched extremities. Last Vital Signs Temp Pulse Resp BP Pulse Ox 100.3 F H 83 18 136/84 100 10/12/19 10:00 10/12/19 10:00 10/12/19 10:00 10/12/19 10:10/12/19 09:00 Heart - S1, S2, RRR Lungs - Clear to auscultation Abdomen - soft, non-tender. Bowel Sound normal. Extremities - No edema, no calf tenderness. Mild swelling/tenderness L index finger. No evidence of cellulitis currently. Venous stasis skin changes LEs. Neuro - AAO x 3. Tone/Power normal. Laboratory Results - last 24 hr 10/10/19 10/12/19 10/12/19 10:50 08:47 08:47 WBC 4.9 RBC 3.59 L Hgb 9.9 L Hct 29.2 L MCV 81.2 MCH 27.5 MCHC 33.9 RDW 14.2 Plt Count 159 MPV 7.8 D Sodium 134 L Potassium 3.8 Chloride 99 Carbon Dioxide 30 Anion Gap 5 L BUN 12.9 Creatinine 1.1 Est GFR (CKD-EPI)AfAm 86.52 Est GFR (CKD-EPI)NonAf 74.65 Random Glucose 78 Calcium 8.5 Phosphorus 3.6 Magnesium 2.2 1.9 Total Bilirubin 0.5 AST 36 ALT 23 Alkaline Phosphatase 104 LD Total 235 Total Protein 8.3 H Albumin 2.7 L Vancomycin Pre-Dose 10/12/19 09:50 WBC RBC Hgb Hct MCV MCH MCHC RDW Plt Count MPV Sodium Potassium Chloride Carbon Dioxide Anion Gap BUN Creatinine Est GFR (CKD-EPI)AfAm Est GFR (CKD-EPI)NonAf Random Glucose Calcium Phosphorus Magnesium Total Bilirubin AST ALT Alkaline Phosphatase LD Total Total Protein Albumin Vancomycin Pre-Dose 12.8 L Current Medications Generic Name Dose Route Start Last Admin Trade Name Freq PRN Reason Stop Dose Admin Acetaminophen 650 mg 10/10/19 17:28 10/12/19 01:31 Tylenol - PO 650 mg Q6H PRN Administration Fever Aspirin 81 mg 10/11/19 15:30 02/15/20 10:30 Ecotrin - PO 81 mg DAILY ELIGIO Administration Atorvastatin Calcium 20 mg 10/11/19 16:30 10/11/19 16:39 Lipitor - PO 20 mg HS ELIGIO Administration Enoxaparin Sodium 40 mg 10/12/19 10:00 10/12/19 10:31 Lovenox - SQ 40 mg DAILY ELIGIO Administration Folic Acid 1 mg 10/11/19 10:00 10/12/19 10:30 Folic Acid - PO 1 mg DAILY ELIGIO Administration Sodium Chloride 1,000 mls @ 100 mls/hr 10/10/19 18:00 10/12/19 01:21 Normal Saline - IV Not Given ASDIR ELIGIO Vancomycin HCl 1,250 mg/ 250 mls @ 166.667 mls/hr 10/11/19 10:00 10/12/19 11: 24 Dextrose IVPB 166.667 mls/hr BID ELIGIO Administration Protocol Piperacillin Sod/Tazobactam 50 mls @ 100 mls/hr 10/11/19 18:00 10/12/19 10:30 Sod 3.375 gm/ Dextrose IVPB 100 mls/hr Q8H-IV ELIGIO Administration Protocol Lorazepam 0.5 mg 10/13/19 05:00 Ativan - PO 10/13/19 23:01 Q6H ELIGIO Lorazepam 0.5 mg 10/13/19 00:00 Ativan - PO 10/14/19 00:00 Q4H PRN Symptoms of Withdrawal Lorazepam 0.5 mg 10/14/19 05:00 Ativan - PO 10/14/19 05:01 ONCE ONE Lorazepam 1 mg 10/12/19 05:00 10/12/19 12:39 Ativan - PO 10/12/19 23:01 1 mg 0500,1100,1700,2300 ELIGIO Administration Lorazepam 1 mg 10/10/19 14:54 Ativan - PO 10/12/19 23:59 Q4H PRN Symptoms of Withdrawal Methadone HCl 40 mg/ Methadone 70 mg 10/12/19 06:00 10/12/19 08:37 HCl 30 mg PO 70 mg DAILY@0600 ELIGIO Administration Multivitamins/Minerals/Vitamin C 1 tab 10/11/19 10:00 10/12/19 10:30 Tab-A-Vit - PO 1 tab DAILY ELIGIO Administration Silver Sulfadiazine 1 applic 10/10/19 22:00 10/12/19 10:32 Silvadene - TP 1 applic BID ELIGIO Administration Thiamine HCl 100 mg 10/11/19 10:00 10/12/19 10:30 Vitamin B1 - PO 100 mg DAILY ELIGIO Administration Home Medications Medication Instructions Recorded Dolutegravir Sodium [Tivicay] 50 mg PO DAILY 07/27/18 Emtricitabine/Tenofov Alafenam 1 each PO DAILY 07/27/18 [Descovy 200-25 mg Tablet (Nf)] Silver Sulfadiazine [Silvadene] 20 gm TP BID #1 cream..g. 11/23/18 Aspirin [Aspirin EC] 1 tab PO DAILY 10/11/19 Atorvastatin Ca [Lipitor] 1 tab PO DAILY 10/11/19 Methadone [Dolophine -] 140 mg PO DAILY 10/11/19 Multivitamin [One-Daily 1 tab PO DAILY 10/11/19 Multi-Vitamin] ASSESSMENT AND PLAN: 54 year old male histor of HIV (on HAART), IVDU (injects cocaine), Alcohol excess, HBV/HCV (s/p treatment), Bipolar Disorder, transferred from [facility] ( where he was undergoing alcohol detox with Ativan) due to fever and non- productive cough. 1. Acute Hypoxic Respiratory Failure, etiology unclear ?sec to Ativan for alcohol withdrawal - resolved, now SpO2 100% on RA CXR - no acute cardiopulmonary findings CTA Chest - emphysematous changes, no PE, bibasal atelectasis Will monitor. 2. Fever secondary to Bacteremia in IV drug user - persisting fever Blood Cx - MRSA x 2, gram pos cocci in 2 others, awaiting final ID and Sens. TTE - no Endocarditis. Flu negative. IV Zosyn/Vanco continued as per ID Cardio evaluated for MALVIN - recommend no need for MALVIN. Will get second opinion. ID following. 3. Acute Toxic Encephalopathy sec to ? alcohol withdrawal vs Ativan given for Alcohol Withdrawal +/- Methadone - resolved. CT Head - no acute findings. Mild to moderate ventricular dilatation and volume loss. Mental status improving, now AAO x 3. 4. Polysubstance Abuse (IV injection of cocaine, Alcohol, prior Heroin) - on Methadone, resumed. Addiction Medicine consulted - to continue Ativan detox protocol MVI, Thiamine, Folic Acid. 4. HIV - resumed on HAART ID following. DVT Px - Lovenox SQ. Visit type - Emergency Visit Emergency Visit: Yes ED Registration Date: 10/10/19 Care time: The patient presented to the Emergency Department on the above date and was hospitalized for further evaluation of their emergent condition. - New Patient This patient is new to me today: No - Critical Care Critical Care patient: No - Discharge Referral Referred to [facility] Med P.C.: No
[2019-10-12] MEDS ORDERED: DEXTROSE 5%-WATER - 100 ML IVPB ONE (17:03)
--- NOTE | 2019-10-12 17:23 | EKG ---
Test Reason : Blood Pressure : / mmHG Vent. Rate : 071 BPM Atrial Rate : 071 BPM P-R Int : 136 ms QRS Dur : 106 ms QT Int : 426 ms P-R-T Axes : 036 -12 018 degrees QTc Int : 462 ms NORMAL SINUS RHYTHM WITH SINUS ARRHYTHMIA RSR' OR QR PATTERN IN V1 SUGGESTS RIGHT VENTRICULAR CONDUCTION DELAY NORMAL ECG NO PREVIOUS ECGS AVAILABLE BASELINE ARTIFACT Confirmed by LESLI KELSEY, NEMESIO ([id number]) on 10/12/2019 5:23:35 PM Referred By: Confirmed By:NEMESIO BALLESTEROS MD
--- NOTE | 2019-10-12 19:10 | PN ---
Progress Note, Physician Chief Complaint: AWAKE BUT LETHARGIC SEATED IN BED REMAINS FEBRILE - Current Medication List Current Medications: Active Medications Acetaminophen (Tylenol -) 650 mg PO Q6H PRN PRN Reason: Fever Last Admin: 10/12/19 14:15 Dose: 650 mg Aspirin (Ecotrin -) 81 mg PO DAILY [facility] Last Admin: 10/12/19 10:30 Dose: 81 mg Atorvastatin Calcium (Lipitor -) 20 mg PO HS [facility] Last Admin: 10/11/19 16:39 Dose: 20 mg Enoxaparin Sodium (Lovenox -) 40 mg SQ DAILY [facility] Last Admin: 10/12/19 10:31 Dose: 40 mg Folic Acid (Folic Acid -) 1 mg PO DAILY [facility] Last Admin: 10/12/19 10:30 Dose: 1 mg Sodium Chloride (Normal Saline -) 1,000 mls @ 100 mls/hr IV ASDIR [facility] Last Admin: 10/12/19 01:21 Dose: Not Given Vancomycin HCl 1,250 mg/ (Dextrose) 250 mls @ 166.667 mls/hr IVPB BID [facility]; Protocol Last Admin: 10/12/19 11:24 Dose: 166.667 mls/hr Piperacillin Sod/Tazobactam (Sod 3.375 gm/ Dextrose) 50 mls @ 100 mls/hr IVPB Q8H-IV [facility]; Protocol Last Admin: 10/12/19 18:00 Dose: 100 mls/hr Lorazepam (Ativan -) 0.5 mg PO Q6H [facility] Stop: 10/13/19 23:01 Lorazepam (Ativan -) 0.5 mg PO Q4H PRN PRN Reason: Symptoms of Withdrawal Stop: 10/14/19 00:00 Lorazepam (Ativan -) 0.5 mg PO ONCE ONE Stop: 10/14/19 05:01 Lorazepam (Ativan -) 1 mg PO 0500,1100,1700,2300 [facility] Stop: 10/12/19 23:01 Last Admin: 10/12/19 12:39 Dose: 1 mg Lorazepam (Ativan -) 1 mg PO Q4H PRN PRN Reason: Symptoms of Withdrawal Stop: 10/12/19 23:59 Methadone HCl 40 mg/ Methadone (HCl 30 mg) 70 mg PO DAILY@0600 [facility] Last Admin: 10/12/19 08:37 Dose: 70 mg Multivitamins/Minerals/Vitamin C (Tab-A-Vit -) 1 tab PO DAILY [facility] Last Admin: 10/12/19 10:30 Dose: 1 tab Silver Sulfadiazine (Silvadene -) 1 applic TP BID [facility] Last Admin: 10/12/19 10:32 Dose: 1 applic Thiamine HCl (Vitamin B1 -) 100 mg PO DAILY [facility] Last Admin: 10/12/19 10:30 Dose: 100 mg - Objective Vital Signs: Vital Signs Temperature 100.8 F H 10/12/19 16:00 Pulse Rate 80 10/12/19 16:00 Respiratory Rate 18 10/12/19 16:00 Blood Pressure 125/73 10/12/19 16:00 O2 Sat by Pulse Oximetry (%) 100 10/12/19 09:00 Constitutional: Yes: No Distress Cardiovascular: Yes: Regular Rate and Rhythm, S1, S2 Respiratory: Yes: CTA Bilaterally Gastrointestinal: Yes: Normal Bowel Sounds, Soft Edema: No Labs: CBC, BMP 10/12/19 08:47 10/12/19 08:47 INR, PTT INR 1.28 (0.83-1.09) H 10/10/19 10:50 Assessment/Plan [facility] BACTEREMIA R/O INFECTIOUS ENDOCARDITIS HIV AWAIT BC CONTINUE VANCOMYCIN/ ZOSYN
[2019-10-12] MEDS: ATORVASTATIN CA 20 MG TABLET (FP) PO SCH (22:15)
[2019-10-12] MEDS ORDERED: PT OWN MED DRAWER 7, Y5N ONE (22:21)
[2019-10-13] MEDS ORDERED: LORazepam 0.5 MG TABLET PO PRN
[2019-10-13] MEDS ORDERED: DEXTROSE 5%-WATER - 50 ML IVPB ONE ×3 (02:33→17:16)
[2019-10-13] MEDS ORDERED: PIPERACILLIN/TAZOBACTAM 3.375 GM VIAL IVPB ONE ×3 (02:33→17:16)
[2019-10-13] MEDS: PIPERACILLIN/TAZOB 3.375 GM 3.375 GM in DEXTROSE 5%-WATER - 50 ML IVPB SCH ×2 (02:43→11:00)
[2019-10-13] MEDS: ACETAMINOPHEN 325 MG TABLET (FP) PO PRN ×3 (05:43→21:45)
[2019-10-13] MEDS ORDERED: METHADONE HCL 40 MG DISPERSABLE TABLET ONE (05:54)
[2019-10-13] MEDS ORDERED: METHADONE HCL 10 MG TABLET ONE (05:54)
[2019-10-13] MEDS: METHADONE 40 MG, METHADONE 30 MG PO SCH (05:56)
[2019-10-13] MEDS: LORazepam 0.5 MG TABLET PO SCH ×4 (05:56→23:06)
[2019-10-13] MEDS ORDERED: PT OWN MED DRAWER 7, Y5N ONE (10:32)
[2019-10-13] MEDS: ASPIRIN COATED 81 MG TABLET.EC PO SCH (11:00)
[2019-10-13] MEDS: VANCOMYCIN 1,250 MG in DEXTROSE 5%-WATER - 250 ML IVPB SCH (11:00)
[2019-10-13] MEDS: FOLIC ACID 1 MG TABLET (FP) PO SCH (11:00)
[2019-10-13] MEDS: THIAMINE HCL 100 MG TABLET (FP) PO SCH (11:00)
[2019-10-13] MEDS: EMTRICITABINE/TENOFOV ALAFENAM (DESCOVY) TABLET PO SCH (11:00)
[2019-10-13] MEDS: DOLUTEGRAVIR SODIUM 50 MG TABLET (NON-FORMULARY) PO SCH (11:00)
[2019-10-13] MEDS: MULTIVITAMINS (DAILY MVI) TABLET (FP) PO SCH (11:00)
[2019-10-13] MEDS: ENOXAPARIN NA (PORCINE) 40 MG/0.4 ML DISP.SYRIN SQ SCH (11:00)
[2019-10-13] MEDS: SILVER SULFADIAZINE 1% TOP CREAM 50 GM JAR TP SCH ×2 (11:00→21:45)
--- NOTE | 2019-10-13 11:38 | PN ---
Progress Note (short form) - Note Progress Note: s: lethargic, not answering questions. febrile overnight. Current Medications Acetaminophen (Tylenol -) 650 mg PO Q6H PRN PRN Reason: Fever Last Admin: 10/13/19 05:43 Dose: 650 mg Aspirin (Ecotrin -) 81 mg PO DAILY [facility] Last Admin: 10/13/19 11:00 Dose: 81 mg Atorvastatin Calcium (Lipitor -) 20 mg PO HS [facility] Last Admin: 10/12/19 22:15 Dose: 20 mg Enoxaparin Sodium (Lovenox -) 40 mg SQ DAILY [facility] Last Admin: 10/13/19 11:00 Dose: 40 mg Folic Acid (Folic Acid -) 1 mg PO DAILY [facility] Last Admin: 10/13/19 11:00 Dose: 1 mg Sodium Chloride (Normal Saline -) 1,000 mls @ 100 mls/hr IV ASDIR [facility] Last Admin: 10/12/19 22:46 Dose: 100 mls/hr Vancomycin HCl 1,250 mg/ (Dextrose) 250 mls @ 166.667 mls/hr IVPB BID [facility]; Protocol Last Admin: 10/13/19 11:00 Dose: 166.667 mls/hr Piperacillin Sod/Tazobactam (Sod 3.375 gm/ Dextrose) 50 mls @ 100 mls/hr IVPB Q8H-IV [facility]; Protocol Last Admin: 10/13/19 11:00 Dose: 100 mls/hr Lorazepam (Ativan -) 0.5 mg PO Q6H [facility] Stop: 10/13/19 23:01 Last Admin: 10/13/19 11:01 Dose: 0.5 mg Lorazepam (Ativan -) 0.5 mg PO Q4H PRN PRN Reason: Symptoms of Withdrawal Stop: 10/14/19 00:00 Lorazepam (Ativan -) 0.5 mg PO ONCE ONE Stop: 10/14/19 05:01 Methadone HCl 40 mg/ Methadone (HCl 30 mg) 70 mg PO DAILY@0600 [facility] Last Admin: 10/13/19 05:56 Dose: 70 mg Multivitamins/Minerals/Vitamin C (Tab-A-Vit -) 1 tab PO DAILY [facility] Last Admin: 10/13/19 11:00 Dose: 1 tab Silver Sulfadiazine (Silvadene -) 1 applic TP BID [facility] Last Admin: 10/13/19 11:00 Dose: 1 applic Thiamine HCl (Vitamin B1 -) 100 mg PO DAILY [facility] Last Admin: 10/13/19 11:00 Dose: 100 mg Vital Signs Period Temp Pulse Resp BP Sys/Dawson Pulse Ox Last 24 Hr 98.9 F-104.7 F 74-86 18-18 122-138/68-84 96 Constitutional: Yes: Well Nourished, No Distress, Calm Eyes: Yes: Conjunctiva Clear, EOM Intact HENT: Yes: Atraumatic, Normocephalic Neck: Yes: Supple, Trachea Midline Respiratory: Yes: Regular, CTA Bilaterally Gastrointestinal: Yes: Normal Bowel Sounds, Soft Cardiovascular: Yes: Regular Rate and Rhythm JVD: No Musculoskeletal: No: Back Pain Extremities: No: Cold Edema: No Integumentary: No: Jaundice Neurological: Yes: Alert, Oriented, Lethargy Psychiatric: No: Agitated Assessment/Plan EKG: sinus, IRBBB, no ischemic changes echo 09/2019 no mass/vegetation, nl LV/RV function, tr to mild TR, tr to mild TR , sm pericardial effusion, no echo indications of tamponade chest CT: no PE, klarissa lowr lobe opacity cannot exclude infiltrate, emphysema, several small LLL cystic foci with mild wall thickening, splenomegaly Bacteremia, fever - in setting of IVDU, ID following - + MRSA, repeat cultures pending - TTE no mass or veg, no significant valvular pathology - ?PNA with infiltrate on chest CT - MALVIN if cultures do not clear on abx or no clear infectious source - remains febrile, d/w hospitalist, considering transfer to tertiary care center for further workup alt mental status, acute metabolic encephalopathy - likely 2/2 ativan, methadone - manage per detox HIV - on HAART, manage per ID
[2019-10-13 13:51] LABS: BASO % 0.8 % (0-2.0); EOS % 0.7 % (0-4.5); HEMATOCRIT 28.8 % (35.4-49); HEMOGLOBIN 9.7 GM/dL (11.7-16.9); MCH 27.5 pg (25.7-33.7); MCHC 33.6 g/dl (32.0-35.9); MEAN PLT VOLUME 7.8 fl (7.5-11.1); MONO % 24.2 % (3.8-10.2); NEUT % 54.3 % (42.8-82.8); PLATELET COUNT 174 K/MM3 (134-434); RBC 3.51 M/mm3 (4.00-5.60); RDW 14.2 % (11.9-15.9); WHITE BLOOD COUNT 4.8 K/mm3 (4.0-10.0)
[2019-10-13 14:17] LABS: ALBUMIN 2.5 g/dl (3.4-5.0); BILIRUBIN,TOTAL 0.4 mg/dL (0.2-1); BLOOD UREA NITROGEN 11.4 mg/dL (7-18); CALCIUM 8.3 mg/dL (8.5-10.1); MAGNESIUM 1.9 mg/dL (1.8-2.4); PHOSPHOROUS 3.9 mg/dL (2.5-4.9); POTASSIUM 3.7 mmol/L (3.5-5.1); TOT PROT 7.9 g/dl (6.4-8.2)
[2019-10-13 14:51] LABS: ANISOCYTOSIS 0; MACROCYTOSIS 0; PLATELET ESTIMATE NORMAL
--- NOTE | 2019-10-13 15:07 | DS ---
Physical Exam: SUBJECTIVE: Fever overnight. No CP/palpitations/lightheadedness. No abdominal pain/nausea/vomiting. OBJECTIVE: Ongoing fever. Tmax 104.7. Hemodynamically Stable. Ongoing mild tremor of outstretched extremities. Last Vital Signs Temp Pulse Resp BP Pulse Ox 98.9 F 74 18 122/84 98 10/13/19 10:48 10/13/19 10:48 10/13/19 10:48 10/13/19 10:48 10/13/19 09:00 Heart - S1, S2, RRR Lungs - Clear to auscultation Abdomen - soft, non-tender. Bowel Sound normal. Extremities - Chronic venous stasis skin changes LEs with swelling and medial malleolus ulcer LLE. Swelling L>R . No evidence of cellulitis currently. Neuro - AAO x 3. Tone/Power normal. Laboratory Results - last 24 hr 10/13/19 10/13/19 12:50 12:50 WBC 4.8 RBC 3.51 L Hgb 9.7 L Hct 28.8 L MCV 82.0 MCH 27.5 MCHC 33.6 RDW 14.2 Plt Count 174 MPV 7.8 Absolute Neuts (auto) 2.6 Neutrophils % 54.3 Neutrophils % (Manual) 69.7 D Band Neutrophils % 1.0 Lymphocytes % 20.0 D Lymphocytes % (Manual) 16.2 Monocytes % 24.2 H Monocytes % (Manual) 8 Eosinophils % 0.7 D Eosinophils % (Manual) 2.0 D Basophils % 0.8 Basophils % (Manual) 0.0 Myelocytes % (Man) 1 D Promyelocytes % (Man) 0 Blast Cells % (Manual) 0 Nucleated RBC % 0 Metamyelocytes 1 D Hypochromia 0 Platelet Estimate Normal Polychromasia 0 Poikilocytosis 0 Anisocytosis 0 Microcytosis 0 Macrocytosis 0 Sodium 136 Potassium 3.7 Chloride 101 Carbon Dioxide 29 Anion Gap 6 L BUN 11.4 Creatinine 1.0 Est GFR (CKD-EPI)AfAm 97.08 Est GFR (CKD-EPI)NonAf 83.76 Random Glucose 117 H Calcium 8.3 L Phosphorus 3.9 Magnesium 1.9 Total Bilirubin 0.4 AST 35 ALT 27 Alkaline Phosphatase 100 Total Protein 7.9 Albumin 2.5 L Discharge Medications Medication Instructions Recorded Dolutegravir Sodium [Tivicay] 50 mg PO DAILY 07/27/18 Emtricitabine/Tenofov Alafenam 1 each PO DAILY 07/27/18 [Descovy 200-25 mg Tablet (Nf)] Silver Sulfadiazine [Silvadene] 20 gm TP BID #1 cream..g. 11/23/18 Aspirin [Aspirin EC] 1 tab PO DAILY 10/11/19 Atorvastatin Ca [Lipitor] 1 tab PO DAILY 10/11/19 Multivitamin [One-Daily 1 tab PO DAILY 10/11/19 Multi-Vitamin] Folic Acid - 1 mg PO DAILY tablet 10/13/19 LORazepam [Ativan] 0.5 mg PO Q4H PRN tablet MDD 2mg 10/13/19 LORazepam [Ativan] 0.5 mg PO Q6H tablet MDD 2mg 10/13/19 Methadone [Dolophine -] 70 mg PO DAILY@0600 tablet MDD 10/13/19 70mg Multivitamins [Multivit ([facility] 1 tab PO DAILY tab 10/13/19 Formulary)] Piperacillin/Tazob 3.375 gm [Zosyn 3.375 gm IVPB Q8H-IV vial 10/13/19 -] Thiamine HCl [Vitamin B1 -] 100 mg PO DAILY tablet 10/13/19 Vancomycin 1,250 mg IVPB BID vial 10/13/19 Date of Admission:10/10/19 Date of Discharge: 10/13/19 Minutes to complete discharge: 45 Discharge Summary Problems reviewed: Yes Reason For Visit: ACUTE RESPIRATORY FAILURE,OPIOID OVERDOSE Current Active Problems Acute respiratory failure (Acute) MRSA bacteremia (Acute) Opioid overdose (Acute) Hospital Course: 54 year old male histor of HIV (on HAART), IVDU (injects cocaine), Alcohol excess, HBV/HCV (s/p treatment), Bipolar Disorder, transferred from [facility] ( where he was undergoing alcohol detox with Ativan) due to fever and non- productive cough. 1. Acute Hypoxic Respiratory Failure, etiology unclear ?sec to Ativan for alcohol withdrawal - resolved, now SpO2 100% on RA CXR - no acute cardiopulmonary findings CTA Chest - emphysematous changes, no PE, bibasal atelectasis Will continue to monitor. 2. Fever secondary to Bacteremia in IV drug user - persisting fever Tmax 104.7 overnight. Hemodynamically Stable. Blood Cx - MRSA x 4 TTE - no Endocarditis. Flu negative. IV Zosyn/Vanco continued as per ID Cardio evaluated for MALVIN - agree with transfer to [facility] for MALVIN. Accepted by Dr. bryan at [facility] medicine transfer for Cardiology evaluation for timely MALVIN. 3. Acute Toxic Encephalopathy sec to ? alcohol withdrawal vs Ativan given for Alcohol Withdrawal +/- Methadone - resolved. CT Head - no acute findings. Mild to moderate ventricular dilatation and volume loss. Mental status improving, now AAO x 3. Day 3 Ativan as per withdrawal protocol. Resumed on half regular dose of Methadone 70mg (normally on 140mg) - doing well from withdrawal perspective. 4. Polysubstance Abuse (IV injection of cocaine, Alcohol, prior Heroin) - on Methadone, resumed. Addiction Medicine consulted - to continue Ativan detox protocol MVI, Thiamine, Folic Acid. 5. HIV - resumed on HAART ID following. Medically optimized for transfer to [facility] for further Cardiology evaluation for MALVIN. Condition: Guarded - Instructions Diet, Activity, Other Instructions: Transferred from [facility] Detox facility where he was undergoing alcohol detox for fever. Blood Cultures positive x 5 for MRSA Bacteremia. Ongoing fevers. For transfer to [facility] under care of Dr. Bryan for Cardiology eval for Transesophageal Echo. Currently on IV Vanco/Zosyn. Hemodynamically stable. he is on Day 3 of alcohol withdrawal detox Ativan per Protocol. Disposition: TRANSFER ACUTE CARE/OTHER HOSP - Home Medications Comprehensive Discharge Medication List: Ambulatory Orders Dolutegravir Sodium [Tivicay] 50 mg PO DAILY 07/27/18 Emtricitabine/Tenofov Alafenam [Descovy 200-25 mg Tablet (Nf)] 1 each PO DAILY 07/27/18 Silver Sulfadiazine [Silvadene] 20 gm TP BID #1 cream..g. 11/23/18 Aspirin [Aspirin EC] 1 tab PO DAILY 10/11/19 Atorvastatin Ca [Lipitor] 1 tab PO DAILY 10/11/19 Multivitamin [One-Daily Multi-Vitamin] 1 tab PO DAILY 10/11/19 Folic Acid - 1 mg PO DAILY tablet 10/13/19 LORazepam [Ativan] 0.5 mg PO Q4H PRN tablet MDD 2mg 10/13/19 LORazepam [Ativan] 0.5 mg PO Q6H tablet MDD 2mg 10/13/19 Methadone [Dolophine -] 70 mg PO DAILY@0600 tablet MDD 70mg 10/13/19 Multivitamins [Multivit ([facility] Formulary)] 1 tab PO DAILY tab 10/13/19 Piperacillin/Tazob 3.375 gm [Zosyn -] 3.375 gm IVPB Q8H-IV vial 10/13/19 Thiamine HCl [Vitamin B1 -] 100 mg PO DAILY tablet 10/13/19 Vancomycin 1,250 mg IVPB BID vial 10/13/19 This patient is new to me today: No Emergency Visit: Yes ED Registration Date: 10/10/19 Care time: The patient presented to the Emergency Department on the above date and was hospitalized for further evaluation of their emergent condition. Critical Care patient: No - Discharge Referral Referred to [facility] No
--- NOTE | 2019-10-13 17:14 | PN ---
Progress Note, Physician Chief Complaint: OOB IN CHAIR REMAINS FEBRILE REPEAT BC + GPCCL - Current Medication List Current Medications: Active Medications Acetaminophen (Tylenol -) 650 mg PO Q6H PRN PRN Reason: Fever Last Admin: 10/13/19 15:18 Dose: 650 mg Aspirin (Ecotrin -) 81 mg PO DAILY [facility] Last Admin: 10/13/19 11:00 Dose: 81 mg Atorvastatin Calcium (Lipitor -) 20 mg PO HS [facility] Last Admin: 10/12/19 22:15 Dose: 20 mg Enoxaparin Sodium (Lovenox -) 40 mg SQ DAILY [facility] Last Admin: 10/13/19 11:00 Dose: 40 mg Folic Acid (Folic Acid -) 1 mg PO DAILY [facility] Last Admin: 10/13/19 11:00 Dose: 1 mg Sodium Chloride (Normal Saline -) 1,000 mls @ 100 mls/hr IV ASDIR [facility] Last Admin: 10/12/19 22:46 Dose: 100 mls/hr Vancomycin HCl 1,250 mg/ (Dextrose) 250 mls @ 166.667 mls/hr IVPB BID [facility]; Protocol Last Admin: 10/13/19 11:00 Dose: 166.667 mls/hr Piperacillin Sod/Tazobactam (Sod 3.375 gm/ Dextrose) 50 mls @ 100 mls/hr IVPB Q8H-IV [facility]; Protocol Last Admin: 10/13/19 11:00 Dose: 100 mls/hr Lorazepam (Ativan -) 0.5 mg PO Q6H [facility] Stop: 10/13/19 23:01 Last Admin: 10/13/19 11:01 Dose: 0.5 mg Lorazepam (Ativan -) 0.5 mg PO Q4H PRN PRN Reason: Symptoms of Withdrawal Stop: 10/14/19 00:00 Lorazepam (Ativan -) 0.5 mg PO ONCE ONE Stop: 10/14/19 05:01 Methadone HCl 40 mg/ Methadone (HCl 30 mg) 70 mg PO DAILY@0600 [facility] Last Admin: 10/13/19 05:56 Dose: 70 mg Multivitamins/Minerals/Vitamin C (Tab-A-Vit -) 1 tab PO DAILY [facility] Last Admin: 10/13/19 11:00 Dose: 1 tab Silver Sulfadiazine (Silvadene -) 1 applic TP BID [facility] Last Admin: 10/13/19 11:00 Dose: 1 applic Thiamine HCl (Vitamin B1 -) 100 mg PO DAILY [facility] Last Admin: 10/13/19 11:00 Dose: 100 mg - Objective Vital Signs: Vital Signs Temperature 98.1 F 10/13/19 14:00 Pulse Rate 75 10/13/19 14:00 Respiratory Rate 18 10/13/19 14:00 Blood Pressure 151/80 10/13/19 14:00 O2 Sat by Pulse Oximetry (%) 98 10/13/19 09:00 Constitutional: Yes: No Distress Cardiovascular: Yes: Regular Rate and Rhythm, S1, S2 Respiratory: Yes: CTA Bilaterally Gastrointestinal: Yes: Normal Bowel Sounds, Soft Labs: CBC, BMP 10/13/19 12:50 10/13/19 12:50 INR, PTT INR 1.28 (0.83-1.09) H 10/10/19 10:50 Assessment/Plan [facility] BACTEREMIA R/O INFECTIOUS ENDOCARDITIS REPEAT BC + HIV+ CD4 417 SUBSTITUTE DAPTOMYCIN 8MG/KG Q24H
[2019-10-13] MEDS ORDERED: SODIUM CHLORIDE IVPB SCH (18:00)
[2019-10-13] MEDS ORDERED: DAPTOMYCIN IVPB SCH (18:00)
[2019-10-14 01:31] VITALS: BP 149/78; PULSE 71; TEMP 98.5
[2019-10-14] MEDS ORDERED: LORazepam 0.5 MG TABLET PO ONE (05:00)
== END 2019-10-14 00:50 | disposition short-term general hospital (02) | DRG 724 ==
LOC: JER 08:53 → JERBED 11:19 → J5S 16:17
PROC: HZ2ZZZZ Detoxification Services for Substance Abuse Treatment (ICD-10-PCS; principal; 2019-10-11)
DX: A49.02 Methicillin resistant Staphylococcus aureus infection, unspecified site (principal); J96.00 Acute respiratory failure, unspecified whether with hypoxia or hypercapnia; F10.239 Alcohol dependence with withdrawal, unspecified; F19.20 Other psychoactive substance dependence, uncomplicated; I31.3 Pericardial effusion (noninflammatory); F11.90 Opioid use, unspecified, uncomplicated; Z21 Asymptomatic human immunodeficiency virus [HIV] infection status; J96.01 Acute respiratory failure with hypoxia; G92 Toxic encephalopathy; F17.210 Nicotine dependence, cigarettes, uncomplicated
CPT/HCPCS: 36415; 70450-TC; 71045-TC-FY; 71275-TC; 76705-TC; 80053; 80307; 81003; 82565; 82803; 83605; 83615; 83735; 83935; 84100; 84300; 84484; 85025; 85027; 85610; 85730; 86359; 86360; 87040; 87086; 87186; 87804; 93005; 93010; 93306-TC; 93971-TC; 97116-GP; 97161-GP; 99285-25; G0480; J0878; J1644; J7030; Q9967

== ENCOUNTER 2021-09-23 13:59 | Inpatient (IN) | payer OTHER ==
[2021-09-23] MEDS ORDERED: METHOCARBAMOL 500 MG TABLET PO PRN (14:17)
[2021-09-23] MEDS ORDERED: MAGNESIUM CITRATE 300 ML BOTTLE PO PRN (14:17)
[2021-09-23] MEDS ORDERED: IBUPROFEN 400 MG TABLET (FP) PO PRN (14:17)
[2021-09-23] MEDS ORDERED: MENTHOL/PHENOL 1 EACH UD MM PRN (14:17)
[2021-09-23] MEDS ORDERED: MAG HYDROX/AL HYDROX/SIMETH 30 ML UNIT-DOSE CUP PO PRN (14:17)
[2021-09-23] MEDS ORDERED: ONDANSETRON *ODT* 4 MG TABLET SL PRN (14:17)
[2021-09-23] MEDS ORDERED: BISMUTH SUBSALICYLATE 262 MG/15 ML BTL PO PRN (14:17)
[2021-09-23] MEDS ORDERED: MAGNESIUM HYDROX 2400MG/30ML ORAL SUSPENSION 30 ML CUP PO PRN (14:17)
[2021-09-23] MEDS ORDERED: ACETAMINOPHEN 325 MG TABLET (FP) PO PRN ×2 (14:17)
[2021-09-23 15:04] VITALS: BMI 22.4
[2021-09-23] MEDS: PRENATAL VITAMINS W/ FOLIC ACID TABLET (FP) PO SCH (18:56)
[2021-09-23] MEDS: NICOTINE 7 MG/24 HOURS TOPICAL PATCH TD SCH (18:56)
[2021-09-23] MEDS: hydrOXYzine PAMOATE 25 MG CAPSULE (FP) PO SCH ×2 (18:57→22:06)
[2021-09-23] MEDS: NICOTINE 10 MG CARTRIDGE (INHALER) IH PRN (19:07)
[2021-09-23] MEDS ORDERED: THIAMINE HCL 100 MG TABLET (FP) PO SCH (22:00)
[2021-09-23] MEDS ORDERED: MELATONIN 5 MG TABLETS PO SCH (22:00)
[2021-09-24] MEDS: hydrOXYzine PAMOATE 25 MG CAPSULE (FP) PO SCH ×3 (05:40→13:48)
[2021-09-24] MEDS: PRENATAL VITAMINS W/ FOLIC ACID TABLET (FP) PO SCH (09:55)
[2021-09-24] MEDS: NICOTINE 7 MG/24 HOURS TOPICAL PATCH TD SCH (09:56)
[2021-09-24] MEDS ORDERED: methaDONE HCL 40 MG DISPERSABLE TABLET PO SCH (10:00)
[2021-09-24 10:31] LABS: HEMATOCRIT 33.3 % (35.4-49); HEMOGLOBIN 10.4 GM/dL (11.7-16.9); MCH 23.8 pg (25.7-33.7); MCHC 31.3 g/dl (32.0-35.9); MEAN CELL VOLUME 75.9 fl (80-96); MEAN PLT VOLUME 8.3 fl (7.5-11.1); PLATELET COUNT 223 10^3/uL (134-434); RBC 4.39 M/mm3 (4.00-5.60); WHITE BLOOD COUNT 3.7 K/mm3 (4.0-10.0)
[2021-09-24 10:50] LABS: ALBUMIN 3.2 g/dl (3.4-5.0)
[2021-09-24 10:51] LABS: BLOOD UREA NITROGEN 16.1 mg/dL (7-18)
[2021-09-24 10:53] LABS: CREATININE 1.4 mg/dL (0.55-1.3)
[2021-09-24 10:55] LABS: BILIRUBIN,TOTAL 0.3 mg/dL (0.2-1); TOT PROT 9.1 g/dl (6.4-8.2)
[2021-09-24] MEDS: NICOTINE 10 MG CARTRIDGE (INHALER) IH PRN (11:50)
[2021-09-24 13:29] VITALS: BP 114/76; PULSE 65; TEMP 98.1
[2021-09-24] MEDS: CEPHALEXIN MONOHYDRATE 500 MG CAPSULE (UD) PO SCH ×2 (13:47→13:50)
[2021-09-24] MEDS: KETOCONAZOLE 2% TOPICAL CREAM 15 GM TUBE TP SCH ×2 (13:48→13:50)
== END 2021-09-24 13:58 | disposition other institution (70) | DRG 773 ==
LOC: YASAS 13:59 → Y3N 18:22 → UNDOADMIN 18:22
PROVIDERS: ADMIT Allergy & Immunology; ATTEND Allergy & Immunology
PROC: HZ2ZZZZ Detoxification Services for Substance Abuse Treatment (ICD-10-PCS; principal; 2021-09-23)
DX: F10.230 Alcohol dependence with withdrawal, uncomplicated (principal); F11.20 Opioid dependence, uncomplicated; F14.20 Cocaine dependence, uncomplicated; F17.210 Nicotine dependence, cigarettes, uncomplicated; F31.9 Bipolar disorder, unspecified; F19.24 Other psychoactive substance dependence with psychoactive substance-induced mood disorder; Z21 Asymptomatic human immunodeficiency virus [HIV] infection status; B19.10 Unspecified viral hepatitis B without hepatic coma; D50.9 Iron deficiency anemia, unspecified; I10 Essential (primary) hypertension; L97.321 Non-pressure chronic ulcer of left ankle limited to breakdown of skin; L03.116 Cellulitis of left lower limb; Z86.19 Personal history of other infectious and parasitic diseases; Z91.51 Personal history of suicidal behavior
CPT/HCPCS: 36415; 80053; 85027; 86780; 93005; 93010; C9803; U0003; U0005

== ENCOUNTER 2021-09-24 14:26 | Inpatient (IN) | payer OTHER ==
[2021-09-24] MEDS ORDERED: MAGNESIUM CITRATE 300 ML BOTTLE PO PRN (15:35)
[2021-09-24] MEDS ORDERED: MENTHOL/PHENOL 1 EACH UD MM PRN (15:35)
[2021-09-24] MEDS ORDERED: P-EPHED 60MG/TRIPROLIDI 2.5MG TABLET PO PRN (15:35)
[2021-09-24] MEDS ORDERED: MAGNESIUM HYDROX 2400MG/30ML ORAL SUSPENSION 30 ML CUP PO PRN (15:35)
[2021-09-24] MEDS: MELATONIN 5 MG TABLETS PO SCH (21:24)
[2021-09-24] MEDS: CEPHALEXIN MONOHYDRATE 500 MG CAPSULE (UD) PO SCH (21:24)
[2021-09-24] MEDS: THIAMINE HCL 100 MG TABLET (FP) PO SCH (21:24)
[2021-09-25] MEDS: methaDONE HCL 40 MG DISPERSABLE TABLET PO SCH (06:35)
[2021-09-25] MEDS: NICOTINE 7 MG/24 HOURS TOPICAL PATCH TD SCH (10:08)
[2021-09-25] MEDS: PRENATAL VITAMINS W/ FOLIC ACID TABLET (FP) PO SCH (10:08)
[2021-09-25] MEDS: CEPHALEXIN MONOHYDRATE 500 MG CAPSULE (UD) PO SCH ×2 (10:08→21:24)
[2021-09-25] MEDS: NICOTINE 10 MG CARTRIDGE (INHALER) IH PRN (10:09)
[2021-09-25] MEDS: KETOCONAZOLE 2% CREAM - 60GM TUBE TP SCH ×3 (11:33→21:25)
[2021-09-25] MEDS: THIAMINE HCL 100 MG TABLET (FP) PO SCH (21:25)
[2021-09-25] MEDS: MELATONIN 5 MG TABLETS PO SCH (21:25)
[2021-09-26] MEDS: methaDONE HCL 40 MG DISPERSABLE TABLET PO SCH (06:11)
[2021-09-26] MEDS: NICOTINE 10 MG CARTRIDGE (INHALER) IH PRN ×2 (06:15→10:02)
[2021-09-26] MEDS: PRENATAL VITAMINS W/ FOLIC ACID TABLET (FP) PO SCH (10:01)
[2021-09-26] MEDS: KETOCONAZOLE 2% CREAM - 60GM TUBE TP SCH ×2 (10:01→21:25)
[2021-09-26] MEDS: NICOTINE 7 MG/24 HOURS TOPICAL PATCH TD SCH (10:02)
[2021-09-26] MEDS: CEPHALEXIN MONOHYDRATE 500 MG CAPSULE (UD) PO SCH ×2 (10:02→21:23)
[2021-09-26] MEDS: THIAMINE HCL 100 MG TABLET (FP) PO SCH (21:22)
[2021-09-26] MEDS: MELATONIN 5 MG TABLETS PO SCH (21:22)
[2021-09-27] MEDS: ACETAMINOPHEN 325 MG TABLET (FP) PO PRN (01:50)
[2021-09-27] MEDS: NICOTINE 10 MG CARTRIDGE (INHALER) IH PRN (05:55)
[2021-09-27] MEDS: methaDONE HCL 40 MG DISPERSABLE TABLET PO SCH (05:55)
[2021-09-27] MEDS: CEPHALEXIN MONOHYDRATE 500 MG CAPSULE (UD) PO SCH ×2 (09:52→21:04)
[2021-09-27] MEDS: NICOTINE 7 MG/24 HOURS TOPICAL PATCH TD SCH (09:52)
[2021-09-27] MEDS: KETOCONAZOLE 2% CREAM - 60GM TUBE TP SCH ×2 (09:52→21:04)
[2021-09-27] MEDS: PRENATAL VITAMINS W/ FOLIC ACID TABLET (FP) PO SCH (09:52)
[2021-09-27] MEDS: SILVER SULFADIAZINE 1% TOP CREAM 50 GM JAR TP SCH (11:12)
[2021-09-27] MEDS: FERROUS SO4 325 MG TABLET (FP) PO SCH (17:23)
[2021-09-27] MEDS: THIAMINE HCL 100 MG TABLET (FP) PO SCH (21:04)
[2021-09-27] MEDS: MELATONIN 5 MG TABLETS PO SCH (21:04)
[2021-09-27] MEDS: MAG HYDROX/AL HYDROX/SIMETH 30 ML UNIT-DOSE CUP PO PRN (22:16)
[2021-09-28] MEDS: guaiFENesin 200 MG/10 ML 10 ML UNIT-DOSE CUPS PO PRN (06:07)
[2021-09-28] MEDS: methaDONE HCL 40 MG DISPERSABLE TABLET PO SCH (06:07)
[2021-09-28] MEDS: FERROUS SO4 325 MG TABLET (FP) PO SCH ×2 (07:16→17:14)
[2021-09-28] MEDS: NICOTINE 7 MG/24 HOURS TOPICAL PATCH TD SCH (09:31)
[2021-09-28] MEDS: CEPHALEXIN MONOHYDRATE 500 MG CAPSULE (UD) PO SCH ×2 (09:32→21:19)
[2021-09-28] MEDS: KETOCONAZOLE 2% CREAM - 60GM TUBE TP SCH ×2 (09:32→21:35)
[2021-09-28] MEDS: SILVER SULFADIAZINE 1% TOP CREAM 50 GM JAR TP SCH (09:32)
[2021-09-28] MEDS: PRENATAL VITAMINS W/ FOLIC ACID TABLET (FP) PO SCH (09:32)
[2021-09-28] MEDS: NICOTINE 10 MG CARTRIDGE (INHALER) IH PRN ×2 (09:33→20:05)
[2021-09-28] MEDS: MELATONIN 5 MG TABLETS PO SCH (21:19)
[2021-09-28] MEDS: THIAMINE HCL 100 MG TABLET (FP) PO SCH (21:19)
[2021-09-29] MEDS: methaDONE HCL 40 MG DISPERSABLE TABLET PO SCH (06:08)
[2021-09-29] MEDS: FERROUS SO4 325 MG TABLET (FP) PO SCH ×2 (07:57→17:04)
[2021-09-29] MEDS: NICOTINE 10 MG CARTRIDGE (INHALER) IH PRN ×4 (08:43→21:48)
[2021-09-29] MEDS: hydrOXYzine PAMOATE 25 MG CAPSULE (FP) PO PRN ×2 (10:14→21:47)
[2021-09-29] MEDS: CEPHALEXIN MONOHYDRATE 500 MG CAPSULE (UD) PO SCH ×2 (10:14→21:47)
[2021-09-29] MEDS: PRENATAL VITAMINS W/ FOLIC ACID TABLET (FP) PO SCH (10:14)
[2021-09-29] MEDS: SILVER SULFADIAZINE 1% TOP CREAM 50 GM JAR TP SCH (10:15)
[2021-09-29] MEDS: NICOTINE 7 MG/24 HOURS TOPICAL PATCH TD SCH (10:15)
[2021-09-29] MEDS: KETOCONAZOLE 2% CREAM - 60GM TUBE TP SCH ×2 (10:17→21:48)
[2021-09-29] MEDS: THIAMINE HCL 100 MG TABLET (FP) PO SCH (21:47)
[2021-09-29] MEDS: MELATONIN 5 MG TABLETS PO SCH (21:48)
[2021-09-30] MEDS: methaDONE HCL 40 MG DISPERSABLE TABLET PO SCH (05:57)
[2021-09-30] MEDS: FERROUS SO4 325 MG TABLET (FP) PO SCH ×2 (08:05→19:36)
[2021-09-30] MEDS: PRENATAL VITAMINS W/ FOLIC ACID TABLET (FP) PO SCH (10:36)
[2021-09-30] MEDS: NICOTINE 10 MG CARTRIDGE (INHALER) IH PRN ×3 (10:37→21:38)
[2021-09-30] MEDS: NICOTINE 7 MG/24 HOURS TOPICAL PATCH TD SCH (10:37)
[2021-09-30] MEDS: hydrOXYzine PAMOATE 25 MG CAPSULE (FP) PO PRN (10:37)
[2021-09-30] MEDS: CEPHALEXIN MONOHYDRATE 500 MG CAPSULE (UD) PO SCH ×2 (10:37→21:36)
[2021-09-30] MEDS: SILVER SULFADIAZINE 1% TOP CREAM 50 GM JAR TP SCH (10:38)
[2021-09-30] MEDS: KETOCONAZOLE 2% CREAM - 60GM TUBE TP SCH ×2 (10:39→21:37)
[2021-09-30] MEDS: guaiFENesin 200 MG/10 ML 10 ML UNIT-DOSE CUPS PO PRN (19:36)
[2021-09-30] MEDS: MELATONIN 5 MG TABLETS PO SCH (21:36)
[2021-09-30] MEDS: THIAMINE HCL 100 MG TABLET (FP) PO SCH (21:36)
[2021-09-30] MEDS: IBUPROFEN 400 MG TABLET (FP) PO PRN (22:34)
[2021-10-01] MEDS: methaDONE HCL 40 MG DISPERSABLE TABLET PO SCH (06:10)
[2021-10-01] MEDS: NICOTINE 10 MG CARTRIDGE (INHALER) IH PRN ×4 (06:13→19:14)
[2021-10-01] MEDS: FERROUS SO4 325 MG TABLET (FP) PO SCH ×2 (07:02→17:23)
[2021-10-01] MEDS: PRENATAL VITAMINS W/ FOLIC ACID TABLET (FP) PO SCH (10:32)
[2021-10-01] MEDS: SILVER SULFADIAZINE 1% TOP CREAM 50 GM JAR TP SCH (10:33)
[2021-10-01] MEDS: CEPHALEXIN MONOHYDRATE 500 MG CAPSULE (UD) PO SCH ×2 (10:33→21:55)
[2021-10-01] MEDS: NICOTINE 7 MG/24 HOURS TOPICAL PATCH TD SCH (10:33)
[2021-10-01] MEDS: KETOCONAZOLE 2% CREAM - 60GM TUBE TP SCH ×2 (10:33→21:55)
[2021-10-01] MEDS: IBUPROFEN 400 MG TABLET (FP) PO PRN (17:40)
[2021-10-01] MEDS: MELATONIN 5 MG TABLETS PO SCH (21:55)
[2021-10-01] MEDS: THIAMINE HCL 100 MG TABLET (FP) PO SCH (21:55)
[2021-10-02] MEDS: methaDONE HCL 40 MG DISPERSABLE TABLET PO SCH (06:02)
[2021-10-02] MEDS: NICOTINE 10 MG CARTRIDGE (INHALER) IH PRN ×4 (06:03→21:32)
[2021-10-02] MEDS: FERROUS SO4 325 MG TABLET (FP) PO SCH ×2 (07:56→17:28)
[2021-10-02] MEDS: PRENATAL VITAMINS W/ FOLIC ACID TABLET (FP) PO SCH (10:18)
[2021-10-02] MEDS: NICOTINE 7 MG/24 HOURS TOPICAL PATCH TD SCH (10:18)
[2021-10-02] MEDS: KETOCONAZOLE 2% CREAM - 60GM TUBE TP SCH ×2 (10:18→21:31)
[2021-10-02] MEDS: SILVER SULFADIAZINE 1% TOP CREAM 50 GM JAR TP SCH (10:19)
[2021-10-02] MEDS: CEPHALEXIN MONOHYDRATE 500 MG CAPSULE (UD) PO SCH ×2 (10:19→21:31)
[2021-10-02] MEDS: MAG HYDROX/AL HYDROX/SIMETH 30 ML UNIT-DOSE CUP PO PRN (11:52)
[2021-10-02] MEDS: MELATONIN 5 MG TABLETS PO SCH (21:31)
[2021-10-02] MEDS: hydrOXYzine PAMOATE 25 MG CAPSULE (FP) PO PRN (21:31)
[2021-10-02] MEDS: THIAMINE HCL 100 MG TABLET (FP) PO SCH (21:31)
[2021-10-03] MEDS: methaDONE HCL 40 MG DISPERSABLE TABLET PO SCH (06:11)
[2021-10-03] MEDS: FERROUS SO4 325 MG TABLET (FP) PO SCH ×2 (07:34→18:32)
[2021-10-03] MEDS: KETOCONAZOLE 2% CREAM - 60GM TUBE TP SCH ×2 (10:12→21:34)
[2021-10-03] MEDS: SILVER SULFADIAZINE 1% TOP CREAM 50 GM JAR TP SCH (10:13)
[2021-10-03] MEDS: CEPHALEXIN MONOHYDRATE 500 MG CAPSULE (UD) PO SCH ×2 (10:14→21:32)
[2021-10-03] MEDS: PRENATAL VITAMINS W/ FOLIC ACID TABLET (FP) PO SCH (10:14)
[2021-10-03] MEDS: NICOTINE 10 MG CARTRIDGE (INHALER) IH PRN ×2 (10:15→14:40)
[2021-10-03] MEDS: NICOTINE 7 MG/24 HOURS TOPICAL PATCH TD SCH (10:15)
[2021-10-03] MEDS: MAG HYDROX/AL HYDROX/SIMETH 30 ML UNIT-DOSE CUP PO PRN (10:44)
[2021-10-03] MEDS ORDERED: cloNIDine HCL 0.1 MG TABLET PO ONE (20:50)
[2021-10-03] MEDS: hydrOXYzine PAMOATE 25 MG CAPSULE (FP) PO PRN (21:32)
[2021-10-03] MEDS: THIAMINE HCL 100 MG TABLET (FP) PO SCH (21:32)
[2021-10-03] MEDS: MELATONIN 5 MG TABLETS PO SCH (21:34)
[2021-10-04] MEDS: methaDONE HCL 40 MG DISPERSABLE TABLET PO SCH (06:00)
[2021-10-04] MEDS: hydrOXYzine PAMOATE 25 MG CAPSULE (FP) PO PRN (07:14)
[2021-10-04] MEDS: FERROUS SO4 325 MG TABLET (FP) PO SCH ×2 (07:59→17:42)
[2021-10-04] MEDS: CEPHALEXIN MONOHYDRATE 500 MG CAPSULE (UD) PO SCH ×2 (09:58→21:55)
[2021-10-04] MEDS: PRENATAL VITAMINS W/ FOLIC ACID TABLET (FP) PO SCH (09:58)
[2021-10-04] MEDS: NICOTINE 10 MG CARTRIDGE (INHALER) IH PRN ×4 (09:58→23:59)
[2021-10-04] MEDS: NICOTINE 7 MG/24 HOURS TOPICAL PATCH TD SCH (09:58)
[2021-10-04] MEDS: SILVER SULFADIAZINE 1% TOP CREAM 50 GM JAR TP SCH (10:00)
[2021-10-04] MEDS: KETOCONAZOLE 2% CREAM - 60GM TUBE TP SCH ×2 (10:00→21:55)
[2021-10-04] MEDS ORDERED: cloNIDine HCL 0.1 MG TABLET PO ONE (11:27)
[2021-10-04] MEDS ORDERED: cloNIDine HCL 0.1 MG TABLET PO PRN (11:28)
[2021-10-04] MEDS: MAG HYDROX/AL HYDROX/SIMETH 30 ML UNIT-DOSE CUP PO PRN (19:45)
[2021-10-04] MEDS: MELATONIN 5 MG TABLETS PO SCH (21:55)
[2021-10-04] MEDS: THIAMINE HCL 100 MG TABLET (FP) PO SCH (21:55)
[2021-10-05] MEDS: methaDONE HCL 40 MG DISPERSABLE TABLET PO SCH (06:12)
[2021-10-05] MEDS: NICOTINE 10 MG CARTRIDGE (INHALER) IH PRN ×4 (06:14→21:47)
[2021-10-05] MEDS: MAG HYDROX/AL HYDROX/SIMETH 30 ML UNIT-DOSE CUP PO PRN ×3 (06:51→22:12)
[2021-10-05] MEDS: FERROUS SO4 325 MG TABLET (FP) PO SCH ×2 (07:22→17:17)
[2021-10-05] MEDS: PRENATAL VITAMINS W/ FOLIC ACID TABLET (FP) PO SCH (10:42)
[2021-10-05] MEDS: CEPHALEXIN MONOHYDRATE 500 MG CAPSULE (UD) PO SCH ×2 (10:42→21:46)
[2021-10-05] MEDS: NICOTINE 7 MG/24 HOURS TOPICAL PATCH TD SCH (10:44)
[2021-10-05] MEDS: KETOCONAZOLE 2% CREAM - 60GM TUBE TP SCH ×2 (10:45→22:11)
[2021-10-05] MEDS: hydrOXYzine PAMOATE 25 MG CAPSULE (FP) PO PRN (17:13)
[2021-10-05] MEDS: THIAMINE HCL 100 MG TABLET (FP) PO SCH (21:46)
[2021-10-05] MEDS: MELATONIN 5 MG TABLETS PO SCH (21:46)
[2021-10-06] MEDS: methaDONE HCL 40 MG DISPERSABLE TABLET PO SCH (06:05)
[2021-10-06] MEDS: MAG HYDROX/AL HYDROX/SIMETH 30 ML UNIT-DOSE CUP PO PRN ×3 (07:27→23:09)
[2021-10-06] MEDS: FERROUS SO4 325 MG TABLET (FP) PO SCH ×2 (07:56→17:46)
[2021-10-06] MEDS: CEPHALEXIN MONOHYDRATE 500 MG CAPSULE (UD) PO SCH ×2 (10:31→21:35)
[2021-10-06] MEDS: PRENATAL VITAMINS W/ FOLIC ACID TABLET (FP) PO SCH (10:31)
[2021-10-06] MEDS: hydrOXYzine PAMOATE 25 MG CAPSULE (FP) PO PRN ×2 (10:31→21:35)
[2021-10-06] MEDS: KETOCONAZOLE 2% CREAM - 60GM TUBE TP SCH ×2 (10:32→21:36)
[2021-10-06] MEDS: NICOTINE 7 MG/24 HOURS TOPICAL PATCH TD SCH (10:32)
[2021-10-06] MEDS: NICOTINE 10 MG CARTRIDGE (INHALER) IH PRN ×4 (10:32→21:36)
[2021-10-06] MEDS: MELATONIN 5 MG TABLETS PO SCH (21:35)
[2021-10-06] MEDS: THIAMINE HCL 100 MG TABLET (FP) PO SCH (21:35)
[2021-10-07] MEDS: LOPERAMIDE HCL 2 MG CAPSULE PO PRN ×2 (03:34→23:38)
[2021-10-07] MEDS: methaDONE HCL 40 MG DISPERSABLE TABLET PO SCH (06:05)
[2021-10-07] MEDS: FERROUS SO4 325 MG TABLET (FP) PO SCH ×2 (07:49→17:30)
[2021-10-07] MEDS: PRENATAL VITAMINS W/ FOLIC ACID TABLET (FP) PO SCH (11:06)
[2021-10-07] MEDS: NICOTINE 7 MG/24 HOURS TOPICAL PATCH TD SCH (11:06)
[2021-10-07] MEDS: CEPHALEXIN MONOHYDRATE 500 MG CAPSULE (UD) PO SCH (11:07)
[2021-10-07] MEDS: NICOTINE 10 MG CARTRIDGE (INHALER) IH PRN ×3 (11:07→21:55)
[2021-10-07] MEDS: KETOCONAZOLE 2% CREAM - 60GM TUBE TP SCH ×2 (11:08→21:53)
[2021-10-07] MEDS: MAG HYDROX/AL HYDROX/SIMETH 30 ML UNIT-DOSE CUP PO PRN (16:00)
[2021-10-07] MEDS: MELATONIN 5 MG TABLETS PO SCH (21:52)
[2021-10-07] MEDS: THIAMINE HCL 100 MG TABLET (FP) PO SCH (21:54)
[2021-10-07] MEDS: hydrOXYzine PAMOATE 25 MG CAPSULE (FP) PO PRN (21:54)
[2021-10-08] MEDS: methaDONE HCL 40 MG DISPERSABLE TABLET PO SCH (06:05)
[2021-10-08] MEDS: FERROUS SO4 325 MG TABLET (FP) PO SCH ×2 (07:57→17:15)
[2021-10-08] MEDS: PRENATAL VITAMINS W/ FOLIC ACID TABLET (FP) PO SCH (10:29)
[2021-10-08] MEDS: NICOTINE 7 MG/24 HOURS TOPICAL PATCH TD SCH (10:30)
[2021-10-08] MEDS: NICOTINE 10 MG CARTRIDGE (INHALER) IH PRN ×2 (10:30→14:57)
[2021-10-08] MEDS: KETOCONAZOLE 2% CREAM - 60GM TUBE TP SCH ×2 (10:31→22:18)
[2021-10-08] MEDS: SILVER SULFADIAZINE 1% TOP CREAM 50 GM JAR TP SCH (11:42)
[2021-10-08] MEDS: THIAMINE HCL 100 MG TABLET (FP) PO SCH (22:18)
[2021-10-08] MEDS: MELATONIN 5 MG TABLETS PO SCH (22:18)
[2021-10-09] MEDS: MAG HYDROX/AL HYDROX/SIMETH 30 ML UNIT-DOSE CUP PO PRN ×3 (01:22→16:39)
[2021-10-09] MEDS: NICOTINE 10 MG CARTRIDGE (INHALER) IH PRN ×4 (01:23→22:30)
[2021-10-09] MEDS: methaDONE HCL 40 MG DISPERSABLE TABLET PO SCH (06:19)
[2021-10-09] MEDS: FERROUS SO4 325 MG TABLET (FP) PO SCH ×2 (07:05→18:26)
[2021-10-09] MEDS: PRENATAL VITAMINS W/ FOLIC ACID TABLET (FP) PO SCH (10:52)
[2021-10-09] MEDS: NICOTINE 7 MG/24 HOURS TOPICAL PATCH TD SCH (10:53)
[2021-10-09] MEDS: SILVER SULFADIAZINE 1% TOP CREAM 50 GM JAR TP SCH (10:53)
[2021-10-09] MEDS: KETOCONAZOLE 2% CREAM - 60GM TUBE TP SCH ×2 (10:53→21:22)
[2021-10-09] MEDS: hydrOXYzine PAMOATE 25 MG CAPSULE (FP) PO PRN (21:22)
[2021-10-09] MEDS: MELATONIN 5 MG TABLETS PO SCH (21:22)
[2021-10-09] MEDS: THIAMINE HCL 100 MG TABLET (FP) PO SCH (21:22)
[2021-10-10] MEDS: MAG HYDROX/AL HYDROX/SIMETH 30 ML UNIT-DOSE CUP PO PRN ×2 (01:02→10:51)
[2021-10-10] MEDS: methaDONE HCL 40 MG DISPERSABLE TABLET PO SCH (06:13)
[2021-10-10] MEDS: NICOTINE 10 MG CARTRIDGE (INHALER) IH PRN ×4 (06:16→22:43)
[2021-10-10] MEDS: FERROUS SO4 325 MG TABLET (FP) PO SCH ×2 (07:37→17:56)
[2021-10-10] MEDS: PRENATAL VITAMINS W/ FOLIC ACID TABLET (FP) PO SCH (10:48)
[2021-10-10] MEDS: KETOCONAZOLE 2% CREAM - 60GM TUBE TP SCH ×2 (10:49→22:43)
[2021-10-10] MEDS: NICOTINE 7 MG/24 HOURS TOPICAL PATCH TD SCH (10:49)
[2021-10-10] MEDS: SILVER SULFADIAZINE 1% TOP CREAM 50 GM JAR TP SCH (10:50)
[2021-10-10] MEDS: LOPERAMIDE HCL 2 MG CAPSULE PO PRN (14:26)
[2021-10-10] MEDS: THIAMINE HCL 100 MG TABLET (FP) PO SCH (22:04)
[2021-10-10] MEDS: MELATONIN 5 MG TABLETS PO SCH (22:04)
[2021-10-10] MEDS: hydrOXYzine PAMOATE 25 MG CAPSULE (FP) PO PRN (22:04)
[2021-10-11] MEDS: methaDONE HCL 40 MG DISPERSABLE TABLET PO SCH (06:12)
[2021-10-11] MEDS: MAG HYDROX/AL HYDROX/SIMETH 30 ML UNIT-DOSE CUP PO PRN (07:11)
[2021-10-11] MEDS: FERROUS SO4 325 MG TABLET (FP) PO SCH ×2 (07:19→17:45)
[2021-10-11] MEDS: NICOTINE 7 MG/24 HOURS TOPICAL PATCH TD SCH (10:38)
[2021-10-11] MEDS: NICOTINE 10 MG CARTRIDGE (INHALER) IH PRN ×4 (10:38→21:44)
[2021-10-11] MEDS: SILVER SULFADIAZINE 1% TOP CREAM 50 GM JAR TP SCH (10:38)
[2021-10-11] MEDS: PRENATAL VITAMINS W/ FOLIC ACID TABLET (FP) PO SCH (10:38)
[2021-10-11] MEDS: KETOCONAZOLE 2% CREAM - 60GM TUBE TP SCH ×2 (10:39→21:44)
[2021-10-11] MEDS: BISMUTH SUBSALICYLATE 262 MG/15 ML BTL PO PRN (17:32)
[2021-10-11] MEDS: MELATONIN 5 MG TABLETS PO SCH (21:44)
[2021-10-11] MEDS: THIAMINE HCL 100 MG TABLET (FP) PO SCH (21:45)
[2021-10-12] MEDS: methaDONE HCL 40 MG DISPERSABLE TABLET PO SCH (06:03)
[2021-10-12] MEDS: FERROUS SO4 325 MG TABLET (FP) PO SCH ×2 (07:07→17:25)
[2021-10-12] MEDS: NICOTINE 10 MG CARTRIDGE (INHALER) IH PRN ×4 (08:53→21:42)
[2021-10-12] MEDS: NICOTINE 7 MG/24 HOURS TOPICAL PATCH TD SCH (10:12)
[2021-10-12] MEDS: ACETAMINOPHEN 325 MG TABLET (FP) PO PRN ×2 (10:13→17:19)
[2021-10-12] MEDS: PRENATAL VITAMINS W/ FOLIC ACID TABLET (FP) PO SCH (10:14)
[2021-10-12] MEDS: KETOCONAZOLE 2% CREAM - 60GM TUBE TP SCH ×2 (10:49→21:42)
[2021-10-12] MEDS: SILVER SULFADIAZINE 1% TOP CREAM 50 GM JAR TP SCH (10:49)
[2021-10-12] MEDS: AMMONIUM LACTATE 12% LOTION 225 GM BOTTLE TP SCH (10:58)
[2021-10-12] MEDS: SULFAMETHOXAZOLE/TRIMETHOPRIM 800MG/160MG D.S. TABLET PO SCH ×2 (10:58→21:42)
[2021-10-12] MEDS: MELATONIN 5 MG TABLETS PO SCH (21:42)
[2021-10-12] MEDS: THIAMINE HCL 100 MG TABLET (FP) PO SCH (21:42)
[2021-10-12] MEDS: hydrOXYzine PAMOATE 25 MG CAPSULE (FP) PO PRN (21:42)
[2021-10-13] MEDS: methaDONE HCL 40 MG DISPERSABLE TABLET PO SCH (06:06)
[2021-10-13] MEDS: FERROUS SO4 325 MG TABLET (FP) PO SCH ×2 (07:57→17:16)
[2021-10-13] MEDS: AMMONIUM LACTATE 12% LOTION 225 GM BOTTLE TP SCH (10:15)
[2021-10-13] MEDS: PRENATAL VITAMINS W/ FOLIC ACID TABLET (FP) PO SCH (10:15)
[2021-10-13] MEDS: SULFAMETHOXAZOLE/TRIMETHOPRIM 800MG/160MG D.S. TABLET PO SCH ×2 (10:15→21:28)
[2021-10-13] MEDS: NICOTINE 10 MG CARTRIDGE (INHALER) IH PRN ×4 (10:16→21:28)
[2021-10-13] MEDS: SILVER SULFADIAZINE 1% TOP CREAM 50 GM JAR TP SCH (10:16)
[2021-10-13] MEDS: NICOTINE 7 MG/24 HOURS TOPICAL PATCH TD SCH (10:17)
[2021-10-13] MEDS: KETOCONAZOLE 2% CREAM - 60GM TUBE TP SCH ×2 (10:17→21:39)
[2021-10-13] MEDS: ACETAMINOPHEN 325 MG TABLET (FP) PO PRN (17:14)
[2021-10-13] MEDS: THIAMINE HCL 100 MG TABLET (FP) PO SCH (21:28)
[2021-10-13] MEDS: MELATONIN 5 MG TABLETS PO SCH (21:28)
[2021-10-14] MEDS: methaDONE HCL 40 MG DISPERSABLE TABLET PO SCH (06:09)
[2021-10-14] MEDS: FERROUS SO4 325 MG TABLET (FP) PO SCH ×2 (07:08→17:57)
[2021-10-14] MEDS: PRENATAL VITAMINS W/ FOLIC ACID TABLET (FP) PO SCH (10:55)
[2021-10-14] MEDS: NICOTINE 7 MG/24 HOURS TOPICAL PATCH TD SCH (10:55)
[2021-10-14] MEDS: AMMONIUM LACTATE 12% LOTION 225 GM BOTTLE TP SCH (10:56)
[2021-10-14] MEDS: ACETAMINOPHEN 325 MG TABLET (FP) PO PRN (10:56)
[2021-10-14] MEDS: NICOTINE 10 MG CARTRIDGE (INHALER) IH PRN ×3 (10:57→21:25)
[2021-10-14] MEDS: SILVER SULFADIAZINE 1% TOP CREAM 50 GM JAR TP SCH (10:58)
[2021-10-14] MEDS: KETOCONAZOLE 2% CREAM - 60GM TUBE TP SCH ×2 (10:58→21:33)
[2021-10-14] MEDS: SULFAMETHOXAZOLE/TRIMETHOPRIM 800MG/160MG D.S. TABLET PO SCH ×2 (10:58→21:24)
[2021-10-14] MEDS: THIAMINE HCL 100 MG TABLET (FP) PO SCH (21:24)
[2021-10-14] MEDS: MELATONIN 5 MG TABLETS PO SCH (21:24)
[2021-10-14] MEDS: MAG HYDROX/AL HYDROX/SIMETH 30 ML UNIT-DOSE CUP PO PRN (21:24)
[2021-10-15] MEDS: methaDONE HCL 40 MG DISPERSABLE TABLET PO SCH (06:11)
[2021-10-15] MEDS: NICOTINE 10 MG CARTRIDGE (INHALER) IH PRN ×4 (06:12→21:33)
[2021-10-15] MEDS: FERROUS SO4 325 MG TABLET (FP) PO SCH ×2 (07:01→18:15)
[2021-10-15] MEDS: PRENATAL VITAMINS W/ FOLIC ACID TABLET (FP) PO SCH (10:30)
[2021-10-15] MEDS: SULFAMETHOXAZOLE/TRIMETHOPRIM 800MG/160MG D.S. TABLET PO SCH ×2 (10:31→21:33)
[2021-10-15] MEDS: NICOTINE 7 MG/24 HOURS TOPICAL PATCH TD SCH (10:31)
[2021-10-15] MEDS: KETOCONAZOLE 2% CREAM - 60GM TUBE TP SCH (10:32)
[2021-10-15] MEDS: AMMONIUM LACTATE 12% LOTION 225 GM BOTTLE TP SCH (10:32)
[2021-10-15] MEDS: SILVER SULFADIAZINE 1% TOP CREAM 50 GM JAR TP SCH (10:34)
[2021-10-15] MEDS: ACETAMINOPHEN 325 MG TABLET (FP) PO PRN (13:35)
[2021-10-15] MEDS: MAG HYDROX/AL HYDROX/SIMETH 30 ML UNIT-DOSE CUP PO PRN (18:40)
[2021-10-15] MEDS: MELATONIN 5 MG TABLETS PO SCH (21:33)
[2021-10-15] MEDS: THIAMINE HCL 100 MG TABLET (FP) PO SCH (21:33)
[2021-10-16] MEDS: KETOCONAZOLE 2% CREAM - 60GM TUBE TP SCH ×3 (00:02→22:25)
[2021-10-16] MEDS: methaDONE HCL 40 MG DISPERSABLE TABLET PO SCH (06:10)
[2021-10-16] MEDS: NICOTINE 10 MG CARTRIDGE (INHALER) IH PRN ×4 (06:11→21:51)
[2021-10-16] MEDS: FERROUS SO4 325 MG TABLET (FP) PO SCH ×2 (07:09→16:55)
[2021-10-16] MEDS: PRENATAL VITAMINS W/ FOLIC ACID TABLET (FP) PO SCH (10:04)
[2021-10-16] MEDS: SULFAMETHOXAZOLE/TRIMETHOPRIM 800MG/160MG D.S. TABLET PO SCH ×2 (10:05→21:50)
[2021-10-16] MEDS: SILVER SULFADIAZINE 1% TOP CREAM 50 GM JAR TP SCH (10:05)
[2021-10-16] MEDS: NICOTINE 7 MG/24 HOURS TOPICAL PATCH TD SCH (10:05)
[2021-10-16] MEDS: AMMONIUM LACTATE 12% LOTION 225 GM BOTTLE TP SCH (10:06)
[2021-10-16] MEDS: THIAMINE HCL 100 MG TABLET (FP) PO SCH (21:50)
[2021-10-16] MEDS: MELATONIN 5 MG TABLETS PO SCH (21:50)
[2021-10-17] MEDS: methaDONE HCL 40 MG DISPERSABLE TABLET PO SCH (06:15)
[2021-10-17] MEDS: FERROUS SO4 325 MG TABLET (FP) PO SCH ×2 (07:09→17:54)
[2021-10-17] MEDS: ACETAMINOPHEN 325 MG TABLET (FP) PO PRN (07:21)
[2021-10-17] MEDS: PRENATAL VITAMINS W/ FOLIC ACID TABLET (FP) PO SCH (10:25)
[2021-10-17] MEDS: NICOTINE 7 MG/24 HOURS TOPICAL PATCH TD SCH (10:26)
[2021-10-17] MEDS: KETOCONAZOLE 2% CREAM - 60GM TUBE TP SCH ×2 (10:26→21:52)
[2021-10-17] MEDS: SILVER SULFADIAZINE 1% TOP CREAM 50 GM JAR TP SCH (10:26)
[2021-10-17] MEDS: AMMONIUM LACTATE 12% LOTION 225 GM BOTTLE TP SCH (10:26)
[2021-10-17] MEDS: SULFAMETHOXAZOLE/TRIMETHOPRIM 800MG/160MG D.S. TABLET PO SCH ×2 (10:27→21:51)
[2021-10-17] MEDS: NICOTINE 10 MG CARTRIDGE (INHALER) IH PRN ×3 (10:27→21:52)
[2021-10-17] MEDS: MAG HYDROX/AL HYDROX/SIMETH 30 ML UNIT-DOSE CUP PO PRN (11:06)
[2021-10-17] MEDS: MELATONIN 5 MG TABLETS PO SCH (21:51)
[2021-10-17] MEDS: THIAMINE HCL 100 MG TABLET (FP) PO SCH (21:52)
[2021-10-18] MEDS: IBUPROFEN 400 MG TABLET (FP) PO PRN (04:48)
[2021-10-18] MEDS: methaDONE HCL 40 MG DISPERSABLE TABLET PO SCH (06:04)
[2021-10-18] MEDS: NICOTINE 10 MG CARTRIDGE (INHALER) IH PRN ×4 (06:05→21:34)
[2021-10-18] MEDS: MAG HYDROX/AL HYDROX/SIMETH 30 ML UNIT-DOSE CUP PO PRN (07:09)
[2021-10-18] MEDS: FERROUS SO4 325 MG TABLET (FP) PO SCH ×2 (07:32→17:25)
[2021-10-18] MEDS: PRENATAL VITAMINS W/ FOLIC ACID TABLET (FP) PO SCH (10:23)
[2021-10-18] MEDS: SULFAMETHOXAZOLE/TRIMETHOPRIM 800MG/160MG D.S. TABLET PO SCH ×2 (10:24→21:33)
[2021-10-18] MEDS: AMMONIUM LACTATE 12% LOTION 225 GM BOTTLE TP SCH (10:24)
[2021-10-18] MEDS: SILVER SULFADIAZINE 1% TOP CREAM 50 GM JAR TP SCH (10:24)
[2021-10-18] MEDS: KETOCONAZOLE 2% CREAM - 60GM TUBE TP SCH ×2 (10:24→22:13)
[2021-10-18] MEDS: NICOTINE 7 MG/24 HOURS TOPICAL PATCH TD SCH (10:24)
[2021-10-18] MEDS: hydrOXYzine PAMOATE 25 MG CAPSULE (FP) PO PRN (21:33)
[2021-10-18] MEDS: THIAMINE HCL 100 MG TABLET (FP) PO SCH (21:33)
[2021-10-18] MEDS: MELATONIN 5 MG TABLETS PO SCH (21:33)
[2021-10-18] MEDS: ACETAMINOPHEN 325 MG TABLET (FP) PO PRN (23:42)
[2021-10-19] MEDS: methaDONE HCL 40 MG DISPERSABLE TABLET PO SCH (06:11)
[2021-10-19] MEDS: NICOTINE 10 MG CARTRIDGE (INHALER) IH PRN ×3 (06:14→21:54)
[2021-10-19] MEDS: FERROUS SO4 325 MG TABLET (FP) PO SCH ×2 (07:04→17:23)
[2021-10-19] MEDS: MAG HYDROX/AL HYDROX/SIMETH 30 ML UNIT-DOSE CUP PO PRN (07:04)
[2021-10-19] MEDS: AMMONIUM LACTATE 12% LOTION 225 GM BOTTLE TP SCH (09:51)
[2021-10-19] MEDS: NICOTINE 7 MG/24 HOURS TOPICAL PATCH TD SCH (09:51)
[2021-10-19] MEDS: SULFAMETHOXAZOLE/TRIMETHOPRIM 800MG/160MG D.S. TABLET PO SCH ×2 (09:51→21:53)
[2021-10-19] MEDS: KETOCONAZOLE 2% CREAM - 60GM TUBE TP SCH ×2 (09:51→21:54)
[2021-10-19] MEDS: PRENATAL VITAMINS W/ FOLIC ACID TABLET (FP) PO SCH (09:51)
[2021-10-19] MEDS: SILVER SULFADIAZINE 1% TOP CREAM 50 GM JAR TP SCH (09:52)
[2021-10-19] MEDS: BISMUTH SUBSALICYLATE 262 MG/15 ML BTL PO PRN (18:44)
[2021-10-19] MEDS: THIAMINE HCL 100 MG TABLET (FP) PO SCH (21:53)
[2021-10-19] MEDS: MELATONIN 5 MG TABLETS PO SCH (21:54)
[2021-10-20] MEDS: methaDONE HCL 40 MG DISPERSABLE TABLET PO SCH (05:58)
[2021-10-20] MEDS: NICOTINE 10 MG CARTRIDGE (INHALER) IH PRN ×4 (05:59→23:42)
[2021-10-20] MEDS: FERROUS SO4 325 MG TABLET (FP) PO SCH ×2 (07:31→17:16)
[2021-10-20] MEDS: MAG HYDROX/AL HYDROX/SIMETH 30 ML UNIT-DOSE CUP PO PRN (07:38)
[2021-10-20] MEDS: KETOCONAZOLE 2% CREAM - 60GM TUBE TP SCH ×2 (10:01→23:26)
[2021-10-20] MEDS: PRENATAL VITAMINS W/ FOLIC ACID TABLET (FP) PO SCH (10:01)
[2021-10-20] MEDS: NICOTINE 7 MG/24 HOURS TOPICAL PATCH TD SCH (10:01)
[2021-10-20] MEDS: AMMONIUM LACTATE 12% LOTION 225 GM BOTTLE TP SCH (10:01)
[2021-10-20] MEDS: SILVER SULFADIAZINE 1% TOP CREAM 50 GM JAR TP SCH (10:02)
[2021-10-20] MEDS: SULFAMETHOXAZOLE/TRIMETHOPRIM 800MG/160MG D.S. TABLET PO SCH ×2 (10:03→23:24)
[2021-10-20] MEDS: BACITRACIN 0.9 GM PACKET TP SCH ×2 (13:38→23:24)
[2021-10-20 17:42] LABS: CALCIUM 9.1 mg/dL (8.5-10.1)
[2021-10-20 17:44] LABS: ALBUMIN 3.4 g/dl (3.4-5.0); BLOOD UREA NITROGEN 37.3 mg/dL (7-18)
[2021-10-20 17:47] LABS: CREATININE 1.5 mg/dL (0.55-1.3)
[2021-10-20 17:49] LABS: BILIRUBIN,TOTAL 0.2 mg/dL (0.2-1); TOT PROT 9.2 g/dl (6.4-8.2)
[2021-10-20 17:54] LABS: HEMATOCRIT 28.8 % (35.4-49); HEMOGLOBIN 9.5 GM/dL (11.7-16.9); MCH 25.8 pg (25.7-33.7); MCHC 32.9 g/dl (32.0-35.9); MEAN CELL VOLUME 78.3 fl (80-96); MEAN PLT VOLUME 7.9 fl (7.5-11.1); PLATELET COUNT 221 10^3/uL (134-434); RBC 3.67 M/mm3 (4.00-5.60); RDW 18.8 % (11.9-15.9); WHITE BLOOD COUNT 3.3 K/mm3 (4.0-10.0)
[2021-10-20 17:56] LABS: INR 1.08 (0.83-1.09); PROTHROMBIN TIME (PATIENT) 12.4 SEC (9.7-13.0)
[2021-10-20] MEDS: ACETAMINOPHEN 325 MG TABLET (FP) PO PRN (23:24)
[2021-10-20] MEDS: hydrOXYzine PAMOATE 25 MG CAPSULE (FP) PO PRN (23:24)
[2021-10-20] MEDS: THIAMINE HCL 100 MG TABLET (FP) PO SCH (23:24)
[2021-10-20] MEDS: MELATONIN 5 MG TABLETS PO SCH (23:26)
[2021-10-21] MEDS: methaDONE HCL 40 MG DISPERSABLE TABLET PO SCH (06:01)
[2021-10-21] MEDS: NICOTINE 10 MG CARTRIDGE (INHALER) IH PRN (06:02)
[2021-10-21] MEDS: MAG HYDROX/AL HYDROX/SIMETH 30 ML UNIT-DOSE CUP PO PRN (07:04)
[2021-10-21] MEDS: FERROUS SO4 325 MG TABLET (FP) PO SCH (07:05)
[2021-10-21 07:30] VITALS: TEMP 96.8
[2021-10-21] MEDS: BACITRACIN 0.9 GM PACKET TP SCH (09:43)
[2021-10-21] MEDS: SULFAMETHOXAZOLE/TRIMETHOPRIM 800MG/160MG D.S. TABLET PO SCH (09:43)
[2021-10-21] MEDS: AMMONIUM LACTATE 12% LOTION 225 GM BOTTLE TP SCH (09:43)
[2021-10-21] MEDS: NICOTINE 7 MG/24 HOURS TOPICAL PATCH TD SCH (09:43)
[2021-10-21] MEDS: SILVER SULFADIAZINE 1% TOP CREAM 50 GM JAR TP SCH (09:44)
[2021-10-21] MEDS: PRENATAL VITAMINS W/ FOLIC ACID TABLET (FP) PO SCH (09:44)
[2021-10-21] MEDS: KETOCONAZOLE 2% CREAM - 60GM TUBE TP SCH (09:44)
[2021-10-21 11:19] VITALS: BP 120/72; PULSE 73
== END 2021-10-21 10:00 | disposition home or self-care (01) | DRG 772 ==
LOC: YASAS 14:26 → INTOOBSV 14:27 → OBSVTOIN 14:27 → Y3W 14:27 → Y5N 09-28 13:42
PROVIDERS: ADMIT Allergy & Immunology; ATTEND Allergy & Immunology
PROC: HZ42ZZZ Group Counseling for Substance Abuse Treatment, Cognitive-Behavioral (ICD-10-PCS; principal; 2021-09-24)
DX: F10.20 Alcohol dependence, uncomplicated (principal); F11.20 Opioid dependence, uncomplicated; F14.20 Cocaine dependence, uncomplicated; F17.210 Nicotine dependence, cigarettes, uncomplicated; F31.9 Bipolar disorder, unspecified; F41.9 Anxiety disorder, unspecified; Z21 Asymptomatic human immunodeficiency virus [HIV] infection status; L03.116 Cellulitis of left lower limb; L97.821 Non-pressure chronic ulcer of other part of left lower leg limited to breakdown of skin; R10.13 Epigastric pain; B18.2 Chronic viral hepatitis C; R63.4 Abnormal weight loss; Z68.22 Body mass index [BMI] 22.0-22.9, adult; Z91.013 Allergy to seafood; Z91.19 Patient's noncompliance with other medical treatment and regimen
CPT/HCPCS: 36415; 80053; 82962; 85027; 85610; C9803; G0378; J0735; U0003; U0005

== ENCOUNTER 2021-10-20 16:35 | Emergency (ER) | payer OTHER ==
[2021-10-20 17:01] VITALS: BP 137/86; PULSE 67; TEMP 97.8; BMI 24.8
== END 2021-10-20 22:03 | disposition left against medical advice (07) ==
LOC: JER 16:35
DX: R22.42 Localized swelling, mass and lump, left lower limb (principal); Z91.19 Patient's noncompliance with other medical treatment and regimen
CPT/HCPCS: 99283-25; 99284-25